=== PATIENT | male | born 1955 | race Caucasian/White ===

== ENCOUNTER 2017-10-23 14:09 | Outpatient (CLI) | payer OTHER ==
[~2017-10-23 14:09] MED LIST: ALPR0.5T8 PO; ASPI-611 PO; CETI-102 PO; CLOT15CR73 TP; CYCL-1 PO; EXEN10PE3 SQ; FENO135C PO; GLUC750T8 PO; GLYB-97 PO; HYDR-569 PO; LANTUS SQ; LOSA100T28 PO; MESA10002 RC; MULT1TAB74 PO; OMEG1CAP2 PO; TADA10TA PO; TRAM50TA2 PO; ZOC40T PO
== END 2017-10-23 23:59 | disposition home or self-care (01) ==
LOC: RAD 14:09
PROVIDERS: ATTEND Nurse Practitioner Family
DX: M47.816 Spondylosis without myelopathy or radiculopathy, lumbar region (principal); M48.061 Spinal stenosis, lumbar region without neurogenic claudication; I10 Essential (primary) hypertension; E11.9 Type 2 diabetes mellitus without complications; F17.200 Nicotine dependence, unspecified, uncomplicated
CPT/HCPCS: 72148

== ENCOUNTER → 2017-12-19 | Outpatient (CLI) | payer OTHER ==
[2017-12-19 06:45] LABS: BASOPHILS % (AUTO) 0.4 % (0-1); EOSINOPHILS # (AUTO) 0.1 X10'3 (0-0.9); EOSINOPHILS % (AUTO) 1.2 % (0-6); HEMOGLOBIN 16.8 g/dl (14.0-17.9); LYMPHOCYTES # (AUTO) 1.9 X10'3 (1.1-4.8); LYMPHOCYTES % (AUTO) 22.3 % (21-51); MEAN CORPUSCULAR HEMOGLOBIN 30.4 PG (27.0-31.0); MEAN CORPUSCULAR HGB CONC 35.6 % (33.0-36.5); MEAN CORPUSCULAR VOLUME 85.3 FL (78-98); MEAN PLATELET VOLUME 9.1 FL (7.4-10.4); MONOCYTES # (AUTO) 0.5 X10'3 (0-0.9); MONOCYTES % (AUTO) 6.2 % (2-12); NEUTROPHILS # (AUTO) 5.8 X10'3 (1.8-7.7); NEUTROPHILS % (AUTO) 69.9 % (42-75); PLATELET COUNT 200 X10'3 (140-440); RED BLOOD COUNT 5.51 X10'6 (4.70-6.10); RED CELL DISTRIBUTION WIDTH 13.9 % (11.5-14.5); WHITE BLOOD COUNT 8.3 X10'3 (4.5-11.0)
[2017-12-19 07:03] LABS: HEMOGLOBIN A1C 9.1 % (4.5-6.2)
[2017-12-19 07:07] LABS: ALANINE AMINOTRANSFERASE 66 U/L (12-78); ALBUMIN 3.8 G/DL (3.4-5.0); ALBUMIN/GLOBULIN RATIO 1.1 (1.1-1.5); ALKALINE PHOSPHATASE 72 IU/L (46-116); ANION GAP 13 (8-16); ASPARTATE AMINO TRANSFERASE 37 U/L (10-37); BILIRUBIN,TOTAL 0.5 MG/DL (0.1-1.0); BLOOD UREA NITROGEN 18 MG/DL (7-18); BUN/CREATININE RATIO 20.5 (5.4-32.0); CALCIUM 9.1 MG/DL (8.5-10.1); CHLORIDE 101 MMOL/L (99-107); CHOL/HDL RATIO 17.6 (0.00-4.99); CHOLESTEROL 158 MG/DL (0-200); CREATININE 0.88 MG/DL (0.60-1.10); GLUCOSE 353 MG/DL (70-104); HDL CHOLESTEROL 9 MG/DL (35-60); LDL CHOLESTEROL 71 MG/DL (50-100); SODIUM 137 MMOL/L (135-145); TOTAL CARBON DIOXIDE 23.1 MMOL/L (24-32); TOTAL PROTEIN 7.4 G/DL (6.4-8.2); TRIGLYCERIDES 794 MG/DL (20-135); eGFR 88 ML/MIN
[2017-12-19 07:10] LABS: POTASSIUM 3.8 MMOL/L (3.5-5.1)
[2017-12-21 13:14] LABS: TESTOSTERONE, FREE, DIRECT 13.7 pg/mL (6.6-18.1)
== END ==
LOC: LAB 05:54
PROVIDERS: ATTEND Family Medicine
DX: Z00.01 Encounter for general adult medical examination with abnormal findings (principal); I10 Essential (primary) hypertension; E11.9 Type 2 diabetes mellitus without complications; F17.200 Nicotine dependence, unspecified, uncomplicated
CPT/HCPCS: 36415; 80053; 80061; 83036; 84402; 84403; 84439; 84443; 85025

== ENCOUNTER 2018-03-30 21:45 | Emergency (ER) | payer OTHER ==
[~2018-03-30] VITALS: Ht 172.7 cm; Wt 104.2 kg
[2018-03-30 21:50] VITALS: BP 163/79
[2018-03-30] MEDS ORDERED: ketorolac trometh. 30mg/ml inj. IM ONE (23:45)
== END 2018-03-31 03:05 | disposition home or self-care (01) ==
LOC: ER 21:45
DX: S76.811A Strain of other specified muscles, fascia and tendons at thigh level, right thigh, initial encounter (principal); I25.10 Atherosclerotic heart disease of native coronary artery without angina pectoris; E78.00 Pure hypercholesterolemia, unspecified; I49.9 Cardiac arrhythmia, unspecified; E11.9 Type 2 diabetes mellitus without complications; Z98.61 Coronary angioplasty status; Z79.82 Long term (current) use of aspirin; Z79.4 Long term (current) use of insulin; Z79.899 Other long term (current) drug therapy; W13.8XXA Fall from, out of or through other building or structure, initial encounter; Y93.39 Activity, other involving climbing, rappelling and jumping off; Y92.89 Other specified places as the place of occurrence of the external cause; Y99.8 Other external cause status
CPT/HCPCS: 96372; 99283; J1885

== ENCOUNTER 2018-06-29 09:24 | Inpatient (IN) | payer OTHER ==
[~2018-06-29] VITALS: Ht 172.7 cm; Wt 127.0 kg
[2018-06-29] MEDS ORDERED: acetaminophen 325mg tablet PO ONE (10:05)
[2018-06-29] MEDS ORDERED: normal saline 1000ML IV soln IVB ONE (10:05)
[2018-06-29 10:55] LABS: BASOPHILS % (AUTO) 0.4 % (0-1); EOSINOPHILS % (AUTO) 0.2 % (0-6); HEMATOCRIT 48.8 % (42.0-52.0); HEMOGLOBIN 16.3 g/dl (14.0-17.9); LYMPHOCYTES # (AUTO) 0.4 X10'3 (1.1-4.8); LYMPHOCYTES % (AUTO) 4.9 % (21-51); MEAN CORPUSCULAR HEMOGLOBIN 29.1 PG (27.0-31.0); MEAN CORPUSCULAR HGB CONC 33.4 % (33.0-36.5); MEAN CORPUSCULAR VOLUME 87.2 FL (78-98); MONOCYTES # (AUTO) 0.3 X10'3 (0-0.9); MONOCYTES % (AUTO) 3.5 % (2-12); NEUTROPHILS # (AUTO) 8.1 X10'3 (1.8-7.7); PLATELET COUNT 138 X10'3 (140-440); RED CELL DISTRIBUTION WIDTH 13.3 % (11.5-14.5); WHITE BLOOD COUNT 8.8 X10'3 (4.5-11.0)
[2018-06-29] MEDS ORDERED: ondansetron/PF 4mg/2ml inj IV ONE (11:00)
[2018-06-29 11:01] LABS: CLARITY,URINE CLEAR (Clear); COLOR,URINE YELLOW (Yellow); GLUCOSE, URINE >=1000 mg/dl (Neg); KETONES,URINE TRACE mg/dl (Neg); LEUKOCYTE ESTERASE ,URINE NEGATIVE (Neg); NITRITES, URINE NEGATIVE (Neg); OCCULT BLOOD,URINE TRACE-INTACT (Neg); PH,URINE 5.5 (4.8-8.0); PROTEIN,URINE 30 mg/dl (Neg); UROBILINOGEN,URINE 0.2 E.U/dL (0.2-1.0)
[2018-06-29 11:04] LABS: UA COLLECTION TYPE STRAIGHT CATH
[2018-06-29 11:05] LABS: PARTIAL THROMBOPLASTIN TIME 25 SECONDS (22-32); PROTHROMBIN TIME 10.7 SECONDS (9.0-12.0)
[2018-06-29 11:11] LABS: ALANINE AMINOTRANSFERASE 53 U/L (12-78); ALBUMIN 3.5 G/DL (3.4-5.0); ALKALINE PHOSPHATASE 46 IU/L (46-116); ANION GAP 13 (8-16); ASPARTATE AMINO TRANSFERASE 29 U/L (10-37); BILIRUBIN,TOTAL 0.7 MG/DL (0.1-1.0); BLOOD UREA NITROGEN 15 MG/DL (7-18); BUN/CREATININE RATIO 13.4 (5.4-32.0); CALCIUM 8.6 MG/DL (8.5-10.1); CHLORIDE 101 MMOL/L (99-107); CREATININE 1.12 MG/DL (0.60-1.10); GLUCOSE 174 MG/DL (70-104); POTASSIUM 3.5 MMOL/L (3.5-5.1); SODIUM 137 MMOL/L (135-145); TOTAL CARBON DIOXIDE 22.7 MMOL/L (24-32); TOTAL PROTEIN 6.9 G/DL (6.4-8.2); eGFR 67 ML/MIN
[2018-06-29 11:26] LABS: AMORPHOUS URATES 1+; BACTERIA,URINE NONE SEEN /HPF (Neg); RBC,URINE 0-2 /HPF (0-2); SQUAMOUS EPITHELIAL CELL,UR FEW /LPF (FEW); WBC,URINE 0-4 /HPF (0-4)
[2018-06-29] MEDS ORDERED: piperacillin/tazo 3.375gm/50ml 50 ML IV ONE (12:40)
[2018-06-29] MEDS ORDERED: cyclobenzaprine 10mg tablet PO PRN (14:40)
[2018-06-29] MEDS ORDERED: ALPRAZolam 0.5mg tablet PO PRN (14:40)
[2018-06-29] MEDS ORDERED: magnesium hydroxide 30ml (MOM) UD suspension PO PRN (14:45)
[2018-06-29] MEDS ORDERED: bisacodyl 10mg suppository rectal RC PRN (14:45)
[2018-06-29] MEDS ORDERED: diphenhydrAMINE 25mg capsule PO PRN (14:45)
[2018-06-29] MEDS: K and/or MAG REPLACEMENT MC SCH (14:45)
[2018-06-29] MEDS ORDERED: ondansetron/PF 4mg/2ml inj IV PRN (14:45)
[2018-06-29] MEDS ORDERED: potassium Cl 40MEQ/NS 500ml 500 ML IV PRN ×2 (14:45)
[2018-06-29] MEDS ORDERED: MESSAGE TO PHARMACY PO ONE (14:45)
[2018-06-29] MEDS ORDERED: dextrose 50%-water 50ml dispensing syringe IV PRN ×2 (14:45)
[2018-06-29] MEDS ORDERED: HYDROcodone/acetaminophen 5mg/325mg tablet PO PRN (14:45)
[2018-06-29] MEDS ORDERED: acetaminophen 325mg tablet PO PRN ×2 (14:45)
[2018-06-29] MEDS ORDERED: morphine 4 MG/ML inj SYRINge IV PRN ×2 (14:45)
[2018-06-29] MEDS ORDERED: HYDROcodone/acetaminophen 10/325mg tab PO PRN (14:45)
[2018-06-29] MEDS ORDERED: glucagon, human recombinant 1mg kit SUBCUT PRN (14:45)
[2018-06-29] MEDS ORDERED: magnesium 1gm/100ml D5W IVPB 100 ML IV PRN (14:45)
[2018-06-29] MEDS ORDERED: mag hydrox/Alum hydrox/simeth 30ml oral suspension PO PRN (14:45)
[2018-06-29] MEDS ORDERED: insulin Lispro (HumaLOG) vial - multi-dose SQ SCH (14:45)
[2018-06-29] MEDS ORDERED: dextrose ORAL solution 15 GM/59 ML bottle PO PRN ×2 (14:45)
[2018-06-29] MEDS ORDERED: potassium Cl 20 mEq SR tablet PO PRN (14:45)
[2018-06-29] MEDS ORDERED: magnesium 4gm in 100ml NS 100 ML IV PRN (14:45)
[2018-06-29] MEDS ORDERED: metoclopramide 5 mg/ml inj IV PRN (14:45)
[2018-06-29] MEDS ORDERED: acetaminophen 650mg rectal suppository RC PRN (14:45)
[2018-06-29] MEDS ORDERED: LIDOcaine 1% w/EPI 1:100,000 30ml vial (MDV) ONE (14:46)
[2018-06-29] MEDS ORDERED: LIDOcaine 1% 30ml preserv. free vial ONE (14:46)
[2018-06-29] MEDS ORDERED: LIDOcaine 1%/PF 5ML 10 MG/ML VIAL ONE (15:27)
[2018-06-29 15:36] LABS: CLARITY,URINE CLEAR (Clear); COLOR,URINE YELLOW (Yellow); GLUCOSE, URINE >=1000 mg/dl (Neg); KETONES,URINE NEGATIVE (Neg); LEUKOCYTE ESTERASE ,URINE NEGATIVE (Neg); NITRITES, URINE NEGATIVE (Neg); OCCULT BLOOD,URINE MODERATE (Neg); PROTEIN,URINE 30 mg/dl (Neg); UROBILINOGEN,URINE 0.2 E.U/dL (0.2-1.0)
[2018-06-29] MEDS ORDERED: vancomycin/NS 1 GM ADD-VANTAGE 250 ML X 1 DOSE IV ONE ×2 (15:40→17:30)
[2018-06-29 15:44] LABS: UA COLLECTION TYPE CLN CATCH MIDSTREAM
[2018-06-29 15:54] LABS: WBC,URINE 0-4 /HPF (0-4)
[2018-06-29 15:55] LABS: BACTERIA,URINE NONE SEEN /HPF (Neg); SQUAMOUS EPITHELIAL CELL,UR FEW /LPF (FEW)
[2018-06-29] MEDS: normal saline 1000ml 1,000 ML IV SCH ×2 (16:22→22:43)
[2018-06-29] MEDS: azithromycin 250mg tablet PO SCH (16:29)
[2018-06-29 16:48] VITALS: BP 117/59
[2018-06-29 19:00] VITALS: BP 112/68
[2018-06-29] MEDS: aspirin 81mg tablet.DR PO SCH (20:00)
[2018-06-29] MEDS ORDERED: non-formulary drug (Omega-3 Fatty Acids/Fish Oil (Fish Oil 1,000 mg Capsule) 1 CAP) PO SCH (20:00)
[2018-06-29] MEDS: atorvastatin 20mg tablet PO SCH (20:46)
[2018-06-29] MEDS: piperacillin/tazo 3.375gm/50ml 50 ML IV SCH (20:46)
[2018-06-29] MEDS: traMADol 50MG tablet PO SCH (20:50)
[2018-06-29] MEDS: insulin glargine (Lantus) pen - multi-dose SQ SCH (21:00)
[2018-06-29] MEDS ORDERED: temazepam 15mg capsule PO PRN (21:00)
[2018-06-29 23:00] VITALS: BP 130/77
[2018-06-30 03:00] VITALS: BP 134/66
[2018-06-30] MEDS: piperacillin/tazo 3.375gm/50ml 50 ML IV SCH ×4 (03:22→20:17)
[2018-06-30 06:00] VITALS: BP 142/71
[2018-06-30 06:08] LABS: BASOPHILS % (AUTO) 0.2 % (0-1); EOSINOPHILS # (AUTO) 0.1 X10'3 (0-0.9); EOSINOPHILS % (AUTO) 0.9 % (0-6); HEMATOCRIT 41.3 % (42.0-52.0); HEMOGLOBIN 14.1 g/dl (14.0-17.9); LYMPHOCYTES % (AUTO) 13.7 % (21-51); MEAN CORPUSCULAR HEMOGLOBIN 29.6 PG (27.0-31.0); MEAN CORPUSCULAR HGB CONC 34.1 % (33.0-36.5); MEAN CORPUSCULAR VOLUME 86.7 FL (78-98); MEAN PLATELET VOLUME 8.8 FL (7.4-10.4); MONOCYTES # (AUTO) 0.6 X10'3 (0-0.9); NEUTROPHILS # (AUTO) 5.4 X10'3 (1.8-7.7); NEUTROPHILS % (AUTO) 76.2 % (42-75); PLATELET COUNT 122 X10'3 (140-440); RED BLOOD COUNT 4.76 X10'6 (4.70-6.10); RED CELL DISTRIBUTION WIDTH 14.2 % (11.5-14.5); WHITE BLOOD COUNT 7.1 X10'3 (4.5-11.0)
[2018-06-30 06:36] LABS: ALANINE AMINOTRANSFERASE 38 U/L (12-78); ALBUMIN 2.7 G/DL (3.4-5.0); ALBUMIN/GLOBULIN RATIO 0.8 (1.1-1.5); ALKALINE PHOSPHATASE 35 IU/L (46-116); ANION GAP 9 (8-16); ASPARTATE AMINO TRANSFERASE 28 U/L (10-37); BILIRUBIN,TOTAL 0.7 MG/DL (0.1-1.0); BLOOD UREA NITROGEN 13 MG/DL (7-18); BUN/CREATININE RATIO 16.9 (5.4-32.0); CALCIUM 7.4 MG/DL (8.5-10.1); CHLORIDE 105 MMOL/L (99-107); CHOLESTEROL 83 MG/DL (0-200); CREATININE 0.77 MG/DL (0.60-1.10); GLUCOSE 86 MG/DL (70-104); HDL CHOLESTEROL 13 MG/DL (35-60); MAGNESIUM 1.4 MG/DL (1.5-2.4); PHOSPHORUS 1.9 MG/DL (2.3-4.5); SODIUM 138 MMOL/L (135-145); TOTAL PROTEIN 5.9 G/DL (6.4-8.2); eGFR > 90 ML/MIN
[2018-06-30 06:37] LABS: CHOL/HDL RATIO 6.4 (0.00-4.99); LDL CHOLESTEROL 43 MG/DL (50-100); TRIGLYCERIDES 190 MG/DL (20-135)
[2018-06-30] MEDS: normal saline 1000ml 1,000 ML IV SCH ×2 (06:43→14:43)
[2018-06-30] MEDS: multivitamins, therapeutics tablet PO SCH (07:51)
[2018-06-30] MEDS: traMADol 50MG tablet PO SCH ×2 (07:52→20:24)
[2018-06-30] MEDS: losartan 50mg tablet PO SCH (07:52)
[2018-06-30] MEDS: fenofibrate 145mg tablet PO SCH (07:52)
[2018-06-30] MEDS: magnesium Cl slow-release 64mg tablet PO PRN ×2 (07:53→17:10)
[2018-06-30] MEDS: potassium Cl 20 mEq SR tablet PO PRN ×3 (07:53→20:18)
[2018-06-30] MEDS: cetirizine 10mg tablet PO SCH (07:53)
[2018-06-30] MEDS: azithromycin 250mg tablet PO SCH (07:53)
[2018-06-30] MEDS: aspirin 81mg tablet.DR PO SCH ×2 (08:00→20:18)
[2018-06-30] MEDS ORDERED: GLUCOSAMINE HCL 1500 MG PO SCH (08:00)
[2018-06-30] MEDS: enoxaparin 40mg/0.4ml syringe SUBCUT SCH (08:00)
[2018-06-30] MEDS: K and/or MAG REPLACEMENT MC SCH (08:00)
[2018-06-30] MEDS ORDERED: sodium phosphate inj. 30 MMOL in dextrose 5%-water 250 ML IV ONE (08:25)
[2018-06-30] MEDS ORDERED: iohexol 350MG/ML 100ml bottle IV ONE (09:58)
[2018-06-30] MEDS ORDERED: LIDOcaine 1%/PF 5ML 10 MG/ML VIAL ONE (10:32)
[2018-06-30 12:30] VITALS: BP 148/84
[2018-06-30 13:26] LABS: GLUCOSE,CSF 53 MG/DL (40-75); TOTAL PROTEIN,CSF 41 MG/DL (30-60)
[2018-06-30 13:51] LABS: APPEARANCE,CSF CLEAR; CSF SUPERNATANT COLOR COLORLESS; CSF VOLUME 29 ML
[2018-06-30 13:52] LABS: CSF RBC 6 /CU MM (0); CSF WBC CT 2 /CU MM (0-5); TUBE# COUNTED 3
[2018-06-30 15:00] VITALS: BP 127/81
[2018-06-30 19:00] VITALS: BP 127/72
[2018-06-30] MEDS: atorvastatin 20mg tablet PO SCH (20:18)
[2018-06-30] MEDS: lactobacillus rhamnosus 10,000 MMU CELLS/CAPSULE PO SCH (20:18)
[2018-06-30] MEDS: insulin glargine (Lantus) pen - multi-dose SQ SCH (21:00)
[2018-06-30 23:00] VITALS: BP 113/71
[2018-07-01] MEDS ORDERED: VANCOMYCIN LEVEL IV ONE (00:30)
[2018-07-01 03:00] VITALS: BP 122/75
[2018-07-01] MEDS: normal saline 1000ml 1,000 ML IV SCH ×4 (03:52→22:43)
[2018-07-01] MEDS: piperacillin/tazo 3.375gm/50ml 50 ML IV SCH ×4 (03:59→21:02)
[2018-07-01 07:00] VITALS: BP 147/85
[2018-07-01 07:23] LABS: BASOPHILS % (AUTO) 0.1 % (0-1); EOSINOPHILS # (AUTO) 0.2 X10'3 (0-0.9); EOSINOPHILS % (AUTO) 3.4 % (0-6); HEMATOCRIT 44.4 % (42.0-52.0); HEMOGLOBIN 14.9 g/dl (14.0-17.9); LYMPHOCYTES # (AUTO) 1.3 X10'3 (1.1-4.8); LYMPHOCYTES % (AUTO) 22.2 % (21-51); MEAN CORPUSCULAR HEMOGLOBIN 29.6 PG (27.0-31.0); MEAN CORPUSCULAR HGB CONC 33.6 % (33.0-36.5); MEAN CORPUSCULAR VOLUME 88.2 FL (78-98); MEAN PLATELET VOLUME 9.1 FL (7.4-10.4); MONOCYTES # (AUTO) 0.5 X10'3 (0-0.9); MONOCYTES % (AUTO) 8.2 % (2-12); NEUTROPHILS # (AUTO) 3.8 X10'3 (1.8-7.7); NEUTROPHILS % (AUTO) 66.1 % (42-75); PLATELET COUNT 131 X10'3 (140-440); RED BLOOD COUNT 5.04 X10'6 (4.70-6.10); RED CELL DISTRIBUTION WIDTH 13.9 % (11.5-14.5); WHITE BLOOD COUNT 5.8 X10'3 (4.5-11.0)
[2018-07-01 07:41] LABS: ALANINE AMINOTRANSFERASE 45 U/L (12-78); ALBUMIN 3.1 G/DL (3.4-5.0); ALBUMIN/GLOBULIN RATIO 0.9 (1.1-1.5); ALKALINE PHOSPHATASE 37 IU/L (46-116); ANION GAP 10 (8-16); ASPARTATE AMINO TRANSFERASE 26 U/L (10-37); BILIRUBIN,TOTAL 0.8 MG/DL (0.1-1.0); BLOOD UREA NITROGEN 10 MG/DL (7-18); BUN/CREATININE RATIO 13.5 (5.4-32.0); CALCIUM 8.3 MG/DL (8.5-10.1); CHLORIDE 105 MMOL/L (99-107); CREATININE 0.74 MG/DL (0.60-1.10); GLUCOSE 145 MG/DL (70-104); PHOSPHORUS 1.7 MG/DL (2.3-4.5); POTASSIUM 3.9 MMOL/L (3.5-5.1); SODIUM 138 MMOL/L (135-145); TOTAL CARBON DIOXIDE 23.4 MMOL/L (24-32); TOTAL PROTEIN 6.7 G/DL (6.4-8.2); eGFR > 90 ML/MIN
[2018-07-01] MEDS: K and/or MAG REPLACEMENT MC SCH (08:00)
[2018-07-01] MEDS: azithromycin 250mg tablet PO SCH (08:06)
[2018-07-01] MEDS: multivitamins, therapeutics tablet PO SCH (08:06)
[2018-07-01] MEDS: enoxaparin 40mg/0.4ml syringe SUBCUT SCH (08:06)
[2018-07-01] MEDS: lactobacillus rhamnosus 10,000 MMU CELLS/CAPSULE PO SCH ×2 (08:06→21:03)
[2018-07-01] MEDS: cetirizine 10mg tablet PO SCH (08:06)
[2018-07-01] MEDS: aspirin 81mg tablet.DR PO SCH ×2 (08:07→21:03)
[2018-07-01] MEDS: fenofibrate 145mg tablet PO SCH (08:07)
[2018-07-01] MEDS: losartan 50mg tablet PO SCH (08:07)
[2018-07-01] MEDS: traMADol 50MG tablet PO SCH ×2 (08:07→21:03)
[2018-07-01] MEDS: Neutra Phos packet PO PRN ×2 (10:14→21:15)
[2018-07-01 11:00] VITALS: BP 143/83
[2018-07-01] MEDS ORDERED: Neutra Phos packet PO SCH (13:00)
[2018-07-01 19:00] VITALS: BP 145/85
[2018-07-01] MEDS: insulin glargine (Lantus) pen - multi-dose SQ SCH (21:00)
[2018-07-01] MEDS: atorvastatin 20mg tablet PO SCH (21:04)
[2018-07-01 23:00] VITALS: BP 142/78
[2018-07-02] MEDS: piperacillin/tazo 3.375gm/50ml 50 ML IV SCH ×2 (01:11→07:11)
[2018-07-02 03:00] VITALS: BP 146/80
[2018-07-02 06:00] VITALS: BP 142/90
[2018-07-02 06:13] LABS: BASOPHILS % (AUTO) 0.3 % (0-1); EOSINOPHILS # (AUTO) 0.3 X10'3 (0-0.9); EOSINOPHILS % (AUTO) 4.3 % (0-6); HEMATOCRIT 42.9 % (42.0-52.0); HEMOGLOBIN 14.9 g/dl (14.0-17.9); LYMPHOCYTES # (AUTO) 1.3 X10'3 (1.1-4.8); LYMPHOCYTES % (AUTO) 21.6 % (21-51); MEAN CORPUSCULAR HEMOGLOBIN 30.2 PG (27.0-31.0); MEAN CORPUSCULAR HGB CONC 34.6 % (33.0-36.5); MEAN CORPUSCULAR VOLUME 87.2 FL (78-98); MEAN PLATELET VOLUME 9.1 FL (7.4-10.4); MONOCYTES # (AUTO) 0.4 X10'3 (0-0.9); MONOCYTES % (AUTO) 7.6 % (2-12); NEUTROPHILS # (AUTO) 3.9 X10'3 (1.8-7.7); NEUTROPHILS % (AUTO) 66.2 % (42-75); PLATELET COUNT 158 X10'3 (140-440); RED BLOOD COUNT 4.91 X10'6 (4.70-6.10); WHITE BLOOD COUNT 5.9 X10'3 (4.5-11.0)
[2018-07-02 06:34] LABS: ALANINE AMINOTRANSFERASE 40 U/L (12-78); ALBUMIN 3.1 G/DL (3.4-5.0); ALBUMIN/GLOBULIN RATIO 0.8 (1.1-1.5); ALKALINE PHOSPHATASE 41 IU/L (46-116); ANION GAP 8 (8-16); ASPARTATE AMINO TRANSFERASE 20 U/L (10-37); BILIRUBIN,TOTAL 0.8 MG/DL (0.1-1.0); BLOOD UREA NITROGEN 9 MG/DL (7-18); BUN/CREATININE RATIO 9.8 (5.4-32.0); CALCIUM 8.6 MG/DL (8.5-10.1); CHLORIDE 106 MMOL/L (99-107); CREATININE 0.92 MG/DL (0.60-1.10); GLUCOSE 154 MG/DL (70-104); PHOSPHORUS 2.4 MG/DL (2.3-4.5); POTASSIUM 3.9 MMOL/L (3.5-5.1); SODIUM 140 MMOL/L (135-145); TOTAL PROTEIN 6.8 G/DL (6.4-8.2); eGFR 84 ML/MIN
[2018-07-02] MEDS: normal saline 1000ml 1,000 ML IV SCH (06:43)
[2018-07-02] MEDS: multivitamins, therapeutics tablet PO SCH (07:11)
[2018-07-02] MEDS: losartan 50mg tablet PO SCH (07:11)
[2018-07-02] MEDS: lactobacillus rhamnosus 10,000 MMU CELLS/CAPSULE PO SCH (07:11)
[2018-07-02] MEDS: aspirin 81mg tablet.DR PO SCH (07:11)
[2018-07-02] MEDS: enoxaparin 40mg/0.4ml syringe SUBCUT SCH (07:12)
[2018-07-02] MEDS: cetirizine 10mg tablet PO SCH (07:12)
[2018-07-02] MEDS: traMADol 50MG tablet PO SCH (07:12)
[2018-07-02] MEDS: azithromycin 250mg tablet PO SCH (07:12)
[2018-07-02] MEDS: fenofibrate 145mg tablet PO SCH (07:14)
[2018-07-02] MEDS: K and/or MAG REPLACEMENT MC SCH (08:00)
[2018-07-02 11:00] VITALS: BP 158/86
[2018-07-02 13:35] LABS: VDRL, CSF Non Reactive (Non Rea:<1:1)
[2018-07-02] MEDS ORDERED: AMOX-422 PO (13:58)
[2018-07-02] MEDS ORDERED: VANCOMYCIN LEVEL IV ONE (19:30)
== END 2018-07-02 16:02 | disposition home or self-care (01) | DRG 682 ==
LOC: ER 09:25 → ED HOLD 14:43 → PCU 3S 16:10 → CMPBEDREQ 19:37
PROVIDERS: ADMIT Family Medicine; ATTEND Family Medicine
PROC: BW211ZZ Computerized Tomography (CT Scan) of Abdomen and Pelvis using Low Osmolar Contrast (ICD-10-PCS; 2018-06-29)
PROC: 0SJ Lower Joints, Inspection (ICD-10-PCS; 2018-06-29)
PROC: BW281ZZ Computerized Tomography (CT Scan) of Head using Low Osmolar Contrast (ICD-10-PCS; 2018-06-30)
PROC: B3201ZZ Computerized Tomography (CT Scan) of Thoracic Aorta using Low Osmolar Contrast (ICD-10-PCS; 2018-06-30)
PROC: 009U3ZX Drainage of Spinal Canal, Percutaneous Approach, Diagnostic (ICD-10-PCS; 2018-06-30)
PROC: B01B1ZZ Fluoroscopy of Spinal Cord using Low Osmolar Contrast (ICD-10-PCS; 2018-06-30)
PROC: 5A09357 Assistance with Respiratory Ventilation, Less than 24 Consecutive Hours, Continuous Positive Airway Pressure (ICD-10-PCS; principal; 2018-07-01)
DX: N17.9 Acute kidney failure, unspecified (principal); G93.40 Encephalopathy, unspecified; Z68.41 Body mass index [BMI] 40.0-44.9, adult; E87.1 Hypo-osmolality and hyponatremia; J45.901 Unspecified asthma with (acute) exacerbation; E11.9 Type 2 diabetes mellitus without complications; E66.9 Obesity, unspecified; E78.00 Pure hypercholesterolemia, unspecified; E78.1 Pure hyperglyceridemia; E78.5 Hyperlipidemia, unspecified; E83.39 Other disorders of phosphorus metabolism; E83.42 Hypomagnesemia; E87.6 Hypokalemia; G47.33 Obstructive sleep apnea (adult) (pediatric); K52.9 Noninfective gastroenteritis and colitis, unspecified; G89.29 Other chronic pain; I10 Essential (primary) hypertension; G93.0 Cerebral cysts; W01.0XXA Fall on same level from slipping, tripping and stumbling without subsequent striking against object, initial encounter; I25.10 Atherosclerotic heart disease of native coronary artery without angina pectoris; F32.9 Major depressive disorder, single episode, unspecified; F41.9 Anxiety disorder, unspecified; R00.0 Tachycardia, unspecified; R16.2 Hepatomegaly with splenomegaly, not elsewhere classified; J01.40 Acute pansinusitis, unspecified; J34.2 Deviated nasal septum; M51.36 Other intervertebral disc degeneration, lumbar region; Z80.1 Family history of malignant neoplasm of trachea, bronchus and lung; Z87.891 Personal history of nicotine dependence; Z95.5 Presence of coronary angioplasty implant and graft; Y93.89 Activity, other specified; Y92.89 Other specified places as the place of occurrence of the external cause; Y99.8 Other external cause status
CPT/HCPCS: 36415; 62270; 70450; 70460; 70544; 70551; 71045; 71275; 72020; 74177; 76700; 77003; 80053; 80061; 80202; 81001; 82140; 82945; 82948; 83036; 83605; 83735; 84100; 84145; 84157; 84484; 85025; 85610; 85730; 86592; 86617; 87015; 87040; 87070; 89051; 93005; 93306; 96361; 96365; 96375; 97116; 97161; 99285; A4353; J1650; J1815; J2001; J2405; J2543; J3370; J3490; J7030; J7060; Q0163; Q9967

== ENCOUNTER 2018-08-08 08:09 | Outpatient (CLI) | payer OTHER ==
[~2018-08-08 08:09] MED LIST changes: -CLOT15CR73 TP; -EXEN10PE3 SQ; +HYDR-4383 PO; -HYDR-569 PO; +LOSA100T15 PO; -LOSA100T28 PO; -MESA10002 RC; -TADA10TA PO
[2018-08-08 08:57] LABS: CLARITY,URINE CLEAR (Clear); COLOR,URINE YELLOW (Yellow); GLUCOSE, URINE >=1000 mg/dl (Neg); KETONES,URINE NEGATIVE (Neg); LEUKOCYTE ESTERASE ,URINE NEGATIVE (Neg); NITRITES, URINE NEGATIVE (Neg); OCCULT BLOOD,URINE NEGATIVE (Neg); PROTEIN,URINE 100 mg/dl (Neg); UROBILINOGEN,URINE 0.2 E.U/dL (0.2-1.0)
[2018-08-08 09:00] LABS: BASOPHILS % (AUTO) 0.4 % (0-1); EOSINOPHILS # (AUTO) 0.1 X10'3 (0-0.9); EOSINOPHILS % (AUTO) 1.1 % (0-6); HEMATOCRIT 50.3 % (42.0-52.0); HEMOGLOBIN 17.2 g/dl (14.0-17.9); LYMPHOCYTES # (AUTO) 1.7 X10'3 (1.1-4.8); LYMPHOCYTES % (AUTO) 24.1 % (21-51); MEAN CORPUSCULAR HEMOGLOBIN 29.4 PG (27.0-31.0); MEAN CORPUSCULAR HGB CONC 34.2 % (33.0-36.5); MEAN CORPUSCULAR VOLUME 85.8 FL (78-98); MEAN PLATELET VOLUME 9.4 FL (7.4-10.4); MONOCYTES # (AUTO) 0.4 X10'3 (0-0.9); MONOCYTES % (AUTO) 5.5 % (2-12); NEUTROPHILS # (AUTO) 4.7 X10'3 (1.8-7.7); NEUTROPHILS % (AUTO) 68.9 % (42-75); PLATELET COUNT 172 X10'3 (140-440); RED BLOOD COUNT 5.87 X10'6 (4.70-6.10); RED CELL DISTRIBUTION WIDTH 13.6 % (11.5-14.5); WHITE BLOOD COUNT 6.9 X10'3 (4.5-11.0)
[2018-08-08 09:02] LABS: UA COLLECTION TYPE VOIDED
[2018-08-08 09:05] LABS: BACTERIA,URINE NONE SEEN /HPF (Neg); MUCUS STRANDS NONE SEEN /LPF (Neg); RBC,URINE 0-2 /HPF (0-2); SQUAMOUS EPITHELIAL CELL,UR NONE SEEN /LPF (FEW); WBC,URINE NONE SEEN /HPF (0-4)
[2018-08-08 09:16] LABS: ALANINE AMINOTRANSFERASE 54 U/L (12-78); ALBUMIN 3.8 G/DL (3.4-5.0); ALKALINE PHOSPHATASE 53 IU/L (46-116); ANION GAP 13 (8-16); ASPARTATE AMINO TRANSFERASE 35 U/L (10-37); BILIRUBIN,TOTAL 0.5 MG/DL (0.1-1.0); BLOOD UREA NITROGEN 21 MG/DL (7-18); CALCIUM 8.6 MG/DL (8.5-10.1); CHLORIDE 105 MMOL/L (99-107); CHOL/HDL RATIO 9.4 (0.00-4.99); CHOLESTEROL 151 MG/DL (0-200); CREATININE 0.84 MG/DL (0.60-1.10); GLUCOSE 129 MG/DL (70-104); HDL CHOLESTEROL 16 MG/DL (35-60); LDL CHOLESTEROL 75 MG/DL (50-100); SODIUM 141 MMOL/L (135-145); TOTAL CARBON DIOXIDE 23.5 MMOL/L (24-32); TOTAL PROTEIN 7.5 G/DL (6.4-8.2); TRIGLYCERIDES 557 MG/DL (20-135); eGFR > 90 ML/MIN
[2018-08-08 09:18] LABS: POTASSIUM 3.7 MMOL/L (3.5-5.1)
[2018-08-09 08:51] LABS: MICROALB/CRT, RATIO 548.7 mg/g creat (0.0-30.0)
== END 2018-08-08 23:59 | disposition home or self-care (01) ==
LOC: LAB 08:09
PROVIDERS: ATTEND Family Medicine
DX: Z00.01 Encounter for general adult medical examination with abnormal findings (principal); I10 Essential (primary) hypertension; Z79.82 Long term (current) use of aspirin; Z79.4 Long term (current) use of insulin; Z87.891 Personal history of nicotine dependence
CPT/HCPCS: 36415; 80053; 80061; 81001; 82043; 82570; 84402; 84403; 84439; 84443; 85025

== ENCOUNTER 2018-11-27 09:31 | Outpatient (CLI) | payer OTHER ==
[~2018-11-27 09:31] MED LIST changes: -LOSA100T15 PO; +LOSA100T57 PO
== END 2018-11-27 23:59 | disposition home or self-care (01) ==
LOC: RAD 09:31
PROVIDERS: ATTEND Family Medicine
DX: M19.072 Primary osteoarthritis, left ankle and foot (principal); M25.775 Osteophyte, left foot; M77.32 Calcaneal spur, left foot; I10 Essential (primary) hypertension; E11.9 Type 2 diabetes mellitus without complications; Z79.82 Long term (current) use of aspirin
CPT/HCPCS: 73610; 73630

== ENCOUNTER 2019-02-01 09:43 | Outpatient (CLI) | payer OTHER | END 2019-02-01 23:59 | disposition home or self-care (01) | LOC: RAD 09:43 | PROVIDERS: ATTEND Family Medicine | DX: M48.061 Spinal stenosis, lumbar region without neurogenic claudication (principal); M47.816 Spondylosis without myelopathy or radiculopathy, lumbar region; N28.1 Cyst of kidney, acquired; R60.0 Localized edema; I10 Essential (primary) hypertension; E11.9 Type 2 diabetes mellitus without complications; Z87.891 Personal history of nicotine dependence | CPT/HCPCS: 72148 ==

== ENCOUNTER 2019-03-01 08:10 | Outpatient (CLI) | payer OTHER ==
[2019-03-01 09:16] LABS: BASOPHILS % (AUTO) 0.3 % (0-1); EOSINOPHILS # (AUTO) 0.1 X10'3 (0-0.9); EOSINOPHILS % (AUTO) 1.6 % (0-6); HEMATOCRIT 47.6 % (42.0-52.0); LYMPHOCYTES # (AUTO) 1.4 X10'3 (1.1-4.8); LYMPHOCYTES % (AUTO) 24.2 % (21-51); MEAN CORPUSCULAR HEMOGLOBIN 29.4 PG (27.0-31.0); MEAN CORPUSCULAR HGB CONC 33.7 g/dL (33.0-36.5); MEAN CORPUSCULAR VOLUME 87.4 FL (78-98); MEAN PLATELET VOLUME 8.9 FL (7.4-10.4); MONOCYTES # (AUTO) 0.5 X10'3 (0-0.9); MONOCYTES % (AUTO) 8.4 % (2-12); NEUTROPHILS # (AUTO) 3.7 X10'3 (1.8-7.7); NEUTROPHILS % (AUTO) 65.5 % (42-75); PLATELET COUNT 171 X10'3 (140-440); RED BLOOD COUNT 5.44 X10'6 (4.70-6.10); RED CELL DISTRIBUTION WIDTH 14.2 % (11.5-14.5); WHITE BLOOD COUNT 5.7 X10'3 (4.5-11.0)
[2019-03-01 09:20] LABS: CLARITY,URINE CLEAR (Clear); COLOR,URINE YELLOW (Yellow); GLUCOSE, URINE >=1000 mg/dl (Neg); KETONES,URINE NEGATIVE (Neg); LEUKOCYTE ESTERASE ,URINE NEGATIVE (Neg); NITRITES, URINE NEGATIVE (Neg); OCCULT BLOOD,URINE NEGATIVE (Neg); PROTEIN,URINE 30 mg/dl (Neg); UROBILINOGEN,URINE 0.2 E.U/dL (0.2-1.0)
[2019-03-01 09:38] LABS: ALANINE AMINOTRANSFERASE 60 U/L (12-78); ALBUMIN 3.7 G/DL (3.4-5.0); ALKALINE PHOSPHATASE 49 IU/L (46-116); ANION GAP 10 (8-16); ASPARTATE AMINO TRANSFERASE 38 U/L (10-37); BILIRUBIN,TOTAL 0.7 MG/DL (0.1-1.0); BLOOD UREA NITROGEN 21 MG/DL (7-18); BUN/CREATININE RATIO 33.9 (5.4-32.0); CALCIUM 8.8 MG/DL (8.5-10.1); CHLORIDE 104 MMOL/L (99-107); CHOL/HDL RATIO 9.8 (0.00-4.99); CHOLESTEROL 176 MG/DL (0-200); CREATININE 0.62 MG/DL (0.60-1.10); GLUCOSE 94 MG/DL (70-104); HDL CHOLESTEROL 18 MG/DL (35-60); LDL CHOLESTEROL 109 MG/DL (50-100); POTASSIUM 3.6 MMOL/L (3.5-5.1); SODIUM 138 MMOL/L (135-145); TOTAL CARBON DIOXIDE 24.2 MMOL/L (24-32); TOTAL PROTEIN 7.3 G/DL (6.4-8.2); TRIGLYCERIDES 369 MG/DL (20-135); eGFR > 90 ML/MIN
[2019-03-01 09:41] LABS: UA COLLECTION TYPE VOIDED
[2019-03-01 09:42] LABS: BACTERIA,URINE NONE SEEN /HPF (Neg); RBC,URINE NONE SEEN /HPF (0-2); SQUAMOUS EPITHELIAL CELL,UR FEW /LPF (FEW); WBC,URINE 0-4 /HPF (0-4)
[2019-03-03 15:09] LABS: TESTOSTERONE, FREE, DIRECT 1.8 pg/mL (6.6-18.1)
== END 2019-03-01 23:59 | disposition home or self-care (01) ==
LOC: LAB 08:10
PROVIDERS: ATTEND Family Medicine
DX: I10 Essential (primary) hypertension (principal); E11.9 Type 2 diabetes mellitus without complications; E78.5 Hyperlipidemia, unspecified; E03.9 Hypothyroidism, unspecified; F17.200 Nicotine dependence, unspecified, uncomplicated
CPT/HCPCS: 36415; 80053; 80061; 81001; 82043; 84402; 84439; 84443; 85025

== ENCOUNTER 2019-05-31 05:51 | Outpatient (CLI) | payer OTHER ==
[2019-05-31 06:49] LABS: CLARITY,URINE CLEAR (Clear); COLOR,URINE YELLOW (Yellow); GLUCOSE, URINE 500 mg/dl (Neg); KETONES,URINE NEGATIVE (Neg); LEUKOCYTE ESTERASE ,URINE NEGATIVE (Neg); NITRITES, URINE NEGATIVE (Neg); OCCULT BLOOD,URINE NEGATIVE (Neg); PROTEIN,URINE 30 mg/dl (Neg); UROBILINOGEN,URINE 0.2 E.U/dL (0.2-1.0)
[2019-05-31 06:52] LABS: UA COLLECTION TYPE VOIDED
[2019-05-31 06:54] LABS: BACTERIA,URINE NONE SEEN /HPF (Neg); MUCUS STRANDS NONE SEEN /LPF (Neg); RBC,URINE NONE SEEN /HPF (0-2); SQUAMOUS EPITHELIAL CELL,UR NONE SEEN /LPF (FEW); WBC,URINE 0-4 /HPF (0-4)
[2019-05-31 07:12] LABS: ALANINE AMINOTRANSFERASE 65 U/L (12-78); ALBUMIN 4.2 G/DL (3.4-5.0); ALBUMIN/GLOBULIN RATIO 1.1 (1.1-1.5); ALKALINE PHOSPHATASE 51 IU/L (46-116); ANION GAP 14 (8-16); ASPARTATE AMINO TRANSFERASE 29 U/L (10-37); BILIRUBIN,TOTAL 0.5 MG/DL (0.1-1.0); BLOOD UREA NITROGEN 18 MG/DL (7-18); BUN/CREATININE RATIO 21.7 (5.4-32.0); CALCIUM 9.4 MG/DL (8.5-10.1); CHLORIDE 106 MMOL/L (99-107); CHOL/HDL RATIO 7.4 (0.00-4.99); CHOLESTEROL 163 MG/DL (0-200); CREATININE 0.83 MG/DL (0.60-1.10); GLUCOSE 134 MG/DL (70-104); HDL CHOLESTEROL 22 MG/DL (35-60); LDL CHOLESTEROL 92 MG/DL (50-100); SODIUM 143 MMOL/L (135-145); TOTAL CARBON DIOXIDE 23.2 MMOL/L (24-32); TRIGLYCERIDES 387 MG/DL (20-135); eGFR > 90 ML/MIN
[2019-05-31 07:22] LABS: BASOPHILS % (AUTO) 0.4 % (0-1); EOSINOPHILS # (AUTO) 0.1 X10'3 (0-0.9); EOSINOPHILS % (AUTO) 0.8 % (0-6); HEMATOCRIT 51.8 % (42.0-52.0); HEMOGLOBIN 17.6 g/dl (14.0-17.9); LYMPHOCYTES # (AUTO) 1.9 X10'3 (1.1-4.8); LYMPHOCYTES % (AUTO) 22.7 % (21-51); MEAN CORPUSCULAR HEMOGLOBIN 29.9 PG (27.0-31.0); MONOCYTES # (AUTO) 0.6 X10'3 (0-0.9); MONOCYTES % (AUTO) 6.5 % (2-12); NEUTROPHILS # (AUTO) 5.9 X10'3 (1.8-7.7); NEUTROPHILS % (AUTO) 69.6 % (42-75); PLATELET COUNT 218 X10'3 (140-440); RED BLOOD COUNT 5.89 X10'6 (4.70-6.10); RED CELL DISTRIBUTION WIDTH 14.1 % (11.5-14.5); WHITE BLOOD COUNT 8.5 X10'3 (4.5-11.0)
[2019-06-02 13:15] LABS: TESTOSTERONE, FREE, DIRECT 2.4 pg/mL (6.6-18.1)
== END 2019-05-31 23:59 | disposition home or self-care (01) ==
LOC: LAB 05:51
PROVIDERS: ATTEND Family Medicine
DX: E11.9 Type 2 diabetes mellitus without complications (principal); E03.9 Hypothyroidism, unspecified; I10 Essential (primary) hypertension; E78.5 Hyperlipidemia, unspecified; Z87.891 Personal history of nicotine dependence
CPT/HCPCS: 36415; 80053; 80061; 81001; 82043; 84402; 84439; 84443; 85025

== ENCOUNTER 2019-07-08 08:34 | Outpatient (CLI) | payer OTHER | END 2019-07-08 23:59 | disposition home or self-care (01) | LOC: RAD 08:34 | PROVIDERS: ATTEND Family Medicine | DX: S86.012A Strain of left Achilles tendon, initial encounter (principal); M76.62 Achilles tendinitis, left leg; X58.XXXA Exposure to other specified factors, initial encounter; Y93.89 Activity, other specified; Y92.89 Other specified places as the place of occurrence of the external cause; Y99.8 Other external cause status; I10 Essential (primary) hypertension; E11.9 Type 2 diabetes mellitus without complications; Z87.891 Personal history of nicotine dependence | CPT/HCPCS: 73718 ==

== ENCOUNTER 2019-07-26 13:11 | Outpatient (CLI) | payer OTHER | END 2019-07-26 23:59 | disposition home or self-care (01) | LOC: CARD DIAG 13:11 | PROVIDERS: ATTEND Internal Medicine Cardiovascular Disease | DX: I05.8 Other rheumatic mitral valve diseases (principal); I10 Essential (primary) hypertension; E11.9 Type 2 diabetes mellitus without complications; Z87.891 Personal history of nicotine dependence; Z95.5 Presence of coronary angioplasty implant and graft | CPT/HCPCS: 93306 ==

== ENCOUNTER 2019-08-05 06:27 | Outpatient (CLI) | payer OTHER ==
[2019-08-05] VITALS (8 sets, daily range): BP systolic 143–160; BP diastolic 72–86
[2019-08-05] MEDS ORDERED: regadenoson 0.4mg/5ml syringe IV ONE (09:25)
[2019-08-05] MEDS ORDERED: normal saline 500ml IV soln 500 ML IV ONE (09:30)
[2019-08-05] MEDS ORDERED: aminophylline 250mg/10ml inj. IV PRN (09:30)
[2019-08-05] MEDS ORDERED: nitroGLYCERIN 0.4mg SUBLingual tab SL PRN (09:30)
== END 2019-08-05 23:59 | disposition home or self-care (01) ==
LOC: RAD 06:27
PROVIDERS: ATTEND Internal Medicine Cardiovascular Disease
DX: R07.9 Chest pain, unspecified (principal)
CPT/HCPCS: 78452; 93017; A9500; J0280; J2785; J7040

== ENCOUNTER 2019-08-31 07:31 | Outpatient (CLI) | payer OTHER ==
[2019-08-31 08:41] LABS: CLARITY,URINE CLEAR (Clear); COLOR,URINE YELLOW (Yellow); GLUCOSE, URINE >=1000 mg/dl (Neg); KETONES,URINE NEGATIVE (Neg); LEUKOCYTE ESTERASE ,URINE NEGATIVE (Neg); NITRITES, URINE NEGATIVE (Neg); OCCULT BLOOD,URINE NEGATIVE (Neg); PH,URINE 6.5 (4.8-8.0); PROTEIN,URINE 100 mg/dl (Neg); UROBILINOGEN,URINE 0.2 E.U/dL (0.2-1.0)
[2019-08-31 08:47] LABS: UA COLLECTION TYPE VOIDED
[2019-08-31 08:48] LABS: BASOPHILS % (AUTO) 0.4 % (0-1); EOSINOPHILS # (AUTO) 0.1 X10'3 (0-0.9); EOSINOPHILS % (AUTO) 1.7 % (0-6); HEMATOCRIT 54.9 % (42.0-52.0); LYMPHOCYTES # (AUTO) 1.6 X10'3 (1.1-4.8); LYMPHOCYTES % (AUTO) 26.2 % (21-51); MEAN CORPUSCULAR HEMOGLOBIN 29.8 PG (27.0-31.0); MEAN CORPUSCULAR HGB CONC 34.1 g/dL (33.0-36.5); MEAN CORPUSCULAR VOLUME 87.6 FL (78-98); MONOCYTES # (AUTO) 0.4 X10'3 (0-0.9); MONOCYTES % (AUTO) 6.8 % (2-12); NEUTROPHILS % (AUTO) 64.9 % (42-75); PLATELET COUNT 187 X10'3 (140-440); RED BLOOD COUNT 6.27 X10'6 (4.70-6.10); RED CELL DISTRIBUTION WIDTH 13.8 % (11.5-14.5); WHITE BLOOD COUNT 6.1 X10'3 (4.5-11.0)
[2019-08-31 08:55] LABS: BACTERIA,URINE NONE SEEN /HPF (Neg); RBC,URINE 0-2 /HPF (0-2); SQUAMOUS EPITHELIAL CELL,UR NONE SEEN /LPF (FEW); WBC,URINE NONE SEEN /HPF (0-4)
[2019-08-31 08:59] LABS: ALANINE AMINOTRANSFERASE 63 U/L (12-78); ALKALINE PHOSPHATASE 59 IU/L (46-116); ANION GAP 13 (8-16); ASPARTATE AMINO TRANSFERASE 40 U/L (10-37); BILIRUBIN,TOTAL 0.7 MG/DL (0.1-1.0); BLOOD UREA NITROGEN 15 MG/DL (7-18); BUN/CREATININE RATIO 19.7 (5.4-32.0); CALCIUM 9.2 MG/DL (8.5-10.1); CHLORIDE 102 MMOL/L (99-107); CHOL/HDL RATIO 11.1 (0.00-4.99); CHOLESTEROL 211 MG/DL (0-200); CREATININE 0.76 MG/DL (0.60-1.10); GLUCOSE 138 MG/DL (70-104); HDL CHOLESTEROL 19 MG/DL (35-60); LDL CHOLESTEROL 78 MG/DL (50-100); SODIUM 139 MMOL/L (135-145); TOTAL CARBON DIOXIDE 24.2 MMOL/L (24-32); TOTAL PROTEIN 8.1 G/DL (6.4-8.2); TRIGLYCERIDES 883 MG/DL (20-135); eGFR > 90 ML/MIN
[2019-08-31 09:05] LABS: POTASSIUM 3.8 MMOL/L (3.5-5.1)
[2019-08-31 09:07] LABS: HEMOGLOBIN 18.7 g/dl (14.0-17.9)
[2019-09-02 11:54] LABS: TESTOSTERONE, FREE, DIRECT 19.2 pg/mL (6.6-18.1)
== END 2019-08-31 23:59 | disposition home or self-care (01) ==
LOC: LAB 07:31
PROVIDERS: ATTEND Family Medicine
DX: E11.9 Type 2 diabetes mellitus without complications (principal); E03.9 Hypothyroidism, unspecified; E78.5 Hyperlipidemia, unspecified; I10 Essential (primary) hypertension; Z87.891 Personal history of nicotine dependence
CPT/HCPCS: 36415; 80053; 80061; 81001; 82043; 84402; 84439; 84443; 85025

== ENCOUNTER 2019-09-07 07:15 | Day surgery (SDC) | payer OTHER ==
[~2019-09-07] VITALS: Ht 168.9 cm; Wt 120.9 kg
[2019-09-07 07:25] VITALS: BP 123/82
[2019-09-07] MEDS ORDERED: GLYB5TAB7 PO (07:35)
[2019-09-07] MEDS ORDERED: TEST200V10 IM (07:36)
[2019-09-07] MEDS ORDERED: EMPA10TA PO (07:37)
[2019-09-07] MEDS ORDERED: ZOLP10TA PO (07:37)
[2019-09-07] MEDS ORDERED: INSU100V9 SQ (07:38)
[2019-09-07] MEDS ORDERED: CYCL-394 PO (07:39)
[2019-09-07] MEDS ORDERED: ROSU5TAB PO (07:39)
[2019-09-07] MEDS ORDERED: fentaNYL/PF 50MCG/1 ML 2ML syringe ONE (08:16)
[2019-09-07] MEDS ORDERED: MIDAZolam 5mg/5ml vial ONE ×2 (08:16)
[2019-09-07 10:00] VITALS: BP 141/82
[2019-09-07 10:10] VITALS: BP 150/79
[2019-09-07 10:20] VITALS: BP 134/86
[2019-09-07 10:30] VITALS: BP 139/89
== END 2019-09-07 10:33 | disposition home or self-care (01) ==
LOC: GI LAB 07:15
PROVIDERS: ATTEND Internal Medicine Gastroenterology
DX: Z12.11 Encounter for screening for malignant neoplasm of colon (principal); D12.3 Benign neoplasm of transverse colon; K63.5 Polyp of colon; Z86.010 Personal history of colon polyps
CPT/HCPCS: 45380; 45385; 99152; 99153; C1773; J2250; J3010; J7040; A4620

== ENCOUNTER 2019-10-18 09:04 | Emergency (ER) | payer OTHER ==
[~2019-10-18] VITALS: Ht 170.2 cm; Wt 110.0 kg
[~2019-10-18 09:04] MED LIST changes: -CYCL-1 PO; +CYCL-394 PO; +EMPA10TA PO; -GLYB-97 PO; +GLYB5TAB7 PO; -HYDR-4383 PO; +INSU100V9 SQ; -LANTUS SQ; +ROSU5TAB PO; +TEST200V10 IM; -ZOC40T PO; +ZOLP10TA PO
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
[2019-10-18] MEDS ORDERED: TETanus/Pertussis (Acell)/Diphther VAC/PF (Tdap-Adult) 0.5ml syringe IMVAC ONE (09:25)
[2019-10-18] MEDS ORDERED: ondansetron/PF 4mg/2ml inj IV ONE (09:35)
[2019-10-18] MEDS ORDERED: morphine 4 MG/ML inj SYRINge IV ONE (09:35)
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
[2019-10-18] MEDS ORDERED: CefTRIAXone/D5W-Rocephin 1gm 50 ML IV ONE (10:10)
[2019-10-18] MEDS ORDERED: HYDR-4383 PO (10:55)
[2019-10-18] MEDS ORDERED: CEPH-572 PO (10:55)
[2019-10-18 11:42] VITALS: BP 149/75
== END 2019-10-18 13:38 | disposition home or self-care (01) ==
LOC: ER 09:05
DX: S41.001A Unspecified open wound of right shoulder, initial encounter (principal); S21.101A Unspecified open wound of right front wall of thorax without penetration into thoracic cavity, initial encounter; E78.00 Pure hypercholesterolemia, unspecified; E11.9 Type 2 diabetes mellitus without complications; I25.10 Atherosclerotic heart disease of native coronary artery without angina pectoris; Z88.9 Allergy status to unspecified drugs, medicaments and biological substances; Z88.1 Allergy status to other antibiotic agents; Z79.899 Other long term (current) drug therapy; Z79.82 Long term (current) use of aspirin; Z79.84 Long term (current) use of oral hypoglycemic drugs; Z98.61 Coronary angioplasty status; Z98.890 Other specified postprocedural states
CPT/HCPCS: 29125; 71045; 73020; 73120; 90471; 90715; 93005; 96365; 96375; 99283; J0696; J2270; J2405; 96366; 99284

== ENCOUNTER 2019-12-06 08:12 | Outpatient (CLI) | payer OTHER ==
[~2019-12-06 08:12] MED LIST changes: -CETI-102 PO; +CETI-90 PO; +HYDR-4383 PO
[2019-12-06 08:57] LABS: BASOPHILS % (AUTO) 0.4 % (0-1); EOSINOPHILS # (AUTO) 0.1 X10'3 (0-0.9); HEMOGLOBIN 17.9 g/dl (14.0-17.9); LYMPHOCYTES # (AUTO) 1.4 X10'3 (1.1-4.8); LYMPHOCYTES % (AUTO) 23.3 % (21-51); MEAN CORPUSCULAR HEMOGLOBIN 29.8 PG (27.0-31.0); MEAN CORPUSCULAR HGB CONC 34.4 g/dL (33.0-36.5); MEAN CORPUSCULAR VOLUME 86.6 FL (78-98); MEAN PLATELET VOLUME 8.5 FL (7.4-10.4); MONOCYTES # (AUTO) 0.5 X10'3 (0-0.9); NEUTROPHILS # (AUTO) 4.1 X10'3 (1.8-7.7); NEUTROPHILS % (AUTO) 67.3 % (42-75); PLATELET COUNT 179 X10'3 (140-440); RED BLOOD COUNT 6.01 X10'6 (4.70-6.10); RED CELL DISTRIBUTION WIDTH 14.6 % (11.5-14.5); WHITE BLOOD COUNT 6.1 X10'3 (4.5-11.0)
[2019-12-06 09:37] LABS: HEMOGLOBIN A1C 6.8 % (4.5-6.2)
[2019-12-06 09:48] LABS: ALANINE AMINOTRANSFERASE 61 U/L (12-78); ALBUMIN 3.9 G/DL (3.4-5.0); ALBUMIN/GLOBULIN RATIO 1.1 (1.1-1.5); ALKALINE PHOSPHATASE 56 IU/L (46-116); ANION GAP 9 (8-16); ASPARTATE AMINO TRANSFERASE 37 U/L (10-37); BILIRUBIN,TOTAL 0.5 MG/DL (0.1-1.0); BLOOD UREA NITROGEN 17 MG/DL (7-18); BUN/CREATININE RATIO 23.6 (5.4-32.0); CALCIUM 8.9 MG/DL (8.5-10.1); CHLORIDE 107 MMOL/L (99-107); CHOL/HDL RATIO 9.5 (0.00-4.99); CHOLESTEROL 180 MG/DL (0-200); CREATININE 0.72 MG/DL (0.60-1.10); GLUCOSE 143 MG/DL (70-104); HDL CHOLESTEROL 19 MG/DL (35-60); LDL CHOLESTEROL 86 MG/DL (50-100); SODIUM 141 MMOL/L (135-145); TOTAL CARBON DIOXIDE 25.4 MMOL/L (24-32); TOTAL PROTEIN 7.6 G/DL (6.4-8.2); TRIGLYCERIDES 582 MG/DL (20-135); eGFR > 90 ML/MIN
[2019-12-07 08:10] LABS: MICROALB/CRT, RATIO 444 mg/g creat (0-29)
== END 2019-12-06 23:59 | disposition home or self-care (01) ==
LOC: LAB 08:12
PROVIDERS: ATTEND Family Medicine
DX: Z00.00 Encounter for general adult medical examination without abnormal findings (principal); E11.9 Type 2 diabetes mellitus without complications; E03.9 Hypothyroidism, unspecified; E78.5 Hyperlipidemia, unspecified; I10 Essential (primary) hypertension
CPT/HCPCS: 36415; 80053; 80061; 82043; 82570; 83036; 84402; 84403; 84439; 84443; 85025

== ENCOUNTER 2020-02-15 10:27 | Emergency (ER) | payer OTHER ==
[~2020-02-15] VITALS: Ht 170.2 cm; Wt 150.0 kg
[2020-02-15] MEDS ORDERED: normal saline 1000ML IV soln IVB ONE (12:15)
[2020-02-15 12:16] LABS: BASOPHILS % (AUTO) 0.2 % (0-1); EOSINOPHILS % (AUTO) 0.1 % (0-6); HEMATOCRIT 51.6 % (42.0-52.0); HEMOGLOBIN 17.3 g/dl (14.0-17.9); LYMPHOCYTES # (AUTO) 0.7 X10'3 (1.1-4.8); MEAN CORPUSCULAR HEMOGLOBIN 29.4 PG (27.0-31.0); MEAN CORPUSCULAR HGB CONC 33.5 g/dL (33.0-36.5); MEAN CORPUSCULAR VOLUME 87.7 FL (78-98); MEAN PLATELET VOLUME 8.4 FL (7.4-10.4); MONOCYTES # (AUTO) 0.6 X10'3 (0-0.9); MONOCYTES % (AUTO) 7.3 % (2-12); NEUTROPHILS # (AUTO) 6.6 X10'3 (1.8-7.7); NEUTROPHILS % (AUTO) 83.4 % (42-75); PLATELET COUNT 134 X10'3 (140-440); RED BLOOD COUNT 5.89 X10'6 (4.70-6.10); RED CELL DISTRIBUTION WIDTH 15.2 % (11.5-14.5); WHITE BLOOD COUNT 7.9 X10'3 (4.5-11.0)
[2020-02-15] MEDS ORDERED: ketorolac tromethamine 15mg/ml inj. IV ONE (12:20)
[2020-02-15 12:26] LABS: PARTIAL THROMBOPLASTIN TIME 29 SECONDS (22-32)
[2020-02-15 12:27] LABS: ALANINE AMINOTRANSFERASE 50 U/L (12-78); ALBUMIN 3.7 G/DL (3.4-5.0); ALKALINE PHOSPHATASE 53 IU/L (46-116); ANION GAP 8 (8-16); ASPARTATE AMINO TRANSFERASE 26 U/L (10-37); BILIRUBIN,TOTAL 0.9 MG/DL (0.1-1.0); BLOOD UREA NITROGEN 14 MG/DL (7-18); BUN/CREATININE RATIO 16.5 (5.4-32.0); CALCIUM 8.7 MG/DL (8.5-10.1); CHLORIDE 102 MMOL/L (99-107); CREATININE 0.85 MG/DL (0.60-1.10); GLUCOSE 108 MG/DL (70-104); POTASSIUM 3.5 MMOL/L (3.5-5.1); SODIUM 136 MMOL/L (135-145); TOTAL CARBON DIOXIDE 26.4 MMOL/L (24-32); TOTAL PROTEIN 7.3 G/DL (6.4-8.2); eGFR > 90 ML/MIN
[2020-02-15 12:55] LABS: CLARITY,URINE CLEAR (Clear); COLOR,URINE YELLOW (Yellow); GLUCOSE, URINE >=1000 mg/dl (Neg); KETONES,URINE TRACE mg/dl (Neg); LEUKOCYTE ESTERASE ,URINE NEGATIVE (Neg); NITRITES, URINE NEGATIVE (Neg); OCCULT BLOOD,URINE NEGATIVE (Neg); PROTEIN,URINE 100 mg/dl (Neg)
[2020-02-15 12:58] LABS: UA COLLECTION TYPE VOIDED
[2020-02-15 13:06] LABS: BACTERIA,URINE NONE SEEN /HPF (Neg); RBC,URINE NONE SEEN /HPF (0-2)
[2020-02-15 13:07] LABS: MUCUS STRANDS NONE SEEN /LPF (Neg); SQUAMOUS EPITHELIAL CELL,UR FEW /LPF (FEW); WBC,URINE 0-4 /HPF (0-4)
[2020-02-15] MEDS ORDERED: AZIT250T83 PO (13:35)
[2020-02-15 14:11] VITALS: BP 168/89
--- NOTE | 2020-02-18 12:47 | NUR ---
Patient reports feeling better. He reports diarrhea. On erythromycin. Cough on and off. No fever, SOB, body aches. Admits to congestion, rhinorrhea, and itchey watery eyes. Patients COVID swab is not able to be ran. Given he is feeling better symptoms more consistant with allergies he can decisde weather he wants to retest. He choose to not retest at this time. Dr. Ballesteros in agreement with POC>
== END 2020-02-15 14:14 | disposition home or self-care (01) ==
LOC: ER 10:27
DX: R50.9 Fever, unspecified (principal); Z20.828 Contact with and (suspected) exposure to other viral communicable diseases; B34.9 Viral infection, unspecified; R05 Cough; M79.18 Myalgia, other site; R06.02 Shortness of breath; I25.10 Atherosclerotic heart disease of native coronary artery without angina pectoris; E78.00 Pure hypercholesterolemia, unspecified; E11.9 Type 2 diabetes mellitus without complications; Z98.61 Coronary angioplasty status; Z88.1 Allergy status to other antibiotic agents; Z79.82 Long term (current) use of aspirin; Z79.4 Long term (current) use of insulin; Z79.899 Other long term (current) drug therapy
CPT/HCPCS: 36415; 71045; 80053; 81001; 83605; 83735; 84145; 85025; 85610; 85730; 87040; 87502; 87503; 93005; 96374; 99285; J1885; J7030; 87635

== ENCOUNTER 2020-03-16 07:51 | Outpatient (CLI) | payer OTHER ==
[2020-03-16 08:51] LABS: CLARITY,URINE CLEAR (Clear); COLOR,URINE YELLOW (Yellow); GLUCOSE, URINE >=1000 mg/dl (Neg); KETONES,URINE NEGATIVE (Neg); LEUKOCYTE ESTERASE ,URINE NEGATIVE (Neg); NITRITES, URINE NEGATIVE (Neg); OCCULT BLOOD,URINE TRACE-INTACT (Neg); PH,URINE 5.5 (4.8-8.0); PROTEIN,URINE 100 mg/dl (Neg); UROBILINOGEN,URINE 0.2 E.U/dL (0.2-1.0)
[2020-03-16 08:52] LABS: UA COLLECTION TYPE CLN CATCH MIDSTREAM
[2020-03-16 08:53] LABS: BASOPHILS # (AUTO) 0.1 X10'3 (0-0.2); BASOPHILS % (AUTO) 0.7 % (0-1); EOSINOPHILS # (AUTO) 0.1 X10'3 (0-0.9); EOSINOPHILS % (AUTO) 1.8 % (0-6); HEMATOCRIT 55.4 % (42.0-52.0); LYMPHOCYTES # (AUTO) 1.9 X10'3 (1.1-4.8); LYMPHOCYTES % (AUTO) 27.7 % (21-51); MEAN CORPUSCULAR HEMOGLOBIN 29.7 PG (27.0-31.0); MEAN CORPUSCULAR HGB CONC 33.7 g/dL (33.0-36.5); MEAN PLATELET VOLUME 8.7 FL (7.4-10.4); MONOCYTES # (AUTO) 0.5 X10'3 (0-0.9); MONOCYTES % (AUTO) 7.4 % (2-12); NEUTROPHILS # (AUTO) 4.4 X10'3 (1.8-7.7); NEUTROPHILS % (AUTO) 62.4 % (42-75); PLATELET COUNT 180 X10'3 (140-440); RED CELL DISTRIBUTION WIDTH 14.7 % (11.5-14.5)
[2020-03-16 08:58] LABS: BACTERIA,URINE FEW /HPF (Neg); RBC,URINE 0-2 /HPF (0-2); SQUAMOUS EPITHELIAL CELL,UR FEW /LPF (FEW); WBC,URINE 0-4 /HPF (0-4)
[2020-03-16 09:01] LABS: HEMOGLOBIN 18.7 g/dl (14.0-17.9)
[2020-03-16 09:18] LABS: GLUCOSE 128 MG/DL (70-104); SODIUM 141 MMOL/L (135-145)
[2020-03-16 09:19] LABS: ALANINE AMINOTRANSFERASE 64 U/L (12-78); ALBUMIN 4.2 G/DL (3.4-5.0); ALBUMIN/GLOBULIN RATIO 1.2 (1.1-1.5); ALKALINE PHOSPHATASE 60 IU/L (46-116); ANION GAP 12 (8-16); ASPARTATE AMINO TRANSFERASE 39 U/L (10-37); BILIRUBIN,TOTAL 0.8 MG/DL (0.1-1.0); BLOOD UREA NITROGEN 13 MG/DL (7-18); BUN/CREATININE RATIO 15.5 (5.4-32.0); CALCIUM 9.2 MG/DL (8.5-10.1); CHLORIDE 105 MMOL/L (99-107); CHOL/HDL RATIO 11.9 (0.00-4.99); CHOLESTEROL 190 MG/DL (0-200); CREATININE 0.84 MG/DL (0.60-1.10); HDL CHOLESTEROL 16 MG/DL (35-60); LDL CHOLESTEROL 56 MG/DL (50-100); POTASSIUM 3.6 MMOL/L (3.5-5.1); TOTAL CARBON DIOXIDE 24.5 MMOL/L (24-32); TOTAL PROTEIN 7.8 G/DL (6.4-8.2); TRIGLYCERIDES 821 MG/DL (20-135); eGFR > 90 ML/MIN
== END 2020-03-16 23:59 | disposition home or self-care (01) ==
LOC: LAB 07:51
PROVIDERS: ATTEND Family Medicine
DX: E11.9 Type 2 diabetes mellitus without complications (principal); I10 Essential (primary) hypertension; E78.5 Hyperlipidemia, unspecified; E03.9 Hypothyroidism, unspecified
CPT/HCPCS: 36415; 80053; 80061; 81001; 82043; 84402; 84439; 84443; 85025

== ENCOUNTER 2020-03-20 14:59 | Outpatient (CLI) | payer OTHER | END 2020-03-20 23:59 | disposition home or self-care (01) | LOC: LAB 14:59 | PROVIDERS: ATTEND Family Medicine | DX: Z00.00 Encounter for general adult medical examination without abnormal findings (principal); Z53.21 Procedure and treatment not carried out due to patient leaving prior to being seen by health care provider ==

== ENCOUNTER 2020-06-08 04:41 | Inpatient (IN) | payer BC, OTHER ==
[~2020-06-08] VITALS: Ht 167.6 cm; Wt 109.1 kg
[~2020-06-08 04:41] MED LIST changes: +MULT-620 PO; -MULT1TAB74 PO
[2020-06-08] MEDS ORDERED: nitroGLYCERIN 0.4mg/hour patch TD ONE (05:25)
[2020-06-08] MEDS ORDERED: aspirin 81mg tab.chew PO ONE (05:25)
[2020-06-08 05:37] LABS: BASOPHILS % (AUTO) 0.3 % (0-1); EOSINOPHILS # (AUTO) 0.1 X10'3 (0-0.9); EOSINOPHILS % (AUTO) 0.8 % (0-6); HEMATOCRIT 53.8 % (42.0-52.0); LYMPHOCYTES # (AUTO) 1.6 X10'3 (1.1-4.8); LYMPHOCYTES % (AUTO) 20.1 % (21-51); MEAN CORPUSCULAR HEMOGLOBIN 31.1 PG (27.0-31.0); MEAN CORPUSCULAR HGB CONC 34.8 g/dL (33.0-36.5); MEAN CORPUSCULAR VOLUME 89.3 FL (78-98); MEAN PLATELET VOLUME 8.7 FL (7.4-10.4); MONOCYTES # (AUTO) 0.6 X10'3 (0-0.9); MONOCYTES % (AUTO) 7.1 % (2-12); NEUTROPHILS # (AUTO) 5.8 X10'3 (1.8-7.7); NEUTROPHILS % (AUTO) 71.7 % (42-75); PLATELET COUNT 173 X10'3 (140-440); RED BLOOD COUNT 6.02 X10'6 (4.70-6.10); RED CELL DISTRIBUTION WIDTH 14.2 % (11.5-14.5); WHITE BLOOD COUNT 8.1 X10'3 (4.5-11.0)
[2020-06-08 05:40] LABS: HEMOGLOBIN 18.7 g/dl (14.0-17.9)
--- NOTE | 2020-06-08 05:41 | NUR ---
HGB 18.7
[2020-06-08] MEDS ORDERED: LACT1CAP73 PO (05:47)
[2020-06-08] MEDS ORDERED: UBID50TA3 PO (05:48)
[2020-06-08 05:54] LABS: ALBUMIN 3.9 G/DL (3.4-5.0); ALKALINE PHOSPHATASE 57 IU/L (46-116); ANION GAP 13 (8-16); BILIRUBIN,TOTAL 0.8 MG/DL (0.1-1.0); BLOOD UREA NITROGEN 17 MG/DL (7-18); BUN/CREATININE RATIO 18.1 (5.4-32.0); CALCIUM 8.8 MG/DL (8.5-10.1); CHLORIDE 102 MMOL/L (99-107); CREATININE 0.94 MG/DL (0.60-1.10); SODIUM 138 MMOL/L (135-145); eGFR 81 ML/MIN
[2020-06-08 05:56] LABS: GLUCOSE 194 MG/DL (70-104)
[2020-06-08 06:06] LABS: ALANINE AMINOTRANSFERASE 58 U/L (12-78); ASPARTATE AMINO TRANSFERASE 40 U/L (10-37)
--- NOTE | 2020-06-08 06:18 | NUR ---
HR 122, NO CP.
--- NOTE | 2020-06-08 06:36 | NUR ---
Assumed care of patient. Patient resting comfortable. Patient on classroom monitor, HR 120's. Patient awaiting hospitalist arrival to discuss admission vs discharge and f/u with own weight checker today.
[2020-06-08] MEDS: normal saline 1000ml 1,000 ML IV SCH ×2 (08:03→20:59)
[2020-06-08] MEDS ORDERED: ondansetron/PF 4mg/2ml inj IV PRN (08:05)
[2020-06-08] MEDS ORDERED: morphine 2 MG/ML inj. syringe IV PRN ×2 (08:05)
[2020-06-08] MEDS ORDERED: acetaminophen 325mg tablet PO PRN (08:05)
[2020-06-08] MEDS ORDERED: magnesium hydroxide 30ml (MOM) UD suspension PO PRN (08:05)
[2020-06-08] MEDS ORDERED: mag hydrox/Alum hydrox/simeth 30ml oral suspension PO PRN (08:05)
[2020-06-08] MEDS ORDERED: iohexol 350MG/ML 100ml bottle IV ONE (08:22)
[2020-06-08] MEDS: MESSAGE TO NURSING PO NR ×2 (08:30→10:00)
[2020-06-08] MEDS ORDERED: metoprolol tartrate 25mg tablet PO ONE (09:30)
[2020-06-08] MEDS ORDERED: insulin Lispro (HumaLOG) vial - multi-dose SQ SCH (10:00)
[2020-06-08] MEDS ORDERED: dextrose 50%-water 50ml dispensing syringe IV PRN ×2 (10:00)
[2020-06-08] MEDS ORDERED: glucagon, human recombinant 1mg kit SUBCUT PRN (10:00)
[2020-06-08] MEDS ORDERED: dextrose ORAL solution 15 GM/59 ML bottle PO PRN ×2 (10:00)
[2020-06-08] MEDS ORDERED: HYDROcodone/acetaminophen 5mg/325mg tablet PO PRN (10:30)
[2020-06-08] MEDS ORDERED: ALPRAZolam 0.5mg tablet PO PRN (10:30)
[2020-06-08 11:00] VITALS: BP 120/52
[2020-06-08 11:01] LABS: HEMOGLOBIN A1C 6.8 % (4.5-6.2)
[2020-06-08] MEDS ORDERED: regadenoson 0.4mg/5ml syringe IV PRN (12:40)
[2020-06-08] MEDS ORDERED: aminophylline 250mg/10ml inj. IV PRN (12:40)
[2020-06-08] MEDS ORDERED: nitroGLYCERIN 0.4mg SUBLingual tab SL PRN (12:40)
[2020-06-08] MEDS ORDERED: metoprolol tartrate 1mg/ml inj IV PRN (12:40)
[2020-06-08 15:00] VITALS: BP 121/65
[2020-06-08 18:00] VITALS: BP 141/81
--- NOTE | 2020-06-08 18:00 | NUR ---
Orientee documentation: I have reviewed and agree with all interventions, assessments performed and documented by Porfirio Sanabria RN.
--- NOTE | 2020-06-08 18:10 | NUR ---
Problems reprioritized. Patient report given, questions answered & plan of care reviewed with Vinicio OLIVA.
--- NOTE | 2020-06-08 18:15 | NUR ---
Problems reprioritized. Patient report given, questions answered & plan of care reviewed with Vinicio OLIVA.
--- NOTE | 2020-06-08 18:30 | NUR ---
Patient in room PCU 3012. I have received report from Tanmay-RN/Porfirio-RN, and had the opportunity to ask questions and assume patient care.
[2020-06-08] MEDS ORDERED: cetirizine 10mg tablet PO SCH (20:00)
[2020-06-08] MEDS ORDERED: INSULIN GLARGINE HUM REC ANLOG 60 UNIT SQ SCH (20:00)
--- NOTE | 2020-06-08 20:07 | NUR ---
PAGER ID: [phone] MESSAGE: Edmundo Leon 64M Rm [id number], admitted for CP, Tropsx3 Negative, going for Carmen in AM. Hx of CAD, HTN, DM controlled, chronic back pain. Request for muscle relaxant. Pt. allergic to Clindamycin. Alexandrea [id number]
[2020-06-08] MEDS: cetirizine 10mg tablet PO SCH (21:00)
[2020-06-08] MEDS: OMEGA-3/DHA/EPA/FISH OIL 1 EACH CAPSULE.DR PO SCH (21:00)
[2020-06-08] MEDS: insulin glargine (Lantus) pen - multi-dose SQ SCH (21:00)
[2020-06-08] MEDS: cyclobenzaprine 10mg tablet PO PRN (21:00)
[2020-06-08] MEDS: aspirin 81mg tablet.DR PO SCH (21:01)
[2020-06-08] MEDS: metoprolol tartrate 25mg tablet PO SCH (21:01)
[2020-06-08] MEDS: traMADol 50MG tablet PO SCH (21:02)
[2020-06-08] MEDS: zolpidem 5mg tablet PO PRN (21:02)
[2020-06-08] MEDS: heparin, porcine 5000 units/ml vial SQ SCH (21:03)
[2020-06-08 22:00] VITALS: BP 136/82
[2020-06-09] VITALS (15 sets, daily range): BP systolic 105–163; BP diastolic 47–89
--- NOTE | 2020-06-09 02:00 | NUR ---
Patient refused the 0200 vitals. Very rude stating that we are not letting him sleep. Will recheck the vitals at 0600. Patient is alert, oriented x4. On his home BIPAP. Not at any distress. No chest pain.
[2020-06-09] MEDS: normal saline 1000ml 1,000 ML IV SCH ×3 (04:03→22:45)
[2020-06-09 05:58] LABS: BASOPHILS % (AUTO) 0.4 % (0-1); EOSINOPHILS # (AUTO) 0.1 X10'3 (0-0.9); EOSINOPHILS % (AUTO) 1.5 % (0-6); HEMATOCRIT 46.6 % (42.0-52.0); LYMPHOCYTES # (AUTO) 1.5 X10'3 (1.1-4.8); LYMPHOCYTES % (AUTO) 23.7 % (21-51); MEAN CORPUSCULAR HEMOGLOBIN 30.4 PG (27.0-31.0); MEAN CORPUSCULAR HGB CONC 34.4 g/dL (33.0-36.5); MEAN CORPUSCULAR VOLUME 88.4 FL (78-98); MEAN PLATELET VOLUME 8.8 FL (7.4-10.4); MONOCYTES # (AUTO) 0.5 X10'3 (0-0.9); MONOCYTES % (AUTO) 7.5 % (2-12); NEUTROPHILS # (AUTO) 4.2 X10'3 (1.8-7.7); NEUTROPHILS % (AUTO) 66.9 % (42-75); PLATELET COUNT 137 X10'3 (140-440); RED BLOOD COUNT 5.27 X10'6 (4.70-6.10); RED CELL DISTRIBUTION WIDTH 13.7 % (11.5-14.5); WHITE BLOOD COUNT 6.2 X10'3 (4.5-11.0)
--- NOTE | 2020-06-09 06:15 | NUR ---
Patient in room PCU 3012. I have received report from Vinicio OLIVA and had the opportunity to ask questions and assume patient care.
--- NOTE | 2020-06-09 06:16 | NUR ---
Problems reprioritized. Patient report given to Tanmay, questions answered & plan of care reviewed with .
[2020-06-09 06:17] LABS: ALBUMIN 3.3 G/DL (3.4-5.0); ANION GAP 11 (8-16); BLOOD UREA NITROGEN 17 MG/DL (7-18); BUN/CREATININE RATIO 22.4 (5.4-32.0); CALCIUM 8.3 MG/DL (8.5-10.1); CHLORIDE 103 MMOL/L (99-107); CREATININE 0.76 MG/DL (0.60-1.10); GLUCOSE 136 MG/DL (70-104); POTASSIUM 3.8 MMOL/L (3.5-5.1); SODIUM 138 MMOL/L (135-145); TOTAL CARBON DIOXIDE 24.1 MMOL/L (24-32); eGFR > 90 ML/MIN
--- NOTE | 2020-06-09 06:17 | NUR ---
Patient in room PCU 3012. I have received report from Vinicio OLIVA and had the opportunity to ask questions and assume patient care.
[2020-06-09] MEDS ORDERED: potassium CL 10mEq/100ml bag 100 ML IV PRN (07:00)
[2020-06-09] MEDS ORDERED: magnesium 4gm in 100ml NS 100 ML IV PRN (07:00)
[2020-06-09] MEDS ORDERED: potassium Cl 20 mEq SR tablet PO PRN (07:00)
[2020-06-09] MEDS ORDERED: magnesium Cl slow-release 64mg tablet PO PRN (07:00)
[2020-06-09] MEDS: cetirizine 10mg tablet PO SCH ×2 (07:51→19:46)
[2020-06-09] MEDS: OMEGA-3/DHA/EPA/FISH OIL 1 EACH CAPSULE.DR PO SCH ×2 (07:52→19:43)
[2020-06-09] MEDS: fenofibrate 145mg tablet PO SCH (07:52)
[2020-06-09] MEDS: atorvastatin 20mg tablet PO SCH (07:52)
[2020-06-09] MEDS: multivitamins, therapeutics tablet PO SCH (07:52)
[2020-06-09] MEDS: lactobacillus rhamnosus 10,000 MMU CELLS/CAPSULE PO SCH (07:53)
[2020-06-09] MEDS: aspirin 81mg tablet.DR PO SCH ×2 (07:54→19:44)
[2020-06-09] MEDS: traMADol 50MG tablet PO SCH ×2 (07:55→19:46)
[2020-06-09] MEDS: potassium Cl 20 mEq SR tablet PO PRN ×2 (07:56→13:12)
[2020-06-09] MEDS: Empagliflozin (Jardiance) 25 MG TABLET PO SCH (08:00)
[2020-06-09] MEDS ORDERED: GLUCOSAMINE HCL 1500 MG PO SCH (08:00)
[2020-06-09] MEDS: UBIDECARENONE 50 MG PO SCH (08:00)
[2020-06-09] MEDS: heparin, porcine 5000 units/ml vial SQ SCH (08:00)
[2020-06-09] MEDS: MESSAGE TO NURSING PO NR (10:49)
[2020-06-09] MEDS: losartan 50mg tablet PO SCH (11:01)
[2020-06-09] MEDS: metoprolol tartrate 25mg tablet PO SCH ×2 (11:01→19:45)
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
[2020-06-09] MEDS ORDERED: LIDOcaine/PRILOcaine 5gm cream TP ONE (14:45)
[2020-06-09] MEDS ORDERED: nitroGLYCERIN-Tridil 50MG/D5W 250 ML IV ONE (15:00)
[2020-06-09] MEDS ORDERED: verapamil 2.5 mg/ml inj IV ONE (15:00)
[2020-06-09] MEDS ORDERED: midazolam 2 mg/2 ml injection ONE (15:00)
[2020-06-09] MEDS ORDERED: iohexol 350MG/ML 100ml bottle IV ONE ×2 (15:01→15:39)
[2020-06-09] MEDS ORDERED: heparin 1,000unit/ml 10ml vial 10 ML ONE (15:01)
[2020-06-09] MEDS ORDERED: iohexol 350 MG/ML 50ML vial IV ONE ×3 (15:01→16:24)
[2020-06-09] MEDS ORDERED: LIDOcaine 1% (10mg/ml)w/preservative injection 20ml MDV ONE (15:01)
[2020-06-09] MEDS ORDERED: fentaNYL/PF 50MCG/1 ML 2ML syringe ONE (15:01)
--- NOTE | 2020-06-09 15:10 | NUR ---
Pt taken down to label press operator for heart cath via wheelchair.
[2020-06-09] MEDS ORDERED: heparin 25,000 UNIT/250ml bag 250 ML IV ONE (15:54)
[2020-06-09] MEDS ORDERED: clopidogrel 300mg tablet ONE (16:39)
[2020-06-09] MEDS ORDERED: proCHLORperazine 10 MG/2 ml inj IV PRN (17:35)
[2020-06-09] MEDS ORDERED: HYDROcodone/acetaminophen 10/325mg tab PO PRN ×2 (17:35)
[2020-06-09] MEDS ORDERED: OXAZEpam 15mg capsule PO PRN (17:35)
[2020-06-09] MEDS ORDERED: CLOP75TA15 PO (17:56)
[2020-06-09] MEDS ORDERED: ROSU40TA PO (17:56)
[2020-06-09] MEDS ORDERED: ASPI-1265 PO (17:56)
--- NOTE | 2020-06-09 18:00 | NUR ---
Orientee documentation: I have reviewed and agree with all interventions, assessments performed and documented by Porfirio Sanabria RN.
--- NOTE | 2020-06-09 18:10 | NUR ---
Problems reprioritized. Patient report given, questions answered & plan of care reviewed with Vinicio OLIVA.
--- NOTE | 2020-06-09 18:21 | NUR ---
Problems reprioritized. Patient report given, questions answered & plan of care reviewed with YAMILET OLIVA.
--- NOTE | 2020-06-09 18:25 | NUR ---
Patient in room PCU 3012. I have received report from Tanmay-HAZEL, and had the opportunity to ask questions and assume patient care.
[2020-06-09] MEDS: zolpidem 5mg tablet PO PRN (19:43)
[2020-06-09] MEDS: cyclobenzaprine 10mg tablet PO PRN (19:44)
[2020-06-09] MEDS: docusate sod 100mg capsule PO SCH (19:44)
[2020-06-09] MEDS: insulin glargine (Lantus) pen - multi-dose SQ SCH (21:00)
[2020-06-10 02:00] VITALS: BP 140/86
[2020-06-10 05:30] LABS: BASOPHILS % (AUTO) 0.4 % (0-1); EOSINOPHILS # (AUTO) 0.1 X10'3 (0-0.9); EOSINOPHILS % (AUTO) 1.4 % (0-6); HEMATOCRIT 46.5 % (42.0-52.0); HEMOGLOBIN 15.9 g/dl (14.0-17.9); LYMPHOCYTES # (AUTO) 1.4 X10'3 (1.1-4.8); LYMPHOCYTES % (AUTO) 27.2 % (21-51); MEAN CORPUSCULAR HEMOGLOBIN 30.3 PG (27.0-31.0); MEAN CORPUSCULAR HGB CONC 34.2 g/dL (33.0-36.5); MEAN CORPUSCULAR VOLUME 88.6 FL (78-98); MEAN PLATELET VOLUME 8.7 FL (7.4-10.4); MONOCYTES # (AUTO) 0.4 X10'3 (0-0.9); MONOCYTES % (AUTO) 8.7 % (2-12); NEUTROPHILS # (AUTO) 3.1 X10'3 (1.8-7.7); NEUTROPHILS % (AUTO) 62.3 % (42-75); PLATELET COUNT 129 X10'3 (140-440); RED BLOOD COUNT 5.25 X10'6 (4.70-6.10); RED CELL DISTRIBUTION WIDTH 13.9 % (11.5-14.5)
[2020-06-10 05:51] LABS: ALANINE AMINOTRANSFERASE 50 U/L (12-78); ALBUMIN 3.3 G/DL (3.4-5.0); ALBUMIN/GLOBULIN RATIO 1.1 (1.1-1.5); ALKALINE PHOSPHATASE 36 IU/L (46-116); ANION GAP 10 (8-16); ASPARTATE AMINO TRANSFERASE 31 U/L (10-37); BILIRUBIN,TOTAL 0.8 MG/DL (0.1-1.0); BLOOD UREA NITROGEN 14 MG/DL (7-18); BUN/CREATININE RATIO 20.3 (5.4-32.0); CALCIUM 8.4 MG/DL (8.5-10.1); CHLORIDE 104 MMOL/L (99-107); CREATININE 0.69 MG/DL (0.60-1.10); GLUCOSE 144 MG/DL (70-104); POTASSIUM 3.8 MMOL/L (3.5-5.1); SODIUM 137 MMOL/L (135-145); TOTAL CARBON DIOXIDE 22.9 MMOL/L (24-32); TOTAL PROTEIN 6.4 G/DL (6.4-8.2); eGFR > 90 ML/MIN
[2020-06-10 06:00] VITALS: BP 134/77
--- NOTE | 2020-06-10 06:20 | NUR ---
Patient in room PCU 3012. I have received report from HAZEL Mooney and had the opportunity to ask questions and assume patient care.
--- NOTE | 2020-06-10 06:26 | NUR ---
Problems reprioritized. Patient report given to Lucinda, questions answered & plan of care reviewed with .
[2020-06-10] MEDS: metoprolol tartrate 25mg tablet PO SCH (07:59)
[2020-06-10] MEDS: losartan 50mg tablet PO SCH (08:00)
[2020-06-10] MEDS ORDERED: clopidogrel 75mg tablet PO SCH (08:00)
[2020-06-10] MEDS: OMEGA-3/DHA/EPA/FISH OIL 1 EACH CAPSULE.DR PO SCH (08:00)
[2020-06-10] MEDS: Empagliflozin (Jardiance) 25 MG TABLET PO SCH (08:00)
[2020-06-10] MEDS: UBIDECARENONE 50 MG PO SCH (08:00)
[2020-06-10] MEDS: lactobacillus rhamnosus 10,000 MMU CELLS/CAPSULE PO SCH (08:01)
[2020-06-10] MEDS: atorvastatin 20mg tablet PO SCH (08:01)
[2020-06-10] MEDS: aspirin 81mg tablet.DR PO SCH (08:01)
[2020-06-10] MEDS: docusate sod 100mg capsule PO SCH (08:01)
[2020-06-10] MEDS: multivitamins, therapeutics tablet PO SCH (08:01)
[2020-06-10] MEDS: fenofibrate 145mg tablet PO SCH (08:01)
[2020-06-10] MEDS: traMADol 50MG tablet PO SCH (08:02)
[2020-06-10] MEDS: cetirizine 10mg tablet PO SCH (08:02)
[2020-06-10 11:00] VITALS: BP 140/80
[2020-06-10] MEDS ORDERED: METO25TA6 PO (11:47)
--- NOTE | 2020-06-10 12:50 | NUR ---
Stable for discharge per MD orders. All discharge instructions reviewed with patient and all questions answered. New perscriptions were e-scripted to [facility]. PIV discontinued with cannula intact. faculty head discontinued. Belongings collected and sent with patient. Patient ambulated to [facility] alongside RN. Patient Armbands cut off at time of discharge.
[2020-06-18] MEDS ORDERED: TESTOSTERONE CYPIONATE 200 MG/ML VIAL IM SCH (08:00)
== END 2020-06-10 12:57 | disposition home or self-care (01) | DRG 247 ==
LOC: ER 04:41 → EEVIPCON 04:41 → ED HOLD 08:03 → PCU 3S 10:02
PROVIDERS: ADMIT Family Medicine; ATTEND Family Medicine
PROC: 5A09357 Assistance with Respiratory Ventilation, Less than 24 Consecutive Hours, Continuous Positive Airway Pressure (ICD-10-PCS; 2020-06-08)
PROC: B32T1ZZ Computerized Tomography (CT Scan) of Left Pulmonary Artery using Low Osmolar Contrast (ICD-10-PCS; 2020-06-08)
PROC: B3201ZZ Computerized Tomography (CT Scan) of Thoracic Aorta using Low Osmolar Contrast (ICD-10-PCS; 2020-06-08)
PROC: B32S1ZZ Computerized Tomography (CT Scan) of Right Pulmonary Artery using Low Osmolar Contrast (ICD-10-PCS; 2020-06-08)
PROC: 4A023N7 Measurement of Cardiac Sampling and Pressure, Left Heart, Percutaneous Approach (ICD-10-PCS; principal; 2020-06-09)
PROC: 027135Z Dilation of Coronary Artery, Two Arteries with Two Drug-eluting Intraluminal Devices, Percutaneous Approach (ICD-10-PCS; 2020-06-09)
PROC: B2111ZZ Fluoroscopy of Multiple Coronary Arteries using Low Osmolar Contrast (ICD-10-PCS; 2020-06-09)
PROC: B2151ZZ Fluoroscopy of Left Heart using Low Osmolar Contrast (ICD-10-PCS; 2020-06-09)
PROC: 4A02XM4 Measurement of Cardiac Total Activity, External Approach (ICD-10-PCS; 2020-06-09)
PROC: 3E073KZ Introduction of Other Diagnostic Substance into Coronary Artery, Percutaneous Approach (ICD-10-PCS; 2020-06-09)
DX: I25.110 Atherosclerotic heart disease of native coronary artery with unstable angina pectoris (principal); E11.9 Type 2 diabetes mellitus without complications; E66.9 Obesity, unspecified; E78.00 Pure hypercholesterolemia, unspecified; E78.5 Hyperlipidemia, unspecified; F41.9 Anxiety disorder, unspecified; G47.33 Obstructive sleep apnea (adult) (pediatric); I10 Essential (primary) hypertension; M19.90 Unspecified osteoarthritis, unspecified site; Z95.5 Presence of coronary angioplasty implant and graft; Z68.38 Body mass index [BMI] 38.0-38.9, adult; Z88.1 Allergy status to other antibiotic agents; Z79.899 Other long term (current) drug therapy; Z79.4 Long term (current) use of insulin
CPT/HCPCS: 93306; 93458; 99285; C9600; 36415; 71046; 71275; 78452; 80048; 80053; 82948; 83036; 83735; 83880; 84484; 85025; 85347; 87081; 93005; 93017; 99152; 99153; A4620; A5120; A6258; A9500; C1725; C1751; C1769; C1874; C1894; G0378; J1644; J1815; J2001; J2250; J2785; J3010; J3490; J7030; Q9967

== ENCOUNTER 2020-07-05 06:46 | Outpatient (CLI) | payer BC ==
[~2020-07-05 06:46] MED LIST changes: -ALPR0.5T8 PO; +ASPI-1265 PO; -ASPI-611 PO; +CLOP75TA15 PO; +LACT1CAP73 PO; +METO25TA6 PO; +ROSU40TA PO; -ROSU5TAB PO; +UBID50TA3 PO
== END 2020-07-05 23:59 | disposition home or self-care (01) ==
LOC: LAB 06:46
PROVIDERS: ATTEND Family Medicine
DX: E29.1 Testicular hypofunction (principal)
CPT/HCPCS: 36415; 84402; 84403

== ENCOUNTER 2020-09-11 07:29 | Outpatient (CLI) | payer BC ==
[~2020-09-11 07:29] MED LIST changes: -ASPI-1265 PO
== END 2020-09-11 23:59 | disposition home or self-care (01) ==
LOC: RAD 07:29
PROVIDERS: ATTEND Family Medicine
DX: M16.0 Bilateral primary osteoarthritis of hip (principal); M25.751 Osteophyte, right hip; M46.1 Sacroiliitis, not elsewhere classified
CPT/HCPCS: 73502

== ENCOUNTER 2020-09-20 08:14 | Outpatient (CLI) | payer BC | END 2020-09-20 23:59 | disposition home or self-care (01) | LOC: RAD 08:14 | PROVIDERS: ATTEND Family Medicine | DX: M76.62 Achilles tendinitis, left leg (principal) | CPT/HCPCS: 73718 ==

== ENCOUNTER 2020-10-10 07:24 | Outpatient (CLI) | payer BC ==
[2020-10-10 08:20] LABS: CLARITY,URINE CLEAR (Clear); COLOR,URINE YELLOW (Yellow); GLUCOSE, URINE >=1000 mg/dl (Neg); KETONES,URINE TRACE mg/dl (Neg); LEUKOCYTE ESTERASE ,URINE NEGATIVE (Neg); NITRITES, URINE NEGATIVE (Neg); OCCULT BLOOD,URINE NEGATIVE (Neg); PROTEIN,URINE 100 mg/dl (Neg)
[2020-10-10 08:21] LABS: BASOPHILS % (AUTO) 0.3 % (0-1); EOSINOPHILS # (AUTO) 0.2 X10'3 (0-0.9); EOSINOPHILS % (AUTO) 1.1 % (0-6); HEMATOCRIT 47.6 % (42.0-52.0); HEMOGLOBIN 16.2 g/dl (14.0-17.9); LYMPHOCYTES # (AUTO) 1.4 X10'3 (1.1-4.8); LYMPHOCYTES % (AUTO) 9.4 % (21-51); MEAN CORPUSCULAR HEMOGLOBIN 29.5 PG (27.0-31.0); MEAN CORPUSCULAR HGB CONC 33.9 g/dL (33.0-36.5); MEAN PLATELET VOLUME 8.5 FL (7.4-10.4); MONOCYTES # (AUTO) 1.3 X10'3 (0-0.9); MONOCYTES % (AUTO) 8.7 % (2-12); NEUTROPHILS # (AUTO) 11.6 X10'3 (1.8-7.7); NEUTROPHILS % (AUTO) 80.5 % (42-75); PLATELET COUNT 183 X10'3 (140-440); RED BLOOD COUNT 5.48 X10'6 (4.70-6.10); WHITE BLOOD COUNT 14.4 X10'3 (4.5-11.0)
[2020-10-10 08:27] LABS: BACTERIA,URINE FEW /HPF (Neg); MUCUS STRANDS MODERATE /LPF (Neg); SQUAMOUS EPITHELIAL CELL,UR FEW /LPF (FEW); UA COLLECTION TYPE NON-SPECIFIED
[2020-10-10 08:28] LABS: RBC,URINE 0-2 /HPF (0-2); WBC,URINE 0-4 /HPF (0-4)
[2020-10-10 08:42] LABS: ALANINE AMINOTRANSFERASE 36 U/L (12-78); ALBUMIN 3.6 G/DL (3.4-5.0); ALBUMIN/GLOBULIN RATIO 0.9 (1.1-1.5); ALKALINE PHOSPHATASE 61 IU/L (46-116); ANION GAP 12 (8-16); ASPARTATE AMINO TRANSFERASE 23 U/L (10-37); BILIRUBIN,TOTAL 0.7 MG/DL (0.1-1.0); BLOOD UREA NITROGEN 19 MG/DL (7-18); BUN/CREATININE RATIO 23.5 (5.4-32.0); CHLORIDE 105 MMOL/L (99-107); CHOL/HDL RATIO 8.3 (0.00-4.99); CHOLESTEROL 150 MG/DL (0-200); CREATININE 0.81 MG/DL (0.60-1.10); GLUCOSE 95 MG/DL (70-104); HDL CHOLESTEROL 18 MG/DL (35-60); LDL CHOLESTEROL 98 MG/DL (50-100); POTASSIUM 3.6 MMOL/L (3.5-5.1); SODIUM 140 MMOL/L (135-145); TOTAL CARBON DIOXIDE 23.4 MMOL/L (24-32); TOTAL PROTEIN 7.5 G/DL (6.4-8.2); TRIGLYCERIDES 252 MG/DL (20-135); eGFR > 90 ML/MIN
[2020-10-10 08:55] LABS: HEMOGLOBIN A1C 6.8 % (4.5-6.2)
[2020-10-11 08:17] LABS: MICROALB/CRT, RATIO 237 mg/g creat (0-29)
== END 2020-10-10 23:59 | disposition home or self-care (01) ==
LOC: LAB 07:24
PROVIDERS: ATTEND Family Medicine
DX: Z00.00 Encounter for general adult medical examination without abnormal findings (principal); E11.9 Type 2 diabetes mellitus without complications; E78.5 Hyperlipidemia, unspecified; I10 Essential (primary) hypertension; E03.9 Hypothyroidism, unspecified
CPT/HCPCS: 36415; 80053; 80061; 81001; 82043; 82570; 83036; 84402; 84403; 84439; 84443; 85025

== ENCOUNTER 2020-10-16 11:57 | Outpatient (CLI) | payer BC ==
[2020-10-16 13:55] LABS: BASOPHILS % (AUTO) 0.4 % (0-1); EOSINOPHILS # (AUTO) 0.3 X10'3 (0-0.9); HEMATOCRIT 47.6 % (42.0-52.0); LYMPHOCYTES # (AUTO) 1.8 X10'3 (1.1-4.8); LYMPHOCYTES % (AUTO) 20.4 % (21-51); MEAN CORPUSCULAR HEMOGLOBIN 29.2 PG (27.0-31.0); MEAN CORPUSCULAR HGB CONC 33.6 g/dL (33.0-36.5); MEAN PLATELET VOLUME 8.6 FL (7.4-10.4); MONOCYTES # (AUTO) 0.5 X10'3 (0-0.9); MONOCYTES % (AUTO) 5.7 % (2-12); NEUTROPHILS # (AUTO) 6.1 X10'3 (1.8-7.7); NEUTROPHILS % (AUTO) 70.5 % (42-75); PLATELET COUNT 219 X10'3 (140-440); RED BLOOD COUNT 5.48 X10'6 (4.70-6.10); RED CELL DISTRIBUTION WIDTH 13.9 % (11.5-14.5); WHITE BLOOD COUNT 8.6 X10'3 (4.5-11.0)
== END 2020-10-16 23:59 | disposition home or self-care (01) ==
LOC: LAB 11:57
PROVIDERS: ATTEND Family Medicine
DX: E11.9 Type 2 diabetes mellitus without complications (principal); N40.0 Benign prostatic hyperplasia without lower urinary tract symptoms
CPT/HCPCS: 85025

== ENCOUNTER 2020-11-15 05:31 | Day surgery (SDC) | payer BC ==
[2020-11-08 16:15] LABS: BASOPHILS # (AUTO) 0.1 X10'3 (0-0.2); BASOPHILS % (AUTO) 0.5 % (0-1); EOSINOPHILS # (AUTO) 0.2 X10'3 (0-0.9); EOSINOPHILS % (AUTO) 2.2 % (0-6); LYMPHOCYTES # (AUTO) 1.7 X10'3 (1.1-4.8); LYMPHOCYTES % (AUTO) 16.7 % (21-51); MEAN CORPUSCULAR HGB CONC 34.3 g/dL (33.0-36.5); MEAN CORPUSCULAR VOLUME 87.4 FL (78-98); MEAN PLATELET VOLUME 9.2 FL (7.4-10.4); MONOCYTES # (AUTO) 0.6 X10'3 (0-0.9); NEUTROPHILS # (AUTO) 7.7 X10'3 (1.8-7.7); NEUTROPHILS % (AUTO) 74.6 % (42-75); PRE OP HEMATOCRIT 50.6 % (42.0-52.0); PRE OP HEMOGLOBIN 17.4 g/dL (14.0-17.9); PRE OP PLATELET COUNT 193 X10'3 (140-440); RED BLOOD COUNT 5.79 X10'6 (4.70-6.10); RED CELL DISTRIBUTION WIDTH 14.9 % (11.5-14.5)
[2020-11-08 16:21] LABS: PRE OP PROTIME 10.7 SECONDS (9.0-12.0)
[2020-11-08 16:29] LABS: ALBUMIN 3.9 G/DL (3.4-5.0); ALBUMIN/GLOBULIN RATIO 1.1 (1.1-1.5); ALKALINE PHOSPHATASE 61 IU/L (46-116); BLOOD UREA NITROGEN 17 MG/DL (7-18); BUN/CREATININE RATIO 23.3 (5.4-32.0); CALCIUM 8.9 MG/DL (8.5-10.1); CHLORIDE 104 MMOL/L (99-107); CREATININE 0.73 MG/DL (0.60-1.10); PRE OP ANION GAP 13 (8-16); PRE OP BILIRUB, TOTAL 0.6 MG/DL (0.0-1.0); PRE OP SODIUM 139 MMOL/L (135-145); TOTAL PROTEIN 7.6 G/DL (6.4-8.2); eGFR > 90 ML/MIN
[2020-11-08 16:41] LABS: PRE OP ALT 43 U/L (30-65)
[2020-11-08 16:55] LABS: PRE OP AST 33 U/L (10-37)
[2020-11-08 16:56] LABS: PRE OP GLUCOSE 190 MG/DL (70-104); PRE OP POTASSIUM 3.6 MMOL/L (3.4-5.1)
[2020-11-15] VITALS (13 sets, daily range): BP systolic 105–125; BP diastolic 50–90
[~2020-11-15] VITALS: Ht 170.2 cm; Wt 119.0 kg
[~2020-11-15 05:31] MED LIST changes: +ALPR0.5T8 PO; +ASPI-611 PO; +DOCUMENT DATE & TIME OF BETA-BLOCKER PO ONE; -EMPA10TA PO; +EMPA25TA PO; -FENO135C PO; +FENO145T25 PO; +FLUT16SP20 BOTHNARES; +GABA300C PO; +MELO-102 PO; +NITR0.4T48 SL; +ROSU40TA22 PO; +UBID100C16 PO; -UBID50TA3 PO; +ceFAZolin inj. 3,000 MG in normal saline 100ml IV soln 100 ML IV ONE; +famotidine 20mg tablet PO ONE; +ringers solution, lacted 1,000 ML IV SCH; +scopolamine 1.5mg patch.TD72 TD ONE
[2020-11-15] MEDS ORDERED: ceFAZolin 1000mg inj ONE (06:49)
[2020-11-15] MEDS ORDERED: fentaNYL/PF 50MCG/1 ML 2ML syringe ONE (07:19)
[2020-11-15] MEDS ORDERED: midazolam 2 mg/2 ml injection ONE (07:19)
[2020-11-15] MEDS ORDERED: INSULIN R 100 UNIT in NS 100ML (1 UNIT/1 ML) BAG IV ONE (07:32)
[2020-11-15] MEDS ORDERED: sevoflurane 250ml liquid IH ONE (07:32)
[2020-11-15] MEDS ORDERED: glycopyrrolate 0.2mg/ml inj ONE (07:32)
[2020-11-15] MEDS ORDERED: neostigmine methylsulfate 1 MG/ML 10ml vial ONE (07:32)
[2020-11-15] MEDS ORDERED: Thrombin (Bovine) 5,000 unit vial TP ONE (08:14)
[2020-11-15] MEDS ORDERED: calcium chloride 100 MG/1 ML inj IV ONE (08:30)
[2020-11-15] MEDS ORDERED: ringers solution, lacted 1,000 ML IV SCH (08:55)
[2020-11-15] MEDS ORDERED: proCHLORperazine 10 MG/2 ml inj IV PRN (08:55)
[2020-11-15] MEDS ORDERED: morphine 4 MG/ML inj SYRINge IV PRN (08:55)
[2020-11-15] MEDS ORDERED: ondansetron/PF 4mg/2ml inj IV PRN (08:55)
[2020-11-15] MEDS ORDERED: morphine 2 MG/ML inj. syringe IV PRN (08:55)
[2020-11-15] MEDS ORDERED: meperidine/PF 25mg/ml syringe IV PRN ×3 (08:55)
[2020-11-15] MEDS ORDERED: dexamethasone sod phosphate 4mg/ml inj. ONE (09:16)
[2020-11-15] MEDS ORDERED: propofol inj 20 ML IV ONE (09:16)
[2020-11-15] MEDS ORDERED: ePHEDrine 50MG/ML INJ. ONE (09:16)
[2020-11-15] MEDS ORDERED: LIDOcaine 1%/PF 5ML 10 MG/ML VIAL ONE (09:16)
[2020-11-15] MEDS ORDERED: rocuronium 10mg/ml inj IV ONE (09:16)
[2020-11-15] MEDS ORDERED: ondansetron/PF 4mg/2ml inj ONE (09:16)
[2020-11-15] MEDS ORDERED: phenylephrine 10mg/ml inj. ONE (09:16)
[2020-11-15] MEDS ORDERED: acetaminophen 1,000mg/100ml IV 100 ML IV ONE (09:28)
--- NOTE | 2020-11-15 09:39 | NUR ---
Received from OR via , accompanied by Anesthesiologist SRAVAN and report given by Anesthesiolgist. BEGINING TO WAKE. ETT REMOVED BY DR HINSON, SPONT DEEP RESP SKIN WARM AND DRY HOB AND FOB ELEVATED, NO CO PAIN, DSG SPLINT DI, TOES WARM PINK GOOD CAP REFILL.
[2020-11-15] MEDS ORDERED: ROPIVAcaine 0.5% (5mg/ml) 30ml vial ONE (10:01)
--- NOTE | 2020-11-15 11:39 | NUR ---
AWAKE VS WNL, NO CO PAIN, DSG DI, TOLERATES LIQUIDS, DISCHARGE INSTRUCTIONS GIVEN TO PT AND UNDERSTOOD. KNOWS HOW TO USE CRUTCHES AND TO BE NON WEIGHT BEARING. HOME WITH .
== END 2020-11-15 11:39 | disposition home or self-care (01) ==
LOC: PAS 05:31
PROVIDERS: ATTEND Orthopaedic Surgery
DX: S86.012A Strain of left Achilles tendon, initial encounter (principal); G89.18 Other acute postprocedural pain; E11.9 Type 2 diabetes mellitus without complications; I10 Essential (primary) hypertension; I25.10 Atherosclerotic heart disease of native coronary artery without angina pectoris; Z95.5 Presence of coronary angioplasty implant and graft; Z88.1 Allergy status to other antibiotic agents; Z98.890 Other specified postprocedural states; Z79.01 Long term (current) use of anticoagulants; Z87.891 Personal history of nicotine dependence; X58.XXXA Exposure to other specified factors, initial encounter; Y93.89 Activity, other specified; Y92.89 Other specified places as the place of occurrence of the external cause; Y99.8 Other external cause status; Z20.828 Contact with and (suspected) exposure to other viral communicable diseases
CPT/HCPCS: 27650; 36415; 64450; 76942; 80053; 82948; 85025; 85610; 85730; 87635; C1713; J0131; J0690; J1100; J2250; J2370; J2405; J2704; J2710; J3010; J7120; A4215; A4618; A6449; A7000; J1815; J2795; J3490

== ENCOUNTER 2021-01-05 09:41 | Outpatient (CLI) | payer BC ==
[~2021-01-05 09:41] MED LIST changes: -DOCUMENT DATE & TIME OF BETA-BLOCKER PO ONE; -ceFAZolin inj. 3,000 MG in normal saline 100ml IV soln 100 ML IV ONE; -famotidine 20mg tablet PO ONE; -ringers solution, lacted 1,000 ML IV SCH; -scopolamine 1.5mg patch.TD72 TD ONE
== END 2021-01-05 23:59 | disposition home or self-care (01) ==
LOC: CARD DIAG 09:41
PROVIDERS: ATTEND Internal Medicine Cardiovascular Disease
DX: I08.0 Rheumatic disorders of both mitral and aortic valves (principal)
CPT/HCPCS: 93306

== ENCOUNTER 2021-01-12 09:44 | Outpatient (CLI) | payer BC ==
[2021-01-12 10:17] LABS: CLARITY,URINE CLEAR (Clear); COLOR,URINE YELLOW (Yellow); GLUCOSE, URINE >=1000 mg/dl (Neg); KETONES,URINE NEGATIVE (Neg); LEUKOCYTE ESTERASE ,URINE NEGATIVE (Neg); NITRITES, URINE NEGATIVE (Neg); OCCULT BLOOD,URINE NEGATIVE (Neg); PROTEIN,URINE 100 mg/dl (Neg); UA COLLECTION TYPE CLN CATCH MIDSTREAM; UROBILINOGEN,URINE 0.2 E.U/dL (0.2-1.0)
[2021-01-12 10:26] LABS: BASOPHILS % (AUTO) 0.3 % (0-1); EOSINOPHILS # (AUTO) 0.2 X10'3 (0-0.9); HEMATOCRIT 52.5 % (42.0-52.0); HEMOGLOBIN 17.3 g/dl (14.0-17.9); LYMPHOCYTES # (AUTO) 1.7 X10'3 (1.1-4.8); LYMPHOCYTES % (AUTO) 17.7 % (21-51); MEAN CORPUSCULAR HEMOGLOBIN 28.6 PG (27.0-31.0); MEAN CORPUSCULAR HGB CONC 32.9 g/dL (33.0-36.5); MEAN PLATELET VOLUME 8.5 FL (7.4-10.4); MONOCYTES # (AUTO) 0.6 X10'3 (0-0.9); MONOCYTES % (AUTO) 6.7 % (2-12); NEUTROPHILS # (AUTO) 6.9 X10'3 (1.8-7.7); NEUTROPHILS % (AUTO) 73.3 % (42-75); PLATELET COUNT 190 X10'3 (140-440); RED BLOOD COUNT 6.04 X10'6 (4.70-6.10); RED CELL DISTRIBUTION WIDTH 15.2 % (11.5-14.5); WHITE BLOOD COUNT 9.4 X10'3 (4.5-11.0)
[2021-01-12 10:31] LABS: BACTERIA,URINE NONE SEEN /HPF (Neg); RBC,URINE NONE SEEN /HPF (0-2); SQUAMOUS EPITHELIAL CELL,UR FEW /LPF (FEW); WBC,URINE 0-4 /HPF (0-4)
[2021-01-12 10:40] LABS: HEMOGLOBIN A1C 6.5 % (4.5-6.2)
[2021-01-12 10:48] LABS: ALANINE AMINOTRANSFERASE 55 U/L (12-78); ALBUMIN/GLOBULIN RATIO 1.1 (1.1-1.5); ALKALINE PHOSPHATASE 58 IU/L (46-116); ANION GAP 11 (8-16); ASPARTATE AMINO TRANSFERASE 40 U/L (10-37); BILIRUBIN,TOTAL 0.6 MG/DL (0.1-1.0); BLOOD UREA NITROGEN 16 MG/DL (7-18); BUN/CREATININE RATIO 20.5 (5.4-32.0); CALCIUM 9.5 MG/DL (8.5-10.1); CHLORIDE 105 MMOL/L (99-107); CHOL/HDL RATIO 9.6 (0.00-4.99); CHOLESTEROL 164 MG/DL (0-200); CREATININE 0.78 MG/DL (0.60-1.10); GLUCOSE 108 MG/DL (70-104); HDL CHOLESTEROL 17 MG/DL (35-60); LDL CHOLESTEROL 85 MG/DL (50-100); SODIUM 141 MMOL/L (135-145); TOTAL CARBON DIOXIDE 24.6 MMOL/L (24-32); TOTAL PROTEIN 7.8 G/DL (6.4-8.2); TRIGLYCERIDES 438 MG/DL (20-135); eGFR > 90 ML/MIN
[2021-01-13 12:40] LABS: MICROALB/CRT, RATIO 437 mg/g creat (0-29)
== END 2021-01-12 23:59 | disposition home or self-care (01) ==
LOC: LAB 09:44
PROVIDERS: ATTEND Family Medicine
DX: Z00.00 Encounter for general adult medical examination without abnormal findings (principal); E11.9 Type 2 diabetes mellitus without complications; I10 Essential (primary) hypertension; E78.5 Hyperlipidemia, unspecified; E03.9 Hypothyroidism, unspecified
CPT/HCPCS: 36415; 80053; 80061; 81001; 82043; 82570; 83036; 84402; 84403; 84439; 84443; 85025

== ENCOUNTER 2021-07-16 16:55 | Emergency (ER) | payer OTHER, BC ==
[~2021-07-16] VITALS: Ht 170.2 cm; Wt 119.5 kg
[~2021-07-16 16:55] MED LIST changes: +LOP25T PO; -METO25TA6 PO; -TEST200V10 IM; +TEST200V33 IM
[2021-07-16] MEDS ORDERED: morphine 10mg/ml inj. IM ONE (18:10)
[2021-07-16] MEDS ORDERED: ondansetron 4mg rapidly disintigrating tab PO ONE (18:10)
[2021-07-16] MEDS ORDERED: HYDROcodone/acetaminophen 10/325mg tab PO ONE (18:10)
[2021-07-16 18:45] VITALS: BP 176/96
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
--- NOTE | 2021-07-16 19:07 | NUR ---
PT TO CT WITH BELKIS RASHEED
--- NOTE | 2021-07-16 19:15 | NUR ---
PT BACK FROM CT
--- NOTE | 2021-07-16 19:20 | NUR ---
pt placed in c spine as ordered by emt
[2021-07-16] MEDS ORDERED: HYDR-3972 PO (20:43)
[2021-09-05] MEDS ORDERED: HYDR-3964 PO (06:36)
[2021-09-05] MEDS ORDERED: CLOP75TA34 PO (06:36)
[2021-09-10] MEDS ORDERED: ROSU40TA PO (13:49)
[2021-09-23] MEDS ORDERED: LEVO500T90 PO ×2 (21:14)
[2021-09-24] MEDS ORDERED: CLOP75TA34 PO (15:13)
[2021-09-24] MEDS ORDERED: FLUT16SP13 BOTHNARES (15:13)
[2021-09-24] MEDS ORDERED: LOP12.5T PO (15:13)
== END 2021-07-16 21:00 | disposition home or self-care (01) ==
LOC: EEVIPCON 16:55 → ER 16:55
DX: S06.0X1A Concussion with loss of consciousness of 30 minutes or less, initial encounter (principal); S63.501A Unspecified sprain of right wrist, initial encounter; S00.83XA Contusion of other part of head, initial encounter; I25.10 Atherosclerotic heart disease of native coronary artery without angina pectoris; E78.00 Pure hypercholesterolemia, unspecified; I10 Essential (primary) hypertension; E11.9 Type 2 diabetes mellitus without complications; G47.30 Sleep apnea, unspecified; Z95.5 Presence of coronary angioplasty implant and graft; Z95.0 Presence of cardiac pacemaker; Z79.899 Other long term (current) drug therapy; Z79.4 Long term (current) use of insulin; Z79.82 Long term (current) use of aspirin; Z88.1 Allergy status to other antibiotic agents; Y04.8XXA Assault by other bodily force, initial encounter; Y93.89 Activity, other specified; Y92.89 Other specified places as the place of occurrence of the external cause; Y99.8 Other external cause status
CPT/HCPCS: 70450; 70486; 72125; 73110; 99285

== ENCOUNTER 2021-07-23 06:45 | Outpatient (CLI) | payer BC ==
[~2021-07-23 06:45] MED LIST changes: +HYDR-3972 PO; +TEST200V10 IM; -TEST200V33 IM
[2021-07-23 07:44] LABS: BASOPHILS % (AUTO) 0.1 % (0-1); EOSINOPHILS # (AUTO) 0.1 X10'3 (0-0.9); EOSINOPHILS % (AUTO) 1.8 % (0-6); HEMATOCRIT 54.2 % (42.0-52.0); LYMPHOCYTES # (AUTO) 1.1 X10'3 (1.1-4.8); LYMPHOCYTES % (AUTO) 16.1 % (21-51); MEAN CORPUSCULAR HEMOGLOBIN 28.4 PG (27.0-31.0); MEAN CORPUSCULAR HGB CONC 33.2 g/dL (33.0-36.5); MEAN CORPUSCULAR VOLUME 85.4 FL (78-98); MEAN PLATELET VOLUME 8.5 FL (7.4-10.4); MONOCYTES # (AUTO) 0.6 X10'3 (0-0.9); MONOCYTES % (AUTO) 8.7 % (2-12); NEUTROPHILS % (AUTO) 73.3 % (42-75); PLATELET COUNT 198 X10'3 (140-440); RED BLOOD COUNT 6.34 X10'6 (4.70-6.10); RED CELL DISTRIBUTION WIDTH 15.8 % (11.5-14.5); WHITE BLOOD COUNT 6.9 X10'3 (4.5-11.0)
[2021-07-23 08:00] LABS: UA COLLECTION TYPE VOIDED
[2021-07-23 08:01] LABS: CLARITY,URINE CLEAR (Clear); COLOR,URINE YELLOW (Yellow)
[2021-07-23 08:03] LABS: GLUCOSE, URINE >=1000 mg/dl (Neg); KETONES,URINE TRACE mg/dl (Neg); PROTEIN,URINE 30 mg/dl (Neg)
[2021-07-23 08:04] LABS: LEUKOCYTE ESTERASE ,URINE NEGATIVE (Neg); NITRITES, URINE NEGATIVE (Neg); OCCULT BLOOD,URINE NEGATIVE (Neg); UROBILINOGEN,URINE 0.2 E.U/dL (0.2-1.0)
[2021-07-23 08:10] LABS: ALANINE AMINOTRANSFERASE 51 U/L (12-78); ALBUMIN 4.1 G/DL (3.4-5.0); ALBUMIN/GLOBULIN RATIO 1.1 (1.1-1.5); ALKALINE PHOSPHATASE 60 IU/L (46-116); ANION GAP 11 (8-16); ASPARTATE AMINO TRANSFERASE 33 U/L (10-37); BILIRUBIN,TOTAL 0.6 MG/DL (0.1-1.0); BLOOD UREA NITROGEN 21 MG/DL (7-18); BUN/CREATININE RATIO 23.6 (5.4-32.0); CALCIUM 9.1 MG/DL (8.5-10.1); CHLORIDE 107 MMOL/L (99-107); CHOL/HDL RATIO 9.7 (0.00-4.99); CHOLESTEROL 185 MG/DL (0-200); CREATININE 0.89 MG/DL (0.60-1.10); GLUCOSE 97 MG/DL (70-104); HDL CHOLESTEROL 19 MG/DL (35-60); LDL CHOLESTEROL 108 MG/DL (50-100); POTASSIUM 3.9 MMOL/L (3.5-5.1); SODIUM 145 MMOL/L (135-145); TOTAL CARBON DIOXIDE 26.9 MMOL/L (24-32); TOTAL PROTEIN 7.7 G/DL (6.4-8.2); TRIGLYCERIDES 309 MG/DL (20-135); eGFR 86 ML/MIN
[2021-07-23 08:15] LABS: HEMOGLOBIN A1C 6.4 % (4.5-6.2)
[2021-07-23 08:24] LABS: WBC,URINE 0-4 /HPF (0-4)
[2021-07-23 08:26] LABS: BACTERIA,URINE NONE SEEN /HPF (Neg); RBC,URINE 0-2 /HPF (0-2); SQUAMOUS EPITHELIAL CELL,UR FEW /LPF (FEW)
[2021-07-24 09:39] LABS: MICROALB/CRT, RATIO 369 mg/g creat (0-29)
[2021-07-28 11:33] LABS: TESTOSTERONE, FREE, DIRECT 8.6 pg/mL (6.6-18.1)
== END 2021-07-23 23:59 | disposition home or self-care (01) ==
LOC: LAB 06:45
PROVIDERS: ATTEND Family Medicine
DX: Z00.00 Encounter for general adult medical examination without abnormal findings (principal); E11.9 Type 2 diabetes mellitus without complications; I10 Essential (primary) hypertension; E78.5 Hyperlipidemia, unspecified; E03.9 Hypothyroidism, unspecified
CPT/HCPCS: 36415; 80053; 80061; 81001; 82043; 82570; 83036; 84402; 84403; 84439; 84443; 85025

== ENCOUNTER → 2021-08-02 | Outpatient (CLI) | payer BC ==
[2021-08-02] VITALS (7 sets, daily range): BP systolic 114–144; BP diastolic 61–82
[~2021-08-02] VITALS: Ht 167.6 cm; Wt 114.8 kg
[~2021-08-02] MED LIST changes: +aminophylline 250mg/10ml inj. IV PRN; +metoprolol tartrate 1mg/ml inj IV PRN; +nitroGLYCERIN 0.4mg SUBLingual tab SL PRN; +regadenoson 0.4mg/5ml syringe IV ONE; +regadenoson 0.4mg/5ml syringe IV PRN
== END | disposition home or self-care (01) ==
LOC: RAD 07:43
PROVIDERS: ATTEND Internal Medicine Cardiovascular Disease
DX: I25.10 Atherosclerotic heart disease of native coronary artery without angina pectoris (principal)
CPT/HCPCS: 78452; 93017; A9500; J2785

== ENCOUNTER → 2021-09-05 | Day surgery (SDC) | payer BC ==
[2021-09-04 08:37] LABS: BASOPHILS % (AUTO) 0.6 % (0-1); EOSINOPHILS # (AUTO) 0.1 X10'3 (0-0.9); EOSINOPHILS % (AUTO) 2.1 % (0-6); HEMATOCRIT 48.6 % (42.0-52.0); HEMOGLOBIN 16.5 g/dl (14.0-17.9); LYMPHOCYTES # (AUTO) 1.3 X10'3 (1.1-4.8); LYMPHOCYTES % (AUTO) 19.1 % (21-51); MEAN CORPUSCULAR HEMOGLOBIN 28.9 PG (27.0-31.0); MEAN CORPUSCULAR HGB CONC 34.1 g/dL (33.0-36.5); MEAN CORPUSCULAR VOLUME 84.7 FL (78-98); MEAN PLATELET VOLUME 8.4 FL (7.4-10.4); MONOCYTES # (AUTO) 0.4 X10'3 (0-0.9); MONOCYTES % (AUTO) 6.6 % (2-12); NEUTROPHILS # (AUTO) 4.9 X10'3 (1.8-7.7); NEUTROPHILS % (AUTO) 71.6 % (42-75); PLATELET COUNT 190 X10'3 (140-440); RED BLOOD COUNT 5.73 X10'6 (4.70-6.10); RED CELL DISTRIBUTION WIDTH 15.2 % (11.5-14.5); WHITE BLOOD COUNT 6.8 X10'3 (4.5-11.0)
[2021-09-04 08:51] LABS: ALBUMIN 3.6 G/DL (3.4-5.0); ANION GAP 11 (8-16); BLOOD UREA NITROGEN 15 MG/DL (7-18); BUN/CREATININE RATIO 15.3 (5.4-32.0); CALCIUM 8.8 MG/DL (8.5-10.1); CHLORIDE 106 MMOL/L (99-107); CREATININE 0.98 MG/DL (0.60-1.10); SODIUM 141 MMOL/L (135-145); TOTAL CARBON DIOXIDE 23.6 MMOL/L (24-32); eGFR 77 ML/MIN
[2021-09-04 08:52] LABS: GLUCOSE 218 MG/DL (70-104); POTASSIUM 4.1 MMOL/L (3.5-5.1)
[2021-09-04 09:02] LABS: PARTIAL THROMBOPLASTIN TIME 28 SECONDS (22-32)
[~2021-09-05] VITALS: Ht 170.2 cm; Wt 116.8 kg
[2021-09-05] VITALS (10 sets, daily range): BP systolic 137–188; BP diastolic 48–90
[~2021-09-05] MED LIST changes: +CLOP75TA34 PO; +FLUT16SP13 BOTHNARES; +HYDR-3964 PO; +HYDROmorphone 1 mg/ml syringe ONE; +LEVO500T90 PO; +LIDOcaine 1% (10mg/ml)w/preservative injection 20ml MDV ONE; +LIDOcaine/PRILOcaine 5gm cream TP ONE; +LOP12.5T PO; +LORazepam 0.5 MG tablet PO PRN; -TEST200V10 IM; +TEST200V33 IM; -aminophylline 250mg/10ml inj. IV PRN; +diphenhydrAMINE 25mg capsule PO PRN; +fentaNYL/PF 50MCG/1 ML 2ML syringe ONE; +heparin 1,000unit/ml 10ml vial 10 ML ONE; +iohexol 350 MG/ML 50ML vial IV ONE; +iohexol 350MG/ML 100ml bottle IV ONE; -metoprolol tartrate 1mg/ml inj IV PRN; +midazolam 1 mg/ML 2ml injection ONE; +morphine 2 MG/ML inj. syringe IV PRN; -nitroGLYCERIN 0.4mg SUBLingual tab SL PRN; +nitroGLYCERIN-Tridil 50MG/D5W 250 ML IV ONE; +normal saline 1,000 ML IV SCH; +normal saline 1000ml 1,000 ML IV SCH; -regadenoson 0.4mg/5ml syringe IV ONE; -regadenoson 0.4mg/5ml syringe IV PRN; +verapamil 2.5 mg/ml inj IV ONE
--- NOTE | 2021-09-05 13:34 | NUR ---
Pt ambulated in [place]. DRSG CD&I, no s/s of bleeding or infection.
== END | disposition home or self-care (01) ==
LOC: SSTAY O 05:54
PROVIDERS: ATTEND Internal Medicine Cardiovascular Disease
DX: R94.39 Abnormal result of other cardiovascular function study (principal); R06.02 Shortness of breath; R53.83 Other fatigue; I25.10 Atherosclerotic heart disease of native coronary artery without angina pectoris; E11.9 Type 2 diabetes mellitus without complications; I10 Essential (primary) hypertension; E78.5 Hyperlipidemia, unspecified; I47.1 Supraventricular tachycardia; G47.33 Obstructive sleep apnea (adult) (pediatric); E66.9 Obesity, unspecified; Z68.38 Body mass index [BMI] 38.0-38.9, adult; Z79.899 Other long term (current) drug therapy; Z79.4 Long term (current) use of insulin; Z79.01 Long term (current) use of anticoagulants; Z79.82 Long term (current) use of aspirin; Z95.5 Presence of coronary angioplasty implant and graft; Z87.891 Personal history of nicotine dependence; Z88.1 Allergy status to other antibiotic agents; Z80.9 Family history of malignant neoplasm, unspecified
CPT/HCPCS: 36415; 76937; 80048; 85025; 85610; 85730; 93005; 93458; 93567; 93880; 93970; 94010; 99152; 99153; C1760; C1769; C1894; J1170; J1644; J2001; J2250; J3010; J7030; Q0163; Q9967; A5120; A6258; J3490

== ENCOUNTER 2021-09-13 08:12 | Inpatient (IN) | payer BC ==
[2021-09-10 14:54] LABS: BASOPHILS % (AUTO) 0.4 % (0-1); EOSINOPHILS # (AUTO) 0.2 X10'3 (0-0.9); EOSINOPHILS % (AUTO) 2.1 % (0-6); LYMPHOCYTES # (AUTO) 1.7 X10'3 (1.1-4.8); MEAN CORPUSCULAR HEMOGLOBIN 28.6 PG (27.0-31.0); MEAN CORPUSCULAR HGB CONC 33.5 g/dL (33.0-36.5); MEAN CORPUSCULAR VOLUME 85.5 FL (78-98); MEAN PLATELET VOLUME 8.6 FL (7.4-10.4); MONOCYTES # (AUTO) 0.6 X10'3 (0-0.9); MONOCYTES % (AUTO) 6.9 % (2-12); NEUTROPHILS # (AUTO) 6.4 X10'3 (1.8-7.7); NEUTROPHILS % (AUTO) 71.6 % (42-75); PRE OP HEMATOCRIT 53.3 % (42.0-52.0); PRE OP HEMOGLOBIN 17.8 g/dL (14.0-17.9); PRE OP PLATELET COUNT 208 X10'3 (140-440); RED BLOOD COUNT 6.24 X10'6 (4.70-6.10); RED CELL DISTRIBUTION WIDTH 15.7 % (11.5-14.5)
[2021-09-10 14:59] LABS: PRE OP INR 1.1 INR; PRE OP PROTIME 10.9 SECONDS (9.0-12.0)
[2021-09-10 15:11] LABS: ALKALINE PHOSPHATASE 55 IU/L (46-116); BLOOD UREA NITROGEN 19 MG/DL (7-18); BUN/CREATININE RATIO 24.7 (5.4-32.0); CALCIUM 9.2 MG/DL (8.5-10.1); CHLORIDE 106 MMOL/L (99-107); CREATININE 0.77 MG/DL (0.60-1.10); PRE OP ALT 39 U/L (30-65); PRE OP ANION GAP 12 (8-16); PRE OP AST 22 U/L (10-37); PRE OP BILIRUB, TOTAL 0.5 MG/DL (0.0-1.0); PRE OP GLUCOSE 126 MG/DL (70-104); PRE OP POTASSIUM 3.8 MMOL/L (3.4-5.1); PRE OP SODIUM 141 MMOL/L (135-145); TOTAL CARBON DIOXIDE 22.7 MMOL/L (24-32); TOTAL PROTEIN 8.2 G/DL (6.4-8.2); eGFR > 90 ML/MIN
[2021-09-10 15:44] LABS: CLARITY,URINE CLEAR (Clear); COLOR,URINE YELLOW (Yellow); UA COLLECTION TYPE VOIDED
[2021-09-10 15:45] LABS: GLUCOSE, URINE >=1000 mg/dl (Neg); KETONES,URINE TRACE mg/dl (Neg); LEUKOCYTE ESTERASE ,URINE NEGATIVE (Neg); NITRITES, URINE NEGATIVE (Neg); OCCULT BLOOD,URINE TRACE-INTACT (Neg); PROTEIN,URINE 100 mg/dl (Neg); UROBILINOGEN,URINE 0.2 E.U/dL (0.2-1.0)
[2021-09-10 15:59] LABS: BACTERIA,URINE NONE SEEN /HPF (Neg); RBC,URINE NONE SEEN /HPF (0-2); SQUAMOUS EPITHELIAL CELL,UR NONE SEEN /LPF (FEW); WBC,URINE 0-4 /HPF (0-4)
[2021-09-10 16:10] LABS: ABG HCO3 22.8 mmol/L (22.0-26.0); ABG PCO2 (T) 36.1 mmHg (35.0-48.0); ABG PO2 (T) 75.7 mmHg (75.0-100.0); ALLEN'S TEST POSITIVE; FCOHb 0.1 % (0.0-3.9); FMetHb 0.1 % (0.0-1.5); FO2Hb 95.8 % (94-97); TOTAL HEMOGLOBIN 18.3 G/dl (14.0-18.0)
[2021-09-13] VITALS (11 sets, daily range): BP systolic 106–142; BP diastolic 54–83
[~2021-09-13] VITALS: Ht 170.2 cm; Wt 113.0 kg
[~2021-09-13 08:12] MED LIST changes: +BUPIVAcaine 0.5% inj/PF 30 ML ONE; -CLOP75TA15 PO; +DOCUMENT DATE & TIME OF BETA-BLOCKER PO ONE; -FLUT16SP13 BOTHNARES; -HYDR-3972 PO; -HYDR-4383 PO; -HYDROmorphone 1 mg/ml syringe ONE; -LEVO500T90 PO; +LIDOcaine 1% (10mg/ml) 2ml vial ONE; -LIDOcaine 1% (10mg/ml)w/preservative injection 20ml MDV ONE; -LIDOcaine/PRILOcaine 5gm cream TP ONE; -LOP12.5T PO; -LORazepam 0.5 MG tablet PO PRN; +LORazepam 2 mg/ml vial IV PRN; +ceFAZolin 1000mg inj ONE; +dextrose 50%-water 50ml dispensing syringe IV PRN; +dextrose ORAL solution 15 GM/59 ML bottle PO PRN; -diphenhydrAMINE 25mg capsule PO PRN; +epiNEPHrine 1 mg/ml inj ONE; +famotidine 20mg tablet PO ONE; -fentaNYL/PF 50MCG/1 ML 2ML syringe ONE; +gabapentin 400mg capsule PO ONE; +glucagon, human recombinant 1mg kit SUBCUT PRN; -heparin 1,000unit/ml 10ml vial 10 ML ONE; +insulin Lispro (HumaLOG) vial - multi-dose SQ SCH; +insulin glargine (Lantus) pen - multi-dose SQ SCH; -iohexol 350 MG/ML 50ML vial IV ONE; -iohexol 350MG/ML 100ml bottle IV ONE; -midazolam 1 mg/ML 2ml injection ONE; -morphine 2 MG/ML inj. syringe IV PRN; +mupirocin 2% nasal ointment 1gm UD NS ONE; -nitroGLYCERIN-Tridil 50MG/D5W 250 ML IV ONE; -normal saline 1,000 ML IV SCH; -normal saline 1000ml 1,000 ML IV SCH; +ringers solution, lacted 1,000 ML IV SCH; -verapamil 2.5 mg/ml inj IV ONE
[2021-09-13] MEDS ORDERED: metoprolol tartrate 12.5mg (1/2 tablet) PO ONE (09:21)
[2021-09-13] MEDS ORDERED: heparin 10,000 units/1 ML INJ ONE (10:30)
[2021-09-13] MEDS ORDERED: calcium chloride 100 MG/1 ML inj IV ONE (10:30)
[2021-09-13] MEDS ORDERED: albumin (human) 25% 100 ML IV solution IV ONE (10:30)
[2021-09-13] MEDS ORDERED: cefazolin/dext.iso 2gm/50ml 50 ML IV ONE (10:30)
[2021-09-13] MEDS ORDERED: NORepinephrine 8 MG in NS 250 ML BAG (32 mcg/ml) IV ONE (10:30)
[2021-09-13] MEDS ORDERED: aminocaproic acid 250 MG/1 ML inj. ONE (10:30)
[2021-09-13] MEDS ORDERED: heparin 1,000 units/ml 10ml inj ONE (10:30)
[2021-09-13] MEDS ORDERED: sodium bicarbonate (8.4%) 1 mEq/ml syringe ONE (10:30)
[2021-09-13] MEDS: Insulin Reg/NS 100units/100mL 100 ML IV SCH (10:31)
[2021-09-13] MEDS ORDERED: VANCOMYCIN 1,500MG in NS 500ml IVPB IV ONE (10:35)
[2021-09-13] MEDS ORDERED: propofol 10mg/ml 20ml vial IV ONE (10:43)
[2021-09-13] MEDS ORDERED: DOPamine/D5W 400mg/250ml bag IV ONE (10:43)
[2021-09-13] MEDS ORDERED: rocuronium 10mg/ml inj IV ONE (10:43)
[2021-09-13] MEDS ORDERED: isoflurane 100ml inhalation liquid IH ONE (10:43)
[2021-09-13] MEDS ORDERED: INSULIN R 100 UNIT in NS 100ML (1 UNIT/1 ML) BAG IV ONE (10:43)
[2021-09-13] MEDS ORDERED: LORazepam 2 mg/ml vial ONE (10:43)
[2021-09-13] MEDS ORDERED: LIDOcaine 1%/PF 5ML 10 MG/ML VIAL ONE (10:43)
[2021-09-13] MEDS ORDERED: SUFENTANIL CITRATE 50 MCG/ML 2ml ampule IV ONE (10:57)
[2021-09-13 11:34] LABS: ABG BASE EXCESS -2.6 mmol/L (-2.0-2.0); ABG HCO3 21.6 mmol/L (22.0-26.0); ABG OXYGEN SATURATION 99.1 % (94-97); ABG PO2 382.4 mmHg (75.0-100.0); CL (ABG) 105 mmol/L (98-110); FCOHb 0.5 % (0.0-3.9); FMetHb 0.3 % (0.0-1.5); FO2Hb 98.3 % (94-97); GLUCOSE (ABG) 127 mg/dl (70-105); IONIZED CA (ABG) 1.15 mmol/L (1.10-1.43); K (ABG) 4.2 mmol/L (3.5-5.0); TOTAL HEMOGLOBIN 16.2 G/dl (14.0-18.0)
[2021-09-13 11:40] LABS: ACT @ 1.70 U 295 SEC (193-297); ACT @ 2.84 U 418 SEC (260-420); BASELINE ACT 152 SEC (101-148)
[2021-09-13] MEDS ORDERED: papaverine 30 mg/ml 2ml inj. IA ONE (12:05)
[2021-09-13] MEDS ORDERED: heparin 10,000 units/1 ML INJ IR ONE (12:07)
[2021-09-13 12:17] LABS: ABG BASE EXCESS VENOUS -4.4 mmol/L (-2.0 - 2.0); ABG PCO2 VENOUS 51.3 mmHg (41.0-54.0); ABG PO2 VENOUS 95.5 mmHg (25.0-35.0); CL (ABG) 104 mmol/L (98-110); FCOHb VENOUS 1.3 %; FHHb VENOUS 3.5 %; FMetHb VENOUS 0.3 % (0.0 - 0.5); FO2Hb VENOUS 94.9 %; GLUCOSE (ABG) 143 mg/dl (70-105); IONIZED CA (ABG) 1.16 mmol/L (1.10-1.43); K (ABG) 4.1 mmol/L (3.5-5.0); TOTAL HEMOGLOBIN 15.2 G/dl (14.0-18.0)
[2021-09-13 12:32] LABS: ABG BASE EXCESS VENOUS -1.5 mmol/L (-2.0 - 2.0); ABG HCO3 VENOUS 24.5 mmol/L (21.0-28.0); ABG PCO2 VENOUS 46.4 mmHg (41.0-54.0); ABG PO2 VENOUS 42.5 mmHg (25.0-35.0); CL (ABG) 100 mmol/L (98-110); FCOHb VENOUS 1.2 %; FHHb VENOUS 22.1 %; FMetHb VENOUS 0.3 % (0.0 - 0.5); FO2Hb VENOUS 76.4 %; GLUCOSE (ABG) 140 mg/dl (70-105); IONIZED CA (ABG) 0.98 mmol/L (1.10-1.43); K (ABG) 3.9 mmol/L (3.5-5.0); TOTAL HEMOGLOBIN 12.1 G/dl (14.0-18.0)
[2021-09-13] MEDS ORDERED: CISatracurium **Bolus** 2 mg/ml inj IV ONE (12:34)
[2021-09-13 12:36] LABS: ABG HCO3 26.5 mmol/L (22.0-26.0); ABG OXYGEN SATURATION 99.1 % (94-97); ABG PCO2 51.1 mmHg (35.0-48.0); ABG PO2 279.1 mmHg (75.0-100.0); CL (ABG) 101 mmol/L (98-110); FCOHb 0.7 % (0.0-3.9); FMetHb 0.3 % (0.0-1.5); FO2Hb 98.1 % (94-97); GLUCOSE (ABG) 160 mg/dl (70-105); IONIZED CA (ABG) 1.01 mmol/L (1.10-1.43); K (ABG) 3.4 mmol/L (3.5-5.0); TOTAL HEMOGLOBIN 12.4 G/dl (14.0-18.0)
[2021-09-13 13:04] LABS: ABG BASE EXCESS -2.9 mmol/L (-2.0-2.0); ABG PCO2 44.4 mmHg (35.0-48.0); ABG PO2 321.6 mmHg (75.0-100.0)
[2021-09-13 13:05] LABS: ABG OXYGEN SATURATION 98.9 % (94-97); CL (ABG) 102 mmol/L (98-110); FCOHb 0.2 % (0.0-3.9); FMetHb 0.3 % (0.0-1.5); FO2Hb 98.4 % (94-97); GLUCOSE (ABG) 182 mg/dl (70-105); IONIZED CA (ABG) 1.07 mmol/L (1.10-1.43); K (ABG) 4.4 mmol/L (3.5-5.0); TOTAL HEMOGLOBIN 13.1 G/dl (14.0-18.0)
[2021-09-13 13:46] LABS: ABG BASE EXCESS VENOUS 1.5 mmol/L (-2.0 - 2.0); ABG HCO3 VENOUS 27.6 mmol/L (21.0-28.0); ABG PO2 VENOUS 95.8 mmHg (25.0-35.0); CL (ABG) 104 mmol/L (98-110); FCOHb VENOUS 1.1 %; FHHb VENOUS 2.8 %; FMetHb VENOUS 0.3 % (0.0 - 0.5); FO2Hb VENOUS 95.8 %; GLUCOSE (ABG) 181 mg/dl (70-105); K (ABG) 3.8 mmol/L (3.5-5.0); TOTAL HEMOGLOBIN 13.6 G/dl (14.0-18.0)
[2021-09-13 13:47] LABS: ACTIVATED CLOTTING TIME 132 SEC (101-148)
[2021-09-13] MEDS ORDERED: pantoprazole 40 MG vial IV ONE (13:50)
[2021-09-13] MEDS ORDERED: bisacodyl 10mg suppository rectal RC PRN (13:50)
[2021-09-13] MEDS ORDERED: potassium Cl 20 mEq SR tablet PO PRN (13:50)
[2021-09-13] MEDS ORDERED: dextrose 50%-water 50ml dispensing syringe IV PRN (13:50)
[2021-09-13] MEDS ORDERED: sodium chloride 0.45% 1,000 ML IV SCH (13:50)
[2021-09-13] MEDS ORDERED: insulin glargine (Lantus) pen - multi-dose SQ PRN (13:50)
[2021-09-13] MEDS ORDERED: sodium phosphate inj. 30 MMOL in dextrose 5%-water 250 ML IV PRN (13:50)
[2021-09-13] MEDS ORDERED: metoclopramide 5 mg/ml inj IV PRN (13:50)
[2021-09-13] MEDS ORDERED: HYDROcodone/acetaminophen 10/325mg tab PO PRN (13:50)
[2021-09-13] MEDS ORDERED: Insulin Reg/NS 100units/100mL 100 ML IV SCH (13:50)
[2021-09-13] MEDS ORDERED: magnesium 4gm in 100ml NS 100 ML IV PRN (13:50)
[2021-09-13] MEDS ORDERED: potassium Cl 40MEQ/1/2NS 520ml 520 ML IV PRN (13:50)
[2021-09-13] MEDS ORDERED: potassium Cl 20mEq/100mL bag 100 ML IV PRN (13:50)
[2021-09-13] MEDS ORDERED: magnesium citrate 296ml oral solution PO PRN (13:50)
[2021-09-13] MEDS ORDERED: ipratropium/albuterol 3ml nebule IH PRN (13:50)
[2021-09-13] MEDS ORDERED: niCARDipine-NS 40mg/200ml IVPB 200 ML IV PRN (13:50)
[2021-09-13] MEDS ORDERED: ondansetron/PF 4mg/2ml inj IV PRN (13:50)
[2021-09-13] MEDS ORDERED: potassium CL 10mEq/100ml bag 100 ML IV PRN (13:50)
[2021-09-13] MEDS ORDERED: mineral oil 133ml enema RC PRN (13:50)
[2021-09-13] MEDS ORDERED: Neutra Phos packet PO PRN (13:50)
[2021-09-13] MEDS ORDERED: morphine 4 MG/ML inj SYRINge IV PRN (13:50)
[2021-09-13] MEDS ORDERED: magnesium 2GM in 50ml NS 50 ML IV PRN (13:50)
[2021-09-13] MEDS ORDERED: acetaminophen 325mg tablet PO PRN ×2 (13:50)
[2021-09-13] MEDS ORDERED: albumin (Human) 5% 250ml 250 ML IV PRN (13:50)
[2021-09-13] MEDS ORDERED: NOREPINEPHRINE BITARTRATE/D5W 250 ML IV PRN (13:50)
[2021-09-13] MEDS ORDERED: magnesium hydroxide 30ml (MOM) UD suspension PO PRN (13:50)
[2021-09-13] MEDS ORDERED: sodium phosphate inj. 15 MMOL in dextrose 5%-water 250 ML IV PRN (13:50)
[2021-09-13] MEDS ORDERED: nitroGLYCERIN-Tridil 50MG/D5W 250 ML IV SCH (13:50)
[2021-09-13] MEDS ORDERED: NORepinephrine 8mg/ 250ml NS 250 ML IV PRN (14:05)
[2021-09-13] MEDS ORDERED: cyclobenzaprine 10mg tablet PO PRN (14:10)
--- NOTE | 2021-09-13 14:17 | NUR ---
Received to room [], accompanied by MDs [] and surgical crew. Placed on ventilator, to rail car operator, arterial line and PA line pressure monitored. Chest tubes to suction at 20 cm. Grayson cath to gravity drainage. Dressings are dry and intact. See assessment record. All vasoactive drugs are infusing via central line.
--- NOTE | 2021-09-13 14:20 | NUR ---
CABG Consult: Pt admit s/p CABGx3 per EMR. Would benefit from CABG ed once appropriate post-op. Addendum: 09/13/21 at [address] Amended: Links added.
[2021-09-13] MEDS: morphine 4 MG/ML inj SYRINge IV PRN ×4 (14:45→20:01)
[2021-09-13 14:49] LABS: ABG HCO3 22.6 mmol/L (22.0-26.0); ABG OXYGEN SATURATION 97.3 % (94-97); ABG PCO2 (T) 34.4 mmHg (35.0-48.0); ABG PO2 (T) 103.5 mmHg (75.0-100.0); FCOHb 0.9 % (0.0-3.9); FMetHb 0.1 % (0.0-1.5); FO2Hb 96.3 % (94-97); PATIENT TEMPERATURE 36.8; PEEP 5 cm H2O; RESPIRATORY RATE 14 b/min; TIDAL VOLUME 750 mL; TOTAL HEMOGLOBIN 14.4 G/dl (14.0-18.0)
--- NOTE | 2021-09-13 15:00 | NUR ---
pt extremely agitated- sitting up, bending legs, biting tubes. reassured, repositioned. ms 4mg given- calm briefly only.
[2021-09-13 15:08] LABS: BASOPHILS % (AUTO) 0.2 % (0-1); EOSINOPHILS # (AUTO) 0.1 X10'3 (0-0.9); EOSINOPHILS % (AUTO) 0.9 % (0-6); HEMATOCRIT 42.2 % (42.0-52.0); HEMOGLOBIN 14.2 g/dl (14.0-17.9); LYMPHOCYTES # (AUTO) 0.7 X10'3 (1.1-4.8); MEAN CORPUSCULAR HEMOGLOBIN 28.6 PG (27.0-31.0); MEAN CORPUSCULAR HGB CONC 33.7 g/dL (33.0-36.5); MEAN CORPUSCULAR VOLUME 85.1 FL (78-98); MEAN PLATELET VOLUME 8.8 FL (7.4-10.4); MONOCYTES # (AUTO) 0.7 X10'3 (0-0.9); MONOCYTES % (AUTO) 8.5 % (2-12); NEUTROPHILS # (AUTO) 6.4 X10'3 (1.8-7.7); NEUTROPHILS % (AUTO) 81.4 % (42-75); PLATELET COUNT 148 X10'3 (140-440); RED BLOOD COUNT 4.96 X10'6 (4.70-6.10); RED CELL DISTRIBUTION WIDTH 15.3 % (11.5-14.5); WHITE BLOOD COUNT 7.8 X10'3 (4.5-11.0)
[2021-09-13 15:16] LABS: PARTIAL THROMBOPLASTIN TIME 29 SECONDS (22-32)
[2021-09-13 15:20] LABS: ALANINE AMINOTRANSFERASE 33 U/L (12-78); ALBUMIN 2.7 G/DL (3.4-5.0); ALKALINE PHOSPHATASE 35 IU/L (46-116); ANION GAP 9 (8-16); BILIRUBIN,TOTAL 0.7 MG/DL (0.1-1.0); BLOOD UREA NITROGEN 19 MG/DL (7-18); BUN/CREATININE RATIO 17.8 (5.4-32.0); CHLORIDE 110 MMOL/L (99-107); CREATININE 1.07 MG/DL (0.60-1.10); GLUCOSE 142 MG/DL (70-104); MAGNESIUM 1.8 MG/DL (1.5-2.4); SODIUM 143 MMOL/L (135-145); TOTAL CARBON DIOXIDE 24.2 MMOL/L (24-32); TOTAL PROTEIN 5.3 G/DL (6.4-8.2); eGFR 70 ML/MIN
[2021-09-13 15:47] LABS: ASPARTATE AMINO TRANSFERASE 48 U/L (10-37); POTASSIUM 3.7 MMOL/L (3.5-5.1)
[2021-09-13] MEDS: cefazolin/dext.iso 2gm/50ml 50 ML IV SCH (16:49)
--- NOTE | 2021-09-13 17:00 | NUR ---
decreasing fio2, on spont since 1600- dee fair- better since here- though continues to bite on ett. parameters done and abg. pt awakenes, obeys commands. sbp 190's to 90's over day- tridil off,
[2021-09-13 17:40] LABS: ABG BASE EXCESS -3.7 mmol/L (-2.0-2.0); ABG HCO3 21.1 mmol/L (22.0-26.0); ABG OXYGEN SATURATION 94.7 % (94-97); ABG PCO2 (T) 38.1 mmHg (35.0-48.0); ABG PO2 (T) 80.2 mmHg (75.0-100.0); FCOHb 0.8 % (0.0-3.9); FMetHb 0.1 % (0.0-1.5); FO2Hb 93.8 % (94-97); PEEP 5 cm H2O
[2021-09-13] MEDS: potassium Cl 40MEQ/250ML bag 250 ML IV PRN ×2 (18:00→22:22)
--- NOTE | 2021-09-13 18:30 | NUR ---
Patient in room ICU 2037. I have received report from Dayami OLIVA and had the opportunity to ask questions and assume patient care.
--- NOTE | 2021-09-13 18:47 | NUR ---
PT was Extubated by Anesthesia after passing all weaning parameters and placed on 4L NC, Tolerating well, O2 sat is <94%. Will continue to monitor Addendum: 09/14/21 at 0642 by Jone Gu RN Anesthesiologist gave verbal order for the Femoral sheath to be D/C'd.
[2021-09-13] MEDS: sennosides/docusate sodium tablet PO SCH (20:00)
[2021-09-13] MEDS: cetirizine 10mg tablet PO SCH (20:00)
[2021-09-13] MEDS ORDERED: mupirocin 2% nasal ointment 1gm UD NS SCH (20:00)
[2021-09-13 20:34] LABS: BASOPHILS % (AUTO) 0.2 % (0-1); EOSINOPHILS % (AUTO) 0.1 % (0-6); HEMATOCRIT 45.9 % (42.0-52.0); HEMOGLOBIN 15.4 g/dl (14.0-17.9); LYMPHOCYTES # (AUTO) 0.4 X10'3 (1.1-4.8); LYMPHOCYTES % (AUTO) 2.9 % (21-51); MEAN CORPUSCULAR HEMOGLOBIN 28.4 PG (27.0-31.0); MEAN CORPUSCULAR HGB CONC 33.6 g/dL (33.0-36.5); MEAN CORPUSCULAR VOLUME 84.6 FL (78-98); MEAN PLATELET VOLUME 8.4 FL (7.4-10.4); MONOCYTES # (AUTO) 0.5 X10'3 (0-0.9); MONOCYTES % (AUTO) 3.9 % (2-12); NEUTROPHILS # (AUTO) 13.1 X10'3 (1.8-7.7); NEUTROPHILS % (AUTO) 92.9 % (42-75); PLATELET COUNT 170 X10'3 (140-440); RED BLOOD COUNT 5.43 X10'6 (4.70-6.10); RED CELL DISTRIBUTION WIDTH 15.6 % (11.5-14.5)
[2021-09-13] MEDS: lactobacillus rhamnosus 10,000 MMU CELLS/CAPSULE PO SCH (20:34)
[2021-09-13] MEDS: atorvastatin 10mg tablet PO SCH (20:35)
[2021-09-13] MEDS: gabapentin 300mg capsule PO SCH (20:35)
[2021-09-13] MEDS: mupirocin 2% nasal ointment 1gm UD NS SCH (20:36)
[2021-09-13] MEDS: vancomycin/NS 1 GM ADD-VANTAGE 250 ML IV SCH (20:36)
[2021-09-13 20:47] LABS: ALBUMIN 3.4 G/DL (3.4-5.0); ANION GAP 10 (8-16); BLOOD UREA NITROGEN 20 MG/DL (7-18); BUN/CREATININE RATIO 16.9 (5.4-32.0); CALCIUM 8.6 MG/DL (8.5-10.1); CHLORIDE 110 MMOL/L (99-107); CREATININE 1.18 MG/DL (0.60-1.10); GLUCOSE 135 MG/DL (70-104); MAGNESIUM 3.1 MG/DL (1.5-2.4); PHOSPHORUS 3.6 MG/DL (2.3-4.5); POTASSIUM 4.1 MMOL/L (3.5-5.1); SODIUM 144 MMOL/L (135-145); TOTAL CARBON DIOXIDE 23.6 MMOL/L (24-32); eGFR 62 ML/MIN
[2021-09-13] MEDS: HYDROcodone/acetaminophen 10/325mg tab PO PRN (22:30)
[2021-09-14] VITALS (24 sets, daily range): BP systolic 102–188; BP diastolic 52–76
[2021-09-14] MEDS: morphine 4 MG/ML inj SYRINge IV PRN (00:24)
[2021-09-14] MEDS: cefazolin/dext.iso 2gm/50ml 50 ML IV SCH ×3 (01:10→15:35)
[2021-09-14] MEDS: Insulin Reg/NS 100units/100mL 100 ML IV SCH (01:16)
[2021-09-14 03:10] LABS: BASOPHILS % (AUTO) 0 % (0-1); EOSINOPHILS % (AUTO) 0 % (0-6); HEMATOCRIT 45.9 % (42.0-52.0); HEMOGLOBIN 15.2 g/dl (14.0-17.9); LYMPHOCYTES # (AUTO) 0.4 X10'3 (1.1-4.8); LYMPHOCYTES % (AUTO) 2.9 % (21-51); MEAN CORPUSCULAR HEMOGLOBIN 28.3 PG (27.0-31.0); MEAN CORPUSCULAR HGB CONC 33.1 g/dL (33.0-36.5); MEAN CORPUSCULAR VOLUME 85.5 FL (78-98); MEAN PLATELET VOLUME 9.1 FL (7.4-10.4); MONOCYTES # (AUTO) 0.7 X10'3 (0-0.9); MONOCYTES % (AUTO) 4.9 % (2-12); NEUTROPHILS # (AUTO) 12.5 X10'3 (1.8-7.7); NEUTROPHILS % (AUTO) 92.2 % (42-75); PLATELET COUNT 163 X10'3 (140-440); RED BLOOD COUNT 5.37 X10'6 (4.70-6.10); RED CELL DISTRIBUTION WIDTH 15.8 % (11.5-14.5); WHITE BLOOD COUNT 13.6 X10'3 (4.5-11.0)
[2021-09-14 03:27] LABS: ALANINE AMINOTRANSFERASE 36 U/L (12-78); ALBUMIN 3.3 G/DL (3.4-5.0); ALBUMIN/GLOBULIN RATIO 1.1 (1.1-1.5); ALKALINE PHOSPHATASE 42 IU/L (46-116); ANION GAP 10 (8-16); ASPARTATE AMINO TRANSFERASE 52 U/L (10-37); BILIRUBIN,TOTAL 0.5 MG/DL (0.1-1.0); BLOOD UREA NITROGEN 21 MG/DL (7-18); BUN/CREATININE RATIO 23.1 (5.4-32.0); CALCIUM 8.4 MG/DL (8.5-10.1); CHLORIDE 112 MMOL/L (99-107); CREATININE 0.91 MG/DL (0.60-1.10); GLUCOSE 129 MG/DL (70-104); MAGNESIUM 2.6 MG/DL (1.5-2.4); PHOSPHORUS 3.9 MG/DL (2.3-4.5); POTASSIUM 4.5 MMOL/L (3.5-5.1); SODIUM 146 MMOL/L (135-145); TOTAL CARBON DIOXIDE 24.1 MMOL/L (24-32); TOTAL PROTEIN 6.4 G/DL (6.4-8.2); eGFR 84 ML/MIN
--- NOTE | 2021-09-14 04:00 | NUR ---
Femoral sheath pulled and direct pressure held for 20min until hemostasis achieved. There is a small hematoma present, site is clean and dry. FemStop placed and PT is tolerating well. Will continue to monitor.
--- NOTE | 2021-09-14 06:27 | NUR ---
Problems reprioritized. Patient report given, questions answered & plan of care reviewed with Dayami OLIVA.
--- NOTE | 2021-09-14 06:30 | NUR ---
Patient in room ICU 2037. I have received report from joel and had the opportunity to ask questions and assume patient care.
[2021-09-14] MEDS: aspirin 325mg tablet, delayed-release (Ecotrin) PO SCH (07:55)
[2021-09-14] MEDS: gabapentin 300mg capsule PO SCH ×3 (07:56→20:19)
[2021-09-14] MEDS: multivitamins, therapeutics tablet PO SCH (07:56)
[2021-09-14] MEDS: lactobacillus rhamnosus 10,000 MMU CELLS/CAPSULE PO SCH ×2 (07:56→20:18)
[2021-09-14] MEDS: mupirocin 2% nasal ointment 1gm UD NS SCH ×2 (07:56→20:20)
[2021-09-14] MEDS: vancomycin/NS 1 GM ADD-VANTAGE 250 ML IV SCH ×2 (07:59→20:20)
[2021-09-14] MEDS ORDERED: GLUCOSAMINE HCL 1500 MG PO SCH (08:00)
[2021-09-14] MEDS: cetirizine 10mg tablet PO SCH ×2 (08:02→20:21)
[2021-09-14] MEDS: sennosides/docusate sodium tablet PO SCH ×2 (08:02→20:18)
[2021-09-14] MEDS: metoprolol tartrate 12.5mg (1/2 tablet) PO SCH ×2 (08:02→20:18)
[2021-09-14] MEDS: pantoprazole 40mg Tablet.DR PO SCH (08:10)
[2021-09-14] MEDS: HYDROcodone/acetaminophen 10/325mg tab PO PRN ×3 (08:11→20:19)
--- NOTE | 2021-09-14 10:35 | NUR ---
pt awake and alert- ambulated with pt and now in chair. pa and aleida dcd after update to md.
--- NOTE | 2021-09-14 11:00 | NUR ---
Received patient report from Dayami OLIVA.
--- NOTE | 2021-09-14 11:13 | NUR ---
DM Consult: Pt A1C 7.0 hx T2DM per EMR. Pt extubated yesterday w/ Glu acceptable range this AM on insulin drip and PO hx pending NCS diet post-op. Would benefit from DM and CABG eds once more appropriate post-op. Addendum: 09/14/21 at [address] Amended: Links added.
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
--- NOTE | 2021-09-14 18:20 | NUR ---
Problems reprioritized. Patient report given, questions answered & plan of care reviewed with Zachary OLIVA.
[2021-09-14] MEDS: atorvastatin 10mg tablet PO SCH (20:18)
[2021-09-14] MEDS ORDERED: midazolam 100mg in NS 100ml 100 ML IV PRN (22:05)
[2021-09-15] VITALS (17 sets, daily range): BP systolic 103–143; BP diastolic 62–87
[2021-09-15] MEDS ORDERED: dextrose 50%-water 50ml dispensing syringe IV PRN ×2 (02:15)
[2021-09-15] MEDS ORDERED: dextrose ORAL solution 15 GM/59 ML bottle PO PRN ×2 (02:15)
[2021-09-15] MEDS ORDERED: glucagon, human recombinant 1mg kit SUBCUT PRN (02:15)
[2021-09-15] MEDS: HYDROcodone/acetaminophen 10/325mg tab PO PRN ×3 (02:43→20:15)
[2021-09-15] MEDS: cefazolin/dext.iso 2gm/50ml 50 ML IV SCH (02:43)
[2021-09-15 03:49] LABS: BASOPHILS % (AUTO) 0 % (0-1); EOSINOPHILS % (AUTO) 0 % (0-6); HEMOGLOBIN 14.5 g/dl (14.0-17.9); LYMPHOCYTES # (AUTO) 1.2 X10'3 (1.1-4.8); LYMPHOCYTES % (AUTO) 8.9 % (21-51); MEAN CORPUSCULAR HEMOGLOBIN 28.5 PG (27.0-31.0); MEAN CORPUSCULAR HGB CONC 32.9 g/dL (33.0-36.5); MEAN CORPUSCULAR VOLUME 86.6 FL (78-98); MEAN PLATELET VOLUME 9.2 FL (7.4-10.4); MONOCYTES # (AUTO) 1.4 X10'3 (0-0.9); MONOCYTES % (AUTO) 10.3 % (2-12); NEUTROPHILS # (AUTO) 10.9 X10'3 (1.8-7.7); NEUTROPHILS % (AUTO) 80.8 % (42-75); PLATELET COUNT 162 X10'3 (140-440); RED BLOOD COUNT 5.08 X10'6 (4.70-6.10); RED CELL DISTRIBUTION WIDTH 15.7 % (11.5-14.5); WHITE BLOOD COUNT 13.5 X10'3 (4.5-11.0)
[2021-09-15 04:47] LABS: ANION GAP 8 (8-16); BLOOD UREA NITROGEN 21 MG/DL (7-18); BUN/CREATININE RATIO 23.9 (5.4-32.0); CALCIUM 8.2 MG/DL (8.5-10.1); CHLORIDE 105 MMOL/L (99-107); CREATININE 0.88 MG/DL (0.60-1.10); GLUCOSE 184 MG/DL (70-104); MAGNESIUM 2.1 MG/DL (1.5-2.4); PHOSPHORUS 2.7 MG/DL (2.3-4.5); POTASSIUM 4.4 MMOL/L (3.5-5.1); SODIUM 140 MMOL/L (135-145); TOTAL CARBON DIOXIDE 26.7 MMOL/L (24-32); eGFR 87 ML/MIN
[2021-09-15 04:48] LABS: ALBUMIN 3.1 G/DL (3.4-5.0)
--- NOTE | 2021-09-15 06:30 | NUR ---
Patient in room PCU 3019. I have received report from night nurse and had the opportunity to ask questions and assume patient care.
--- NOTE | 2021-09-15 07:00 | NUR ---
cxr, ct removed and pacer wires by pablo mercedes. pt c/o extreme pain- 2 norco 10mg given- effective for pain, but became nauseaus, up to chair and then to bsc- passes large flatus, no bm. ambulated with PT- tolerated well, but sats to 85 on ra- returned to 3l.
[2021-09-15] MEDS ORDERED: magnesium 2GM in 50ml NS 50 ML IV PRN (07:15)
[2021-09-15] MEDS ORDERED: potassium Cl 20mEq/100mL bag 100 ML IV PRN (07:15)
[2021-09-15] MEDS ORDERED: potassium CL 10mEq/100ml bag 100 ML IV PRN (07:15)
[2021-09-15] MEDS ORDERED: potassium Cl 40MEQ/250ML bag 250 ML IV PRN (07:15)
[2021-09-15] MEDS ORDERED: potassium Cl 20 mEq SR tablet PO PRN (07:15)
[2021-09-15] MEDS ORDERED: magnesium 4gm in 100ml NS 100 ML IV PRN (07:15)
[2021-09-15] MEDS ORDERED: potassium Cl 40MEQ/1/2NS 520ml 520 ML IV PRN (07:15)
[2021-09-15] MEDS ORDERED: salt irrigation nasal spray 45 ML SPRAY NS PRN (07:40)
[2021-09-15] MEDS ORDERED: insulin Lispro (HumaLOG) vial - multi-dose SQ SCH (08:00)
[2021-09-15] MEDS: fluticasone nasal spray 16GM bottle NS SCH (08:00)
[2021-09-15] MEDS: mupirocin 2% nasal ointment 1gm UD NS SCH (08:00)
[2021-09-15] MEDS: gabapentin 300mg capsule PO SCH ×2 (08:36→13:37)
[2021-09-15] MEDS: sennosides/docusate sodium tablet PO SCH ×2 (08:37→20:12)
[2021-09-15] MEDS: metoprolol tartrate 25mg tablet PO SCH ×2 (08:38→20:12)
[2021-09-15] MEDS: multivitamins, therapeutics tablet PO SCH (08:38)
[2021-09-15] MEDS: aspirin 325mg tablet, delayed-release (Ecotrin) PO SCH (08:38)
[2021-09-15] MEDS: potassium Cl 20 mEq SR tablet PO SCH ×2 (08:39→20:12)
[2021-09-15] MEDS: magnesium Cl slow-release 64mg tablet PO SCH ×2 (08:40→20:09)
[2021-09-15] MEDS: lactobacillus rhamnosus 10,000 MMU CELLS/CAPSULE PO SCH ×2 (08:40→20:12)
[2021-09-15] MEDS: pantoprazole 40mg Tablet.DR PO SCH (08:40)
[2021-09-15] MEDS: cetirizine 10mg tablet PO SCH ×2 (08:41→20:12)
[2021-09-15] MEDS: insulin Lispro (HumaLOG) vial - multi-dose SQ SCH ×2 (08:46→13:36)
[2021-09-15] MEDS: insulin glargine (Lantus) pen - multi-dose SQ SCH (08:49)
--- NOTE | 2021-09-15 12:00 | NUR ---
fc and cl dcd- awaiting to give report for tx to tele.
--- NOTE | 2021-09-15 12:17 | NUR ---
Nutrition consult: Pt in the process of getting transferred to another unit. Will provide DM and CABG educations once appropriate. Addendum: 09/15/21 at [address] Amended: Links added.
--- NOTE | 2021-09-15 12:30 | NUR ---
pt tx out by wc accompanied by ,
--- NOTE | 2021-09-15 18:31 | NUR ---
Problems reprioritized. Patient report given, questions answered & plan of care reviewed with Josie RN.
[2021-09-15] MEDS: atorvastatin 10mg tablet PO SCH (20:09)
[2021-09-15] MEDS ORDERED: insulin glargine (Lantus) pen - multi-dose SQ SCH (21:00)
[2021-09-16 02:00] VITALS: BP 131/71
[2021-09-16 06:00] VITALS: BP 148/76
--- NOTE | 2021-09-16 06:19 | NUR ---
Problems reprioritized. Patient report given, questions answered & plan of care reviewed with Wagner OLIVA .
[2021-09-16 06:41] LABS: BASOPHILS % (AUTO) 0.1 % (0-1); EOSINOPHILS # (AUTO) 0.1 X10'3 (0-0.9); EOSINOPHILS % (AUTO) 0.5 % (0-6); HEMATOCRIT 46.7 % (42.0-52.0); HEMOGLOBIN 15.7 g/dl (14.0-17.9); LYMPHOCYTES # (AUTO) 1.3 X10'3 (1.1-4.8); LYMPHOCYTES % (AUTO) 9.5 % (21-51); MEAN CORPUSCULAR HEMOGLOBIN 28.9 PG (27.0-31.0); MEAN CORPUSCULAR HGB CONC 33.7 g/dL (33.0-36.5); MEAN CORPUSCULAR VOLUME 85.6 FL (78-98); MEAN PLATELET VOLUME 8.9 FL (7.4-10.4); MONOCYTES # (AUTO) 1.4 X10'3 (0-0.9); MONOCYTES % (AUTO) 10.3 % (2-12); NEUTROPHILS # (AUTO) 10.7 X10'3 (1.8-7.7); NEUTROPHILS % (AUTO) 79.6 % (42-75); PLATELET COUNT 176 X10'3 (140-440); RED BLOOD COUNT 5.45 X10'6 (4.70-6.10); RED CELL DISTRIBUTION WIDTH 15.2 % (11.5-14.5); WHITE BLOOD COUNT 13.4 X10'3 (4.5-11.0)
[2021-09-16 07:10] LABS: ALBUMIN 3.1 G/DL (3.4-5.0); ANION GAP 13 (8-16); BLOOD UREA NITROGEN 23 MG/DL (7-18); BUN/CREATININE RATIO 34.8 (5.4-32.0); CALCIUM 8.9 MG/DL (8.5-10.1); CHLORIDE 104 MMOL/L (99-107); CREATININE 0.66 MG/DL (0.60-1.10); GLUCOSE 164 MG/DL (70-104); POTASSIUM 4.2 MMOL/L (3.5-5.1); SODIUM 141 MMOL/L (135-145); TOTAL CARBON DIOXIDE 23.9 MMOL/L (24-32); eGFR > 90 ML/MIN
[2021-09-16] MEDS: cetirizine 10mg tablet PO SCH ×2 (08:01→19:35)
[2021-09-16] MEDS: multivitamins, therapeutics tablet PO SCH (08:01)
[2021-09-16] MEDS: HYDROcodone/acetaminophen 10/325mg tab PO PRN ×2 (08:02→16:28)
[2021-09-16] MEDS: metoprolol tartrate 25mg tablet PO SCH ×2 (08:02→19:39)
[2021-09-16] MEDS: magnesium Cl slow-release 64mg tablet PO SCH ×2 (08:02→19:34)
[2021-09-16] MEDS: aspirin 325mg tablet, delayed-release (Ecotrin) PO SCH (08:02)
[2021-09-16] MEDS: sennosides/docusate sodium tablet PO SCH ×2 (08:02→19:39)
[2021-09-16] MEDS: pantoprazole 40mg Tablet.DR PO SCH (08:03)
[2021-09-16] MEDS: potassium Cl 20 mEq SR tablet PO SCH ×2 (08:03→19:36)
[2021-09-16] MEDS: lactobacillus rhamnosus 10,000 MMU CELLS/CAPSULE PO SCH ×2 (08:03→19:39)
[2021-09-16] MEDS: insulin glargine (Lantus) pen - multi-dose SQ SCH ×2 (08:07→22:36)
[2021-09-16] MEDS ORDERED: metoprolol tartrate 25mg tablet PO ONE (08:35)
[2021-09-16] MEDS: fluticasone nasal spray 16GM bottle NS SCH (09:44)
[2021-09-16] MEDS ORDERED: HYDR-3972 PO ×2 (11:58)
[2021-09-16] MEDS ORDERED: LOP25T PO ×2 (11:58)
[2021-09-16] MEDS: insulin Lispro (HumaLOG) vial - multi-dose SQ SCH ×2 (13:23→19:26)
[2021-09-16 15:00] VITALS: BP 138/75
[2021-09-16 18:00] VITALS: BP 179/87
[2021-09-16] MEDS: atorvastatin 10mg tablet PO SCH (20:46)
[2021-09-16 22:00] VITALS: BP 120/77
--- NOTE | 2021-09-17 06:18 | NUR ---
Problems reprioritized. Patient report given, questions answered & plan of care reviewed with Naresh OLIVA.
[2021-09-17 06:46] LABS: ISTAT HGB ART 16.7 g/dl (14.0-18.0); ISTAT Hct ART 49 %PCV (42-52); ISTAT O2 SATURATION ARTERIAL 100 % (95-98); ISTAT SOURCE BLNK
[2021-09-17 07:07] LABS: BASOPHILS % (AUTO) 0.2 % (0-1); EOSINOPHILS # (AUTO) 0.3 X10'3 (0-0.9); EOSINOPHILS % (AUTO) 2.8 % (0-6); HEMATOCRIT 52.7 % (42.0-52.0); HEMOGLOBIN 17.5 g/dl (14.0-17.9); LYMPHOCYTES # (AUTO) 1.3 X10'3 (1.1-4.8); LYMPHOCYTES % (AUTO) 13.5 % (21-51); MEAN CORPUSCULAR HEMOGLOBIN 28.7 PG (27.0-31.0); MEAN CORPUSCULAR HGB CONC 33.2 g/dL (33.0-36.5); MEAN CORPUSCULAR VOLUME 86.5 FL (78-98); MEAN PLATELET VOLUME 8.9 FL (7.4-10.4); MONOCYTES # (AUTO) 0.9 X10'3 (0-0.9); MONOCYTES % (AUTO) 8.9 % (2-12); NEUTROPHILS # (AUTO) 7.2 X10'3 (1.8-7.7); NEUTROPHILS % (AUTO) 74.6 % (42-75); PLATELET COUNT 195 X10'3 (140-440); RED CELL DISTRIBUTION WIDTH 15.4 % (11.5-14.5); WHITE BLOOD COUNT 9.6 X10'3 (4.5-11.0)
[2021-09-17 07:48] LABS: ALBUMIN 2.9 G/DL (3.4-5.0); ANION GAP 15 (8-16); BLOOD UREA NITROGEN 23 MG/DL (7-18); BUN/CREATININE RATIO 39.7 (5.4-32.0); CALCIUM 9.1 MG/DL (8.5-10.1); CHLORIDE 103 MMOL/L (99-107); CREATININE 0.58 MG/DL (0.60-1.10); GLUCOSE 150 MG/DL (70-104); SODIUM 139 MMOL/L (135-145); eGFR > 90 ML/MIN
[2021-09-17] MEDS: cetirizine 10mg tablet PO SCH (08:00)
[2021-09-17 08:07] LABS: POTASSIUM 4.9 MMOL/L (3.5-5.1)
[2021-09-17] MEDS: lactobacillus rhamnosus 10,000 MMU CELLS/CAPSULE PO SCH (08:46)
[2021-09-17] MEDS: aspirin 325mg tablet, delayed-release (Ecotrin) PO SCH (08:46)
[2021-09-17] MEDS: pantoprazole 40mg Tablet.DR PO SCH (08:46)
[2021-09-17] MEDS: multivitamins, therapeutics tablet PO SCH (08:46)
[2021-09-17] MEDS: magnesium Cl slow-release 64mg tablet PO SCH (08:46)
[2021-09-17] MEDS: potassium Cl 20 mEq SR tablet PO SCH (08:47)
[2021-09-17 08:48] VITALS: BP_SYST 154
[2021-09-17] MEDS: metoprolol tartrate 25mg tablet PO SCH (08:48)
[2021-09-17] MEDS: sennosides/docusate sodium tablet PO SCH (08:48)
[2021-09-17] MEDS: HYDROcodone/acetaminophen 10/325mg tab PO PRN (08:49)
[2021-09-17] MEDS: fluticasone nasal spray 16GM bottle NS SCH (08:51)
[2021-09-17] MEDS: insulin Lispro (HumaLOG) vial - multi-dose SQ SCH (08:55)
--- NOTE | 2021-09-17 11:06 | NUR ---
PT IS STABLE FOR DISCHARGE PER MD ORDERS. ALL DISCHARGE INSTRUCTIONS REVIEWED WITH PT AND ALL QUESTIONS ANSWERED. PT WILL MAKE OWN FOLLOW UP APPOINTMENTS. NEW RX'S E-SCRIPTED TO [facility]. PIV DISCONTINUED, CANNULA INTACT. HOSPICE SPIRITUAL CARE COORDINATOR DISCONTINUED. BELONGINGS COLLECTED AND SENT WITH PT. PATIENT WAS WHEELED TO FRONT OF LOBBY WHERE PRIVATE VEHICLE WAS WAITING.
[2021-09-23] MEDS ORDERED: LEVO500T90 PO ×2 (21:14)
[2021-09-24] MEDS ORDERED: CLOP75TA34 PO (15:13)
[2021-09-24] MEDS ORDERED: FLUT16SP13 BOTHNARES (15:13)
[2021-09-24] MEDS ORDERED: LOP12.5T PO (15:13)
== END 2021-09-17 11:06 | disposition home health service (06) | DRG 236 ==
LOC: PAS IN 08:12 → ICU 2S 13:32 → PCU 3S 09-15 12:45
PROVIDERS: ADMIT Thoracic Surgery (Cardiothoracic Vascular Surgery); ATTEND Thoracic Surgery (Cardiothoracic Vascular Surgery)
PROC: 021109W Bypass Coronary Artery, Two Arteries from Aorta with Autologous Venous Tissue, Open Approach (ICD-10-PCS; 2021-09-13)
PROC: 06BQ4ZZ Excision of Left Saphenous Vein, Percutaneous Endoscopic Approach (ICD-10-PCS; 2021-09-13)
PROC: 5A1221Z Performance of Cardiac Output, Continuous (ICD-10-PCS; 2021-09-13)
PROC: B24BZZ4 Ultrasonography of Heart with Aorta, Transesophageal (ICD-10-PCS; 2021-09-13)
PROC: 02100Z9 Bypass Coronary Artery, One Artery from Left Internal Mammary, Open Approach (ICD-10-PCS; principal; 2021-09-13 10:43)
DX: I25.10 Atherosclerotic heart disease of native coronary artery without angina pectoris (principal); E11.9 Type 2 diabetes mellitus without complications; E66.9 Obesity, unspecified; E78.5 Hyperlipidemia, unspecified; G47.33 Obstructive sleep apnea (adult) (pediatric); E87.70 Fluid overload, unspecified; R00.0 Tachycardia, unspecified; I10 Essential (primary) hypertension; M19.90 Unspecified osteoarthritis, unspecified site; Z68.39 Body mass index [BMI] 39.0-39.9, adult; Z95.5 Presence of coronary angioplasty implant and graft
CPT/HCPCS: 93312; 93325; Z7506; Z7508; 36415; 36600; 71045; 71046; 80048; 80053; 81001; 82330; 82435; 82803; 82947; 82948; 83036; 83735; 84100; 84132; 84295; 85014; 85018; 85025; 85347; 85610; 85730; 86885; 86900; 86901; 86920; 87081; 87635; 93005; 94002; 94760; 97110; 97116; 97161; 97530; A4618; A6258; A6446; A6449; A7000; A7048; C1751; C9113; G0378; J0171; J0690; J1265; J1644; J1815; J2001; J2060; J2150; J2270; J2405; J2440; J2704; J3370; J3475; J3480; J3490; J7030; J7040; J7050; J7060; J7120; P9047

== ENCOUNTER 2021-10-12 08:53 | Inpatient (IN) | payer BC ==
[2021-10-12] VITALS (15 sets, daily range): BP systolic 102–141; BP diastolic 53–80
[~2021-10-12] VITALS: Ht 170.2 cm; Wt 105.0 kg
[~2021-10-12 08:53] MED LIST changes: -ALPR0.5T8 PO; -BUPIVAcaine 0.5% inj/PF 30 ML ONE; -DOCUMENT DATE & TIME OF BETA-BLOCKER PO ONE; +FLUT16SP13 BOTHNARES; -FLUT16SP20 BOTHNARES; -GLUC750T8 PO; -HYDR-3964 PO; +HYDR-3965 PO; +LEVO750T46 PO; -LIDOcaine 1% (10mg/ml) 2ml vial ONE; +LOP12.5T PO; -LOP25T PO; -LORazepam 2 mg/ml vial IV PRN; -LOSA100T57 PO; -NITR0.4T48 SL; -ROSU40TA22 PO; -UBID100C16 PO; -ceFAZolin 1000mg inj ONE; -dextrose 50%-water 50ml dispensing syringe IV PRN; -dextrose ORAL solution 15 GM/59 ML bottle PO PRN; -epiNEPHrine 1 mg/ml inj ONE; -famotidine 20mg tablet PO ONE; -gabapentin 400mg capsule PO ONE; -glucagon, human recombinant 1mg kit SUBCUT PRN; -insulin Lispro (HumaLOG) vial - multi-dose SQ SCH; -insulin glargine (Lantus) pen - multi-dose SQ SCH; -mupirocin 2% nasal ointment 1gm UD NS ONE; -ringers solution, lacted 1,000 ML IV SCH
[2021-10-12] MEDS ORDERED: BUPIVAcaine 0.5% inj/PF 30 ML ONE (09:29)
[2021-10-12] MEDS ORDERED: LIDOcaine 1% 30ml preserv. free vial ONE (09:29)
[2021-10-12] MEDS ORDERED: ceFAZolin 2gm in dextrose, iso 50 ML IV ONE (09:50)
[2021-10-12] MEDS ORDERED: gabapentin 400mg capsule PO ONE (09:50)
[2021-10-12 10:09] LABS: BASOPHILS % (AUTO) 0.3 % (0-1); EOSINOPHILS # (AUTO) 0.1 X10'3 (0-0.9); LYMPHOCYTES # (AUTO) 1.1 X10'3 (1.1-4.8); LYMPHOCYTES % (AUTO) 14.4 % (21-51); MEAN CORPUSCULAR HEMOGLOBIN 28.3 PG (27.0-31.0); MEAN CORPUSCULAR HGB CONC 33.5 g/dL (33.0-36.5); MEAN CORPUSCULAR VOLUME 84.5 FL (78-98); MEAN PLATELET VOLUME 7.9 FL (7.4-10.4); MONOCYTES # (AUTO) 0.6 X10'3 (0-0.9); MONOCYTES % (AUTO) 7.4 % (2-12); NEUTROPHILS # (AUTO) 5.9 X10'3 (1.8-7.7); NEUTROPHILS % (AUTO) 76.9 % (42-75); PRE OP HEMATOCRIT 38.8 % (42.0-52.0); PRE OP PLATELET COUNT 213 X10'3 (140-440); RED BLOOD COUNT 4.59 X10'6 (4.70-6.10)
[2021-10-12] MEDS: mupirocin 2% nasal ointment 1gm UD NS SCH ×2 (10:09→19:32)
[2021-10-12 10:21] LABS: PRE OP INR 1.1 INR; PRE OP PROTIME 11.5 SECONDS (9.0-12.0)
[2021-10-12 10:23] LABS: ALBUMIN 2.7 G/DL (3.4-5.0); ALBUMIN/GLOBULIN RATIO 0.7 (1.1-1.5); ALKALINE PHOSPHATASE 101 IU/L (46-116); BLOOD UREA NITROGEN 21 MG/DL (7-18); BUN/CREATININE RATIO 30.4 (5.4-32.0); CALCIUM 8.7 MG/DL (8.5-10.1); CHLORIDE 103 MMOL/L (99-107); CREATININE 0.69 MG/DL (0.60-1.10); PRE OP ALT 20 U/L (30-65); PRE OP ANION GAP 10 (8-16); PRE OP AST 16 U/L (10-37); PRE OP BILIRUB, TOTAL 0.5 MG/DL (0.0-1.0); PRE OP GLUCOSE 107 MG/DL (70-104); PRE OP SODIUM 142 MMOL/L (135-145); TOTAL CARBON DIOXIDE 28.9 MMOL/L (24-32); TOTAL PROTEIN 6.7 G/DL (6.4-8.2); eGFR > 90 ML/MIN
[2021-10-12] MEDS ORDERED: midazolam 1 mg/ML 2ml injection ONE (12:23)
[2021-10-12] MEDS ORDERED: fentaNYL /PF 50mcg/ml 5ml ampule ONE ×2 (12:26→12:28)
[2021-10-12] MEDS ORDERED: LIDOcaine 2% (20mg/ml) 5ml vial ONE (13:24)
[2021-10-12] MEDS ORDERED: 0.9 % SODIUM CHLORIDE 10 ML VIAL ONE (13:24)
[2021-10-12] MEDS ORDERED: propofol inj 20 ML IV ONE (13:24)
[2021-10-12] MEDS ORDERED: ePHEDrine 50MG/ML INJ. ONE (13:25)
[2021-10-12] MEDS ORDERED: rocuronium 10mg/ml inj IV ONE (13:25)
[2021-10-12] MEDS ORDERED: morphine 2 MG/ML inj. syringe IV PRN ×2 (13:30→13:50)
[2021-10-12] MEDS ORDERED: ondansetron/PF 4mg/2ml inj IV PRN ×2 (13:30→13:50)
[2021-10-12] MEDS ORDERED: morphine 4 MG/ML inj SYRINge IV PRN ×2 (13:30→13:50)
[2021-10-12] MEDS ORDERED: metoclopramide 5 mg/ml inj IV PRN (13:30)
[2021-10-12] MEDS ORDERED: magnesium hydroxide 30ml (MOM) UD suspension PO PRN (13:30)
[2021-10-12] MEDS ORDERED: ondansetron/PF 4mg/2ml inj ONE (13:33)
[2021-10-12] MEDS ORDERED: neostigmine methylsulfate 1 MG/ML 10ml vial ONE (13:33)
[2021-10-12] MEDS ORDERED: glycopyrrolate 0.2mg/ml inj ONE (13:33)
[2021-10-12] MEDS ORDERED: gabapentin 300mg capsule PO PRN (13:35)
[2021-10-12] MEDS ORDERED: traMADol 50MG tablet PO PRN (13:35)
[2021-10-12] MEDS ORDERED: fluticasone nasal spray 16GM bottle NS PRN (13:35)
[2021-10-12] MEDS ORDERED: cyclobenzaprine 10mg tablet PO PRN (13:35)
[2021-10-12] MEDS ORDERED: dexamethasone sod phosphate 4mg/ml inj. ONE (13:36)
--- NOTE | 2021-10-12 13:38 | NUR ---
Received from OR via SURGICAL BED , accompanied by Anesthesiologist JIN and report given by Anesthesiolgist. PATIENT WITH 20G PIV IN LEFT UE RUNNING LR AT 100. WOUND VAC PRESENT AT 150 MM HG. PATIENT ON 10L MASK ON 100% SATURATIONS. Addendum: 10/12/21 at 1351 by Emeka Lima RN, RN Amended: Links added.
[2021-10-12] MEDS ORDERED: proCHLORperazine 10 MG/2 ml inj IV PRN (13:50)
[2021-10-12] MEDS ORDERED: hydrALAZINE 20mg/ml inj. IV PRN (13:50)
[2021-10-12] MEDS ORDERED: acetaminophen 1,000mg/100ml IV 100 ML IV PRN (13:50)
[2021-10-12] MEDS ORDERED: ringers solution, lacted 1,000 ML IV SCH (13:50)
[2021-10-12] MEDS ORDERED: labetalol 20mg/4ml (5mg/ml) syringe IV PRN (13:50)
[2021-10-12] MEDS ORDERED: meperidine/PF 25mg/ml syringe IV PRN ×3 (13:50)
--- NOTE | 2021-10-12 14:25 | NUR ---
Patient in room . I have received report from HAZEL DAVIS, and had the opportunity to ask questions and assume patient care.
--- NOTE | 2021-10-12 14:28 | NUR ---
PATIENT HAS MET ALL CRITERIA FOR TRANSFER TO THE [facility]LO[facility]. VSS. DRESSINGS INTACT. BED LOW, CALL LIGHT PRESENT AND 2 RAILS UP. RN PRESENT TO ACCEPT CARE OF PATIENT AND REPORT HAS BEEN CALLED. ALL QUESTIONS ANSWERED TO ACCEPTING RN. DEMETRIUS WOO RN PRESENT TO ASSIST IN SET UP OF VS AND ASSESS PATIENT. Addendum: 10/12/21 at 1446 by Emeka Koo - HAZEL RN Amended: Links added.
[2021-10-12 15:48] LABS: BASOPHILS % (AUTO) 0.3 % (0-1); EOSINOPHILS % (AUTO) 0.6 % (0-6); HEMATOCRIT 39.1 % (42.0-52.0); HEMOGLOBIN 12.7 g/dl (14.0-17.9); LYMPHOCYTES # (AUTO) 0.6 X10'3 (1.1-4.8); LYMPHOCYTES % (AUTO) 9.1 % (21-51); MEAN CORPUSCULAR HEMOGLOBIN 27.7 PG (27.0-31.0); MEAN CORPUSCULAR HGB CONC 32.4 g/dL (33.0-36.5); MEAN CORPUSCULAR VOLUME 85.6 FL (78-98); MEAN PLATELET VOLUME 7.8 FL (7.4-10.4); MONOCYTES # (AUTO) 0.3 X10'3 (0-0.9); MONOCYTES % (AUTO) 3.9 % (2-12); NEUTROPHILS # (AUTO) 5.9 X10'3 (1.8-7.7); NEUTROPHILS % (AUTO) 86.1 % (42-75); PLATELET COUNT 163 X10'3 (140-440); RED BLOOD COUNT 4.57 X10'6 (4.70-6.10); RED CELL DISTRIBUTION WIDTH 15.1 % (11.5-14.5); WHITE BLOOD COUNT 6.8 X10'3 (4.5-11.0)
[2021-10-12 16:01] LABS: ALBUMIN 2.4 G/DL (3.4-5.0); ANION GAP 7 (8-16); BLOOD UREA NITROGEN 16 MG/DL (7-18); CALCIUM 8.4 MG/DL (8.5-10.1); CHLORIDE 106 MMOL/L (99-107); CREATININE 0.64 MG/DL (0.60-1.10); GLUCOSE 101 MG/DL (70-104); POTASSIUM 3.8 MMOL/L (3.5-5.1); SODIUM 140 MMOL/L (135-145); TOTAL CARBON DIOXIDE 27.3 MMOL/L (24-32); eGFR > 90 ML/MIN
[2021-10-12] MEDS: ceFAZolin inj. 1,000 MG in dextrose 5%-water 50ml 50 ML IV SCH (16:56)
--- NOTE | 2021-10-12 18:05 | NUR ---
Patient in room MED 312. I have received report from OH OLIVA and had the opportunity to ask questions and assume patient care.
[2021-10-12] MEDS: lactobacillus rhamnosus 10,000 MMU CELLS/CAPSULE PO SCH (19:31)
[2021-10-12] MEDS: OMEGA-3/DHA/EPA/FISH OIL 1 EACH CAPSULE.DR PO SCH (19:31)
[2021-10-12] MEDS: metoprolol tartrate 50mg tablet PO SCH (19:32)
[2021-10-12] MEDS: gabapentin 300mg capsule PO SCH (19:32)
[2021-10-12] MEDS: aspirin 81mg, enteric-coated 1 TAB TABLET.DR PO SCH (19:33)
[2021-10-12] MEDS: docusate sod 100mg capsule PO SCH (19:33)
[2021-10-12] MEDS: atorvastatin 20mg tablet PO SCH (20:49)
[2021-10-12] MEDS ORDERED: non-formulary drug (Meloxicam 1 TAB) PO SCH (21:00)
[2021-10-12] MEDS: insulin glargine (Lantus) pen - multi-dose SQ SCH (21:01)
[2021-10-12] MEDS: zolpidem 5mg tablet PO PRN (21:06)
--- NOTE | 2021-10-13 00:05 | NUR ---
PATIENTS TO BRING IN JARDIANCE IN AM, PROVIDER PILY CLARIFIED ORDERS; KEEP PATIENT ON HOME DIABETIC MEDS-CHECK BLOOD GLUCOSE ACHS- LANTUS 70 UNITS BID GIVE, NO HUMALOG, ORAL GLYCEMICS JARDIANCE AND GLYBURIDE ONLY, PER PILY.GIRISH OLIVA
[2021-10-13] MEDS: ceFAZolin inj. 1,000 MG in dextrose 5%-water 50ml 50 ML IV SCH (00:22)
[2021-10-13 02:00] VITALS: BP 105/65
[2021-10-13 06:00] VITALS: BP 110/71
--- NOTE | 2021-10-13 06:45 | NUR ---
Problems reprioritized. Patient report given, questions answered & plan of care reviewed with Montse OLIVA.
[2021-10-13] MEDS ORDERED: clopidogrel 75mg tablet PO SCH (08:00)
[2021-10-13] MEDS ORDERED: EMPAGLIFLOZIN 25 MG PO SCH (08:00)
[2021-10-13] MEDS: OMEGA-3/DHA/EPA/FISH OIL 1 EACH CAPSULE.DR PO SCH ×2 (08:36→21:11)
[2021-10-13] MEDS: fenofibrate 145mg tablet PO SCH (08:36)
[2021-10-13] MEDS: gabapentin 300mg capsule PO SCH ×2 (08:37→21:08)
[2021-10-13] MEDS: metoprolol tartrate 50mg tablet PO SCH ×2 (08:37→20:00)
[2021-10-13] MEDS: lactobacillus rhamnosus 10,000 MMU CELLS/CAPSULE PO SCH ×2 (08:38→21:10)
[2021-10-13] MEDS: cetirizine 10mg tablet PO SCH (08:38)
[2021-10-13] MEDS: docusate sod 100mg capsule PO SCH ×2 (08:38→21:12)
[2021-10-13] MEDS: aspirin 81mg, enteric-coated 1 TAB TABLET.DR PO SCH ×2 (08:38→21:08)
[2021-10-13] MEDS: multivitamins, therapeutics tablet PO SCH (08:38)
[2021-10-13] MEDS: insulin glargine (Lantus) pen - multi-dose SQ SCH (08:41)
[2021-10-13 10:00] VITALS: BP 103/76
--- NOTE | 2021-10-13 10:04 | NUR ---
Pt with T2DM, well controlled with A1c 7.0%. Pt seen by GHADA for protein and DM educations at previous admit 09/26. No further education planned at this time. Noted pt with several food preferences at last admit: no milk to drink, ice cream, lettuce, turkey, tea, chicken, oatmeal, peas, or carrots; vanilla almond milk WB, salsa WB. Will resume food preferences this admit. Addendum: 10/13/21 at [address] Amended: Links added.
[2021-10-13] MEDS: levoFLOXACIN 750MG TABLET PO SCH (11:10)
[2021-10-13 14:19] LABS: ALBUMIN 2.5 G/DL (3.4-5.0); ANION GAP 12 (8-16); BLOOD UREA NITROGEN 16 MG/DL (7-18); CALCIUM 8.7 MG/DL (8.5-10.1); CHLORIDE 106 MMOL/L (99-107); GLUCOSE 73 MG/DL (70-104); POTASSIUM 3.6 MMOL/L (3.5-5.1); SODIUM 144 MMOL/L (135-145); TOTAL CARBON DIOXIDE 25.6 MMOL/L (24-32); eGFR > 90 ML/MIN
--- NOTE | 2021-10-13 14:40 | NUR ---
conversation with DR Talbot. He advised to hold the plavix in light of impending surgery on Friday.
[2021-10-13] MEDS: mupirocin 2% nasal ointment 1gm UD NS SCH ×2 (14:51→21:12)
[2021-10-13] MEDS ORDERED: dextrose ORAL solution 15 GM/59 ML bottle PO PRN ×3 (17:15→18:50)
[2021-10-13] MEDS ORDERED: dextrose 50%-water 50ml dispensing syringe IV PRN ×4 (17:15→18:50)
[2021-10-13] MEDS ORDERED: glucagon, human recombinant 1mg kit SUBCUT PRN ×2 (17:15→18:50)
[2021-10-13 18:00] VITALS: BP 115/59
--- NOTE | 2021-10-13 18:24 | NUR ---
Patient in room MED 312. I have received report from SO OLIVA and had the opportunity to ask questions and assume patient care.
[2021-10-13] MEDS ORDERED: MESSAGE TO PHARMACY PO ONE (18:50)
[2021-10-13] MEDS ORDERED: insulin regular, human U-100 3ml vial - multi-dose SQ SCH (18:50)
[2021-10-13] MEDS ORDERED: insulin Lispro (HumaLOG) vial - multi-dose SQ SCH (18:50)
[2021-10-13] MEDS: HYDROcodone/acetaminophen 10/325mg tab PO PRN (19:46)
[2021-10-13] MEDS ORDERED: insulin glargine (Lantus) pen - multi-dose SQ SCH (21:00)
[2021-10-13] MEDS: dextrose ORAL solution 15 GM/59 ML bottle PO PRN ×2 (21:06→21:33)
[2021-10-13] MEDS: atorvastatin 20mg tablet PO SCH (21:10)
[2021-10-13] MEDS: zolpidem 5mg tablet PO PRN (21:20)
--- NOTE | 2021-10-13 21:48 | NUR ---
BLOOD GLUCOSE 53 AT 2100, FOLLOWED HYPOGLYCEMIC PROTOCOL. BLOOD GLUCOSE NOW 84
[2021-10-13 22:00] VITALS: BP 102/54
[2021-10-14 02:00] VITALS: BP 85/53
--- NOTE | 2021-10-14 06:30 | NUR ---
RECEIVED REPORT FROM HAZEL CLARK
--- NOTE | 2021-10-14 06:59 | NUR ---
Problems reprioritized. Patient report given, questions answered & plan of care reviewed with PATI OLIVA.
[2021-10-14] MEDS: gabapentin 300mg capsule PO SCH (07:28)
[2021-10-14] MEDS: HYDROcodone/acetaminophen 10/325mg tab PO PRN ×4 (07:30→22:00)
[2021-10-14] MEDS: dextrose ORAL solution 15 GM/59 ML bottle PO PRN (07:40)
[2021-10-14] MEDS: fenofibrate 145mg tablet PO SCH (07:40)
[2021-10-14] MEDS: lactobacillus rhamnosus 10,000 MMU CELLS/CAPSULE PO SCH ×2 (07:41→21:58)
[2021-10-14] MEDS: multivitamins, therapeutics tablet PO SCH (07:41)
[2021-10-14] MEDS: OMEGA-3/DHA/EPA/FISH OIL 1 EACH CAPSULE.DR PO SCH ×2 (07:41→21:58)
[2021-10-14] MEDS: cetirizine 10mg tablet PO SCH (07:41)
[2021-10-14] MEDS: aspirin 81mg, enteric-coated 1 TAB TABLET.DR PO SCH ×2 (07:42→20:00)
[2021-10-14] MEDS: docusate sod 100mg capsule PO SCH ×2 (07:42→22:00)
[2021-10-14] MEDS: metoprolol tartrate 50mg tablet PO SCH ×2 (07:45→21:59)
[2021-10-14] MEDS: mupirocin 2% nasal ointment 1gm UD NS SCH ×2 (07:45→22:23)
[2021-10-14] MEDS: levoFLOXACIN 750MG TABLET PO SCH (12:03)
[2021-10-14 12:57] VITALS: BP 123/62
[2021-10-14 14:02] LABS: ALBUMIN 2.4 G/DL (3.4-5.0); ANION GAP 9 (8-16); BLOOD UREA NITROGEN 19 MG/DL (7-18); BUN/CREATININE RATIO 28.4 (5.4-32.0); CALCIUM 8.5 MG/DL (8.5-10.1); CHLORIDE 107 MMOL/L (99-107); CREATININE 0.67 MG/DL (0.60-1.10); GLUCOSE 122 MG/DL (70-104); SODIUM 142 MMOL/L (135-145); TOTAL CARBON DIOXIDE 25.6 MMOL/L (24-32); eGFR > 90 ML/MIN
[2021-10-14 15:49] VITALS: BP 128/78
--- NOTE | 2021-10-14 17:13 | NUR ---
sent a page to immigration case manager in regards to pt transfer to [facility] b/c tasha called me with number of [phone] to talk to case manger about pt transfer immigration case manager told me that she called the number and that person to talk to at [facility] was out of the office and that our immigration case manager has not been able to get a hold of tasha tasha said that pt needs to have a d/c order from md and that they were faxing paperwork to [facility]ce unit at [phone] for d/c that never came through fax tasha said that pt, md and sup needed to sign additional paperwork stating that after procedure at [facility] that [facility] is willing to re-admit pt
[2021-10-14 18:00] VITALS: BP 113/58
--- NOTE | 2021-10-14 18:47 | NUR ---
gave report to february,
[2021-10-14] MEDS: zolpidem 5mg tablet PO PRN (21:58)
[2021-10-14] MEDS: atorvastatin 20mg tablet PO SCH (21:59)
[2021-10-14 22:00] VITALS: BP 108/76
[2021-10-15 02:00] VITALS: BP 133/64
[2021-10-15] MEDS: HYDROcodone/acetaminophen 10/325mg tab PO PRN (03:05)
[2021-10-15 06:00] VITALS: BP 121/69
--- NOTE | 2021-10-15 06:47 | NUR ---
Patient in room MED 312. I have received report from HAZEL CHAMPAGNE, and had the opportunity to ask questions and assume patient care.
[2021-10-15] MEDS: mupirocin 2% nasal ointment 1gm UD NS SCH (08:51)
[2021-10-15] MEDS: fenofibrate 145mg tablet PO SCH (08:52)
[2021-10-15] MEDS: docusate sod 100mg capsule PO SCH (08:52)
[2021-10-15] MEDS: OMEGA-3/DHA/EPA/FISH OIL 1 EACH CAPSULE.DR PO SCH (08:52)
[2021-10-15] MEDS: multivitamins, therapeutics tablet PO SCH (08:52)
[2021-10-15] MEDS: lactobacillus rhamnosus 10,000 MMU CELLS/CAPSULE PO SCH (08:52)
[2021-10-15] MEDS: metoprolol tartrate 50mg tablet PO SCH (08:53)
[2021-10-15] MEDS: cetirizine 10mg tablet PO SCH (08:53)
[2021-10-15] MEDS: aspirin 81mg, enteric-coated 1 TAB TABLET.DR PO SCH (08:53)
--- NOTE | 2021-10-15 10:54 | NUR ---
Spoke with Mariana at Case Management. Mraiana stated that the discharging doctor needed to put the dictation through [facility]. I left Kris Bob a voicemail to relay the message.
[2021-10-15 11:00] VITALS: BP 122/85
--- NOTE | 2021-10-15 11:33 | NUR ---
DISCHARGE SUMMARY FAXED TO [facility] FAX [phone] PHONE [phone]
[2021-10-15] MEDS: levoFLOXACIN 750MG TABLET PO SCH (13:16)
--- NOTE | 2021-10-15 13:22 | NUR ---
Wound care came by to look at patient. He is being transferred to [facility] today. He has his home wound vac they will attach to for the transport to the new facility. Dr. Talbot has been in charge of his wound vac changes and has rounded on him today. If anything is need from wound care please let us know.
[2021-10-15 14:36] LABS: ALBUMIN 2.8 G/DL (3.4-5.0); ANION GAP 7 (8-16); BLOOD UREA NITROGEN 17 MG/DL (7-18); BUN/CREATININE RATIO 23.6 (5.4-32.0); CALCIUM 8.7 MG/DL (8.5-10.1); CHLORIDE 105 MMOL/L (99-107); CREATININE 0.72 MG/DL (0.60-1.10); GLUCOSE 157 MG/DL (70-104); POTASSIUM 4.2 MMOL/L (3.5-5.1); SODIUM 141 MMOL/L (135-145); TOTAL CARBON DIOXIDE 29.1 MMOL/L (24-32); eGFR > 90 ML/MIN
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
== END 2021-10-15 13:30 | disposition short-term general hospital (02) | DRG 857 ==
LOC: PAS 08:53 → MED 3N 13:32
PROVIDERS: ADMIT Thoracic Surgery (Cardiothoracic Vascular Surgery); ATTEND Thoracic Surgery (Cardiothoracic Vascular Surgery)
PROC: 0PB00ZZ Excision of Sternum, Open Approach (ICD-10-PCS; principal; 2021-10-12 12:22)
DX: T81.49XA Infection following a procedure, other surgical site, initial encounter (principal); T81.31XA Disruption of external operation (surgical) wound, not elsewhere classified, initial encounter; Z20.822 Contact with and (suspected) exposure to COVID-19; Y83.8 Other surgical procedures as the cause of abnormal reaction of the patient, or of later complication, without mention of misadventure at the time of the procedure; E11.9 Type 2 diabetes mellitus without complications; E78.5 Hyperlipidemia, unspecified; E66.9 Obesity, unspecified; G47.33 Obstructive sleep apnea (adult) (pediatric); K21.9 Gastro-esophageal reflux disease without esophagitis; I10 Essential (primary) hypertension; I25.10 Atherosclerotic heart disease of native coronary artery without angina pectoris; Z95.1 Presence of aortocoronary bypass graft; Z95.5 Presence of coronary angioplasty implant and graft; Y92.89 Other specified places as the place of occurrence of the external cause; Z68.36 Body mass index [BMI] 36.0-36.9, adult
CPT/HCPCS: Z7506; Z7508; 36415; 71045; 80048; 80053; 82948; 85025; 85610; 85730; 86885; 86920; 87070; 87075; 87081; 87635; 97116; 97161; 97530; A4618; A6550; A7000; C9803; G0378; J0690; J1100; J1815; J2250; J2405; J2704; J2710; J3010; J3490; J7060; S0020

== ENCOUNTER 2021-10-22 23:04 | Inpatient (IN) | payer BC ==
[~2021-10-22] VITALS: Ht 172.7 cm; Wt 108.0 kg
--- NOTE | 2021-10-22 23:23 | NUR ---
PT ROOMED IN BED 2. ASSUMED CARE OF PT.
[2021-10-22] MEDS ORDERED: normal saline 1000ML IV soln IVB ONE (23:45)
[2021-10-23 00:20] LABS: MEAN CORPUSCULAR HGB CONC 33.5 g/dL (33.0-36.5); RED BLOOD COUNT 4.38 X10'6 (4.70-6.10)
[2021-10-23 00:22] LABS: BASOPHILS % (AUTO) 0.1 % (0-1); EOSINOPHILS # (AUTO) 0.1 X10'3 (0-0.9); EOSINOPHILS % (AUTO) 0.6 % (0-6); HEMATOCRIT 36.8 % (42.0-52.0); HEMOGLOBIN 12.3 g/dl (14.0-17.9); LYMPHOCYTES # (AUTO) 0.9 X10'3 (1.1-4.8); LYMPHOCYTES % (AUTO) 9.2 % (21-51); MEAN CORPUSCULAR HEMOGLOBIN 28.2 PG (27.0-31.0); MEAN CORPUSCULAR VOLUME 83.9 FL (78-98); MEAN PLATELET VOLUME 8.4 FL (7.4-10.4); MONOCYTES # (AUTO) 1.1 X10'3 (0-0.9); MONOCYTES % (AUTO) 11.2 % (2-12); NEUTROPHILS # (AUTO) 7.7 X10'3 (1.8-7.7); NEUTROPHILS % (AUTO) 78.9 % (42-75); PLATELET COUNT 182 X10'3 (140-440); RED CELL DISTRIBUTION WIDTH 15.2 % (11.5-14.5); WHITE BLOOD COUNT 9.7 X10'3 (4.5-11.0)
[2021-10-23 00:32] LABS: ALANINE AMINOTRANSFERASE 20 U/L (12-78); ALBUMIN 2.6 G/DL (3.4-5.0); ALBUMIN/GLOBULIN RATIO 0.8 (1.1-1.5); ALKALINE PHOSPHATASE 79 IU/L (46-116); ANION GAP 10 (8-16); ASPARTATE AMINO TRANSFERASE 18 U/L (10-37); BILIRUBIN,TOTAL 0.4 MG/DL (0.1-1.0); BLOOD UREA NITROGEN 18 MG/DL (7-18); BUN/CREATININE RATIO 24.7 (5.4-32.0); CALCIUM 8.1 MG/DL (8.5-10.1); CHLORIDE 105 MMOL/L (99-107); CREATININE 0.73 MG/DL (0.60-1.10); GLUCOSE 127 MG/DL (70-104); POTASSIUM 3.8 MMOL/L (3.5-5.1); SODIUM 140 MMOL/L (135-145); TOTAL CARBON DIOXIDE 25.2 MMOL/L (24-32); TOTAL PROTEIN 5.9 G/DL (6.4-8.2); eGFR > 90 ML/MIN
[2021-10-23 01:07] LABS: TOTAL CELLS COUNTED 100
[2021-10-23 01:08] LABS: PLATELET ESTIMATE NORMAL
[2021-10-23] MEDS ORDERED: acetaminophen 325mg tablet PO ONE (02:05)
[2021-10-23 02:11] LABS: CLARITY,URINE CLEAR (Clear); COLOR,URINE YELLOW (Yellow); GLUCOSE, URINE NEGATIVE (Neg); KETONES,URINE TRACE mg/dl (Neg); LEUKOCYTE ESTERASE ,URINE NEGATIVE (Neg); NITRITES, URINE NEGATIVE (Neg); OCCULT BLOOD,URINE NEGATIVE (Neg); PROTEIN,URINE TRACE mg/dl (Neg); UROBILINOGEN,URINE 0.2 E.U/dL (0.2-1.0)
[2021-10-23 02:18] LABS: UA COLLECTION TYPE URINAL
[2021-10-23 02:22] LABS: RBC,URINE 0-2 /HPF (0-2); WBC,URINE 0-4 /HPF (0-4)
[2021-10-23 02:23] LABS: BACTERIA,URINE NONE SEEN /HPF (Neg); SQUAMOUS EPITHELIAL CELL,UR FEW /LPF (FEW)
[2021-10-23] MEDS ORDERED: HYDR-3972 PO (02:45)
[2021-10-23] MEDS ORDERED: vancomycin/NS 1 GM ADD-VANTAGE 250 ML IV ONE (02:45)
[2021-10-23] MEDS ORDERED: [UNRECOGNIZED DRUG - OTHER] (02:56)
[2021-10-23] MEDS ORDERED: magnesium Cl slow-release 64mg tablet PO PRN (03:15)
[2021-10-23] MEDS ORDERED: potassium CL 10mEq/100ml bag 100 ML IV PRN (03:15)
[2021-10-23] MEDS ORDERED: magnesium hydroxide 30ml (MOM) UD suspension PO PRN (03:15)
[2021-10-23] MEDS ORDERED: potassium Cl 20 mEq SR tablet PO PRN ×2 (03:15)
[2021-10-23] MEDS ORDERED: magnesium 2GM in 50ml NS 50 ML IV PRN (03:15)
[2021-10-23] MEDS ORDERED: magnesium 4gm in 100ml NS 100 ML IV PRN (03:15)
[2021-10-23] MEDS ORDERED: mag hydrox/Alum hydrox/simeth 30ml oral suspension PO PRN (03:15)
[2021-10-23] MEDS ORDERED: acetaminophen 325mg tablet PO PRN (03:15)
[2021-10-23] MEDS ORDERED: cyclobenzaprine 10mg tablet PO PRN (03:20)
[2021-10-23] MEDS ORDERED: dextrose ORAL solution 15 GM/59 ML bottle PO PRN (03:20)
[2021-10-23] MEDS ORDERED: dextrose 50%-water 50ml dispensing syringe IV PRN ×2 (03:20)
[2021-10-23] MEDS ORDERED: MESSAGE TO PHARMACY PO ONE (03:20)
[2021-10-23] MEDS ORDERED: glucagon, human recombinant 1mg kit SUBCUT PRN (03:20)
[2021-10-23 03:37] LABS: C-REACTIVE PROTEIN 2.86 MG/DL (0.0-0.5); MAGNESIUM 1.4 MG/DL (1.5-2.4)
[2021-10-23] MEDS ORDERED: LEVO750P7 IV (03:43)
[2021-10-23 07:10] VITALS: BP 133/73
[2021-10-23] MEDS: K and/or MAG REPLACEMENT MC SCH ×2 (08:00→20:00)
[2021-10-23] MEDS: levoFLOXACIN-Levaquin 750MG/D5 150 ML IV SCH (08:00)
[2021-10-23] MEDS: insulin glargine (Lantus) pen - multi-dose SQ SCH ×2 (08:00→20:00)
[2021-10-23] MEDS: cetirizine 10mg tablet PO SCH (09:04)
[2021-10-23] MEDS: lactobacillus rhamnosus 10,000 MMU CELLS/CAPSULE PO SCH ×2 (09:04→22:19)
[2021-10-23] MEDS: docusate sod 100mg capsule PO SCH ×2 (09:04→22:20)
[2021-10-23] MEDS: multivitamins, therapeutics tablet PO SCH (09:04)
[2021-10-23] MEDS: fenofibrate 145mg tablet PO SCH (09:04)
[2021-10-23] MEDS: aspirin 81mg, enteric-coated 1 TAB TABLET.DR PO SCH ×2 (09:04→22:20)
[2021-10-23] MEDS: metoprolol tartrate 50mg tablet PO SCH ×2 (09:04→22:20)
[2021-10-23] MEDS: heparin, porcine 5000 units/ml vial SQ SCH ×2 (09:05→15:26)
--- NOTE | 2021-10-23 10:04 | NUR ---
PAGER ID: [phone] MESSAGE: Room 309. Edmundo López. Pt requesting Lantus to be changed from 35u BID to 25u BID. AM blood sugar 67, 83. Thanks, Nelia [phone]
[2021-10-23 11:00] VITALS: BP 123/70
[2021-10-23 15:00] VITALS: BP 119/66
[2021-10-23] MEDS: VANCOmycin 1250MG/NS 250ml Bag 250 ML IV SCH (15:25)
[2021-10-23] MEDS: dextrose ORAL solution 15 GM/59 ML bottle PO PRN ×2 (17:43→18:00)
[2021-10-23 18:00] VITALS: BP 111/66
--- NOTE | 2021-10-23 18:39 | NUR ---
Problems reprioritized. Patient report given, questions answered & plan of care reviewed with HAZEL Busch.
[2021-10-23] MEDS ORDERED: insulin glargine (Lantus) pen - multi-dose SQ SCH (21:00)
[2021-10-23] MEDS: zolpidem 5mg tablet PO SCH (21:00)
[2021-10-23] MEDS: atorvastatin 20mg tablet PO SCH (21:00)
[2021-10-23 22:00] VITALS: BP 131/71
[2021-10-24 02:00] VITALS: BP 111/59
[2021-10-24] MEDS: VANCOmycin 1250MG/NS 250ml Bag 250 ML IV SCH ×3 (03:13→23:49)
[2021-10-24 06:30] VITALS: BP 127/72
[2021-10-24 06:36] LABS: BASOPHILS % (AUTO) 0.2 % (0-1); EOSINOPHILS # (AUTO) 0.2 X10'3 (0-0.9); EOSINOPHILS % (AUTO) 2.9 % (0-6); HEMATOCRIT 38.1 % (42.0-52.0); HEMOGLOBIN 12.5 g/dl (14.0-17.9); LYMPHOCYTES # (AUTO) 1.6 X10'3 (1.1-4.8); LYMPHOCYTES % (AUTO) 23.9 % (21-51); MEAN CORPUSCULAR HEMOGLOBIN 27.8 PG (27.0-31.0); MEAN CORPUSCULAR HGB CONC 32.7 g/dL (33.0-36.5); MEAN PLATELET VOLUME 8.5 FL (7.4-10.4); MONOCYTES # (AUTO) 0.7 X10'3 (0-0.9); MONOCYTES % (AUTO) 10.3 % (2-12); NEUTROPHILS # (AUTO) 4.2 X10'3 (1.8-7.7); NEUTROPHILS % (AUTO) 62.7 % (42-75); PLATELET COUNT 173 X10'3 (140-440); RED BLOOD COUNT 4.48 X10'6 (4.70-6.10); RED CELL DISTRIBUTION WIDTH 15.4 % (11.5-14.5); WHITE BLOOD COUNT 6.7 X10'3 (4.5-11.0)
[2021-10-24 07:18] LABS: ALANINE AMINOTRANSFERASE 14 U/L (12-78); ALBUMIN 2.4 G/DL (3.4-5.0); ALBUMIN/GLOBULIN RATIO 0.7 (1.1-1.5); ALKALINE PHOSPHATASE 72 IU/L (46-116); ANION GAP 10 (8-16); ASPARTATE AMINO TRANSFERASE 13 U/L (10-37); BILIRUBIN,TOTAL 0.5 MG/DL (0.1-1.0); BLOOD UREA NITROGEN 9 MG/DL (7-18); BUN/CREATININE RATIO 14.3 (5.4-32.0); CALCIUM 8.5 MG/DL (8.5-10.1); CHLORIDE 107 MMOL/L (99-107); CREATININE 0.63 MG/DL (0.60-1.10); GLUCOSE 93 MG/DL (70-104); POTASSIUM 3.6 MMOL/L (3.5-5.1); SODIUM 140 MMOL/L (135-145); TOTAL CARBON DIOXIDE 23.2 MMOL/L (24-32); TOTAL PROTEIN 5.9 G/DL (6.4-8.2); eGFR > 90 ML/MIN
[2021-10-24] MEDS ORDERED: cefazolin/dext.iso 2gm/50ml 50 ML IV ONE (07:55)
[2021-10-24] MEDS ORDERED: gabapentin 400mg capsule PO ONE (07:55)
[2021-10-24] MEDS: K and/or MAG REPLACEMENT MC SCH ×2 (08:00→20:00)
[2021-10-24] MEDS: insulin glargine (Lantus) pen - multi-dose SQ SCH (08:00)
[2021-10-24] MEDS: multivitamins, therapeutics tablet PO SCH (08:17)
[2021-10-24] MEDS: fenofibrate 145mg tablet PO SCH (08:17)
[2021-10-24] MEDS: lactobacillus rhamnosus 10,000 MMU CELLS/CAPSULE PO SCH ×2 (08:17→20:58)
[2021-10-24] MEDS: levoFLOXACIN-Levaquin 750MG/D5 150 ML IV SCH (08:17)
[2021-10-24] MEDS: aspirin 81mg, enteric-coated 1 TAB TABLET.DR PO SCH ×2 (08:17→20:53)
[2021-10-24] MEDS: metoprolol tartrate 50mg tablet PO SCH ×2 (08:18→20:56)
[2021-10-24] MEDS: heparin, porcine 5000 units/ml vial SQ SCH ×4 (08:18→23:32)
[2021-10-24] MEDS: docusate sod 100mg capsule PO SCH ×2 (08:18→20:57)
[2021-10-24] MEDS: cetirizine 10mg tablet PO SCH (08:18)
[2021-10-24] MEDS: HYDROcodone/acetaminophen 10/325mg tab PO PRN ×2 (08:29→15:28)
--- NOTE | 2021-10-24 10:55 | NUR ---
Pt admit for sternal wound infection s/p recent CABG. CT showed some bone lysis consistent with ongoing osteomyelitis and pt pending sternal wound debridement with revision and closure per PA note. Pt previously admitted and seen by RD for written and verbal protein and DM education (A1c 7.0%) with RD contact information. No further education planned at this time. Pt currently on a CHO controlled diet and eating well, documented with 100% PO intake. Noted pt with several food preferences at previous admit: no milk to drink, ice cream, lettuce, turkey, tea, chicken, oatmeal, peas, or carrots; vanilla almond milk WB, salsa WB. Will resume food preferences this admit. Will continue to follow and make recommendations as appropriate. Recommendations: 1) Consider liberalizing to regular diet in view of BG range 53-127 mg/dL throughout LOS with A1c 7.0% 2) [place] food preferences: no milk to drink, ice cream, lettuce, turkey, tea, chicken, oatmeal, peas, or carrots; vanilla almond milk WB, salsa WB 3) Monitor need for additional protein for satiety; monitor need for Franco ONS BID to assist with wound healing 4) Routine bowel care 5) Scaled weight this admit; weekly scaled weights thereafter Addendum: 10/24/21 at [address] Amended: Links added.
[2021-10-24 11:30] VITALS: BP 144/67
[2021-10-24] MEDS ORDERED: VANCOMYCIN LEVEL IV ONE (14:30)
[2021-10-24 15:00] VITALS: BP 116/64
--- NOTE | 2021-10-24 18:28 | NUR ---
Problems reprioritized. Patient report given, questions answered & plan of care reviewed with HAZEL Busch.
[2021-10-24] MEDS: atorvastatin 20mg tablet PO SCH (20:40)
[2021-10-24] MEDS: zolpidem 5mg tablet PO SCH (20:53)
[2021-10-24 21:16] VITALS: BP 135/79
[2021-10-25] VITALS (19 sets, daily range): BP systolic 89–143; BP diastolic 56–77
[2021-10-25] MEDS: ondansetron/PF 4mg/2ml inj IV PRN ×2 (04:15→15:43)
[2021-10-25] MEDS: HYDROcodone/acetaminophen 10/325mg tab PO PRN ×2 (04:28→23:52)
[2021-10-25 05:54] LABS: BASOPHILS % (AUTO) 0.2 % (0-1); EOSINOPHILS # (AUTO) 0.2 X10'3 (0-0.9); EOSINOPHILS % (AUTO) 2.9 % (0-6); HEMATOCRIT 36.7 % (42.0-52.0); LYMPHOCYTES # (AUTO) 1.3 X10'3 (1.1-4.8); LYMPHOCYTES % (AUTO) 24.3 % (21-51); MEAN CORPUSCULAR HEMOGLOBIN 27.7 PG (27.0-31.0); MEAN CORPUSCULAR HGB CONC 32.8 g/dL (33.0-36.5); MEAN CORPUSCULAR VOLUME 84.4 FL (78-98); MEAN PLATELET VOLUME 8.8 FL (7.4-10.4); MONOCYTES # (AUTO) 0.5 X10'3 (0-0.9); NEUTROPHILS # (AUTO) 3.3 X10'3 (1.8-7.7); NEUTROPHILS % (AUTO) 63.6 % (42-75); PLATELET COUNT 159 X10'3 (140-440); RED BLOOD COUNT 4.35 X10'6 (4.70-6.10); RED CELL DISTRIBUTION WIDTH 15.4 % (11.5-14.5); WHITE BLOOD COUNT 5.2 X10'3 (4.5-11.0)
[2021-10-25 06:01] LABS: ALANINE AMINOTRANSFERASE 19 U/L (12-78); ALBUMIN 2.3 G/DL (3.4-5.0); ALBUMIN/GLOBULIN RATIO 0.7 (1.1-1.5); ALKALINE PHOSPHATASE 76 IU/L (46-116); ANION GAP 9 (8-16); ASPARTATE AMINO TRANSFERASE 22 U/L (10-37); BILIRUBIN,TOTAL 0.3 MG/DL (0.1-1.0); BLOOD UREA NITROGEN 12 MG/DL (7-18); BUN/CREATININE RATIO 21.8 (5.4-32.0); CALCIUM 8.1 MG/DL (8.5-10.1); CHLORIDE 106 MMOL/L (99-107); CREATININE 0.55 MG/DL (0.60-1.10); GLUCOSE 191 MG/DL (70-104); POTASSIUM 3.7 MMOL/L (3.5-5.1); SODIUM 141 MMOL/L (135-145); TOTAL CARBON DIOXIDE 26.3 MMOL/L (24-32); TOTAL PROTEIN 5.7 G/DL (6.4-8.2); eGFR > 90 ML/MIN
[2021-10-25] MEDS: lactobacillus rhamnosus 10,000 MMU CELLS/CAPSULE PO SCH ×2 (08:00→20:00)
[2021-10-25] MEDS: heparin, porcine 5000 units/ml vial SQ SCH ×2 (08:00→16:00)
[2021-10-25] MEDS: multivitamins, therapeutics tablet PO SCH (08:00)
[2021-10-25] MEDS: fenofibrate 145mg tablet PO SCH (08:00)
[2021-10-25] MEDS: levoFLOXACIN-Levaquin 750MG/D5 150 ML IV SCH (08:00)
[2021-10-25] MEDS: K and/or MAG REPLACEMENT MC SCH ×2 (08:00→20:00)
[2021-10-25] MEDS: docusate sod 100mg capsule PO SCH ×2 (08:00→20:00)
--- NOTE | 2021-10-25 08:00 | NUR ---
Per brittany Nicloe to only give ASA, lopressor, zyrtec, vanco this AM. Miss dose the rest.
[2021-10-25] MEDS: VANCOmycin 1250MG/NS 250ml Bag 250 ML IV SCH ×3 (08:15→23:53)
[2021-10-25] MEDS: cetirizine 10mg tablet PO SCH (08:18)
[2021-10-25] MEDS: aspirin 81mg, enteric-coated 1 TAB TABLET.DR PO SCH ×2 (08:18→20:00)
[2021-10-25] MEDS: metoprolol tartrate 50mg tablet PO SCH ×2 (08:19→20:00)
[2021-10-25] MEDS ORDERED: ceFAZolin 1000mg inj ONE ×3 (11:55→13:38)
[2021-10-25] MEDS ORDERED: BUPIVAcaine 0.5% inj/PF 30 ML ONE (11:55)
--- NOTE | 2021-10-25 12:00 | NUR ---
pt taken to OR
[2021-10-25] MEDS ORDERED: sevoflurane 250ml liquid IH ONE (12:49)
[2021-10-25] MEDS ORDERED: fentaNYL /PF 50mcg/ml 5ml ampule ONE (12:51)
[2021-10-25] MEDS ORDERED: propofol inj 20 ML IV ONE (12:51)
[2021-10-25] MEDS ORDERED: rocuronium 10mg/ml inj IV ONE (12:51)
[2021-10-25] MEDS ORDERED: midazolam 1 mg/ML 2ml injection ONE (12:51)
[2021-10-25] MEDS ORDERED: ePHEDrine 50MG/ML INJ. ONE (14:08)
[2021-10-25] MEDS ORDERED: ringers solution, lacted 1,000 ML IV SCH (14:15)
[2021-10-25] MEDS ORDERED: proCHLORperazine 10 MG/2 ml inj IV PRN (14:15)
[2021-10-25] MEDS ORDERED: meperidine/PF 25mg/ml syringe IV PRN ×3 (14:15)
[2021-10-25] MEDS ORDERED: morphine 2 MG/ML inj. syringe IV PRN ×2 (14:15→15:00)
[2021-10-25] MEDS ORDERED: ondansetron/PF 4mg/2ml inj IV PRN (14:15)
[2021-10-25] MEDS ORDERED: VANCOMYCIN LEVEL IV ONE (14:30)
[2021-10-25] MEDS ORDERED: glycopyrrolate 0.2mg/ml inj ONE (14:55)
[2021-10-25] MEDS ORDERED: neostigmine methylsulfate 1 MG/ML 10ml vial ONE (14:55)
[2021-10-25] MEDS ORDERED: acetaminophen 325mg tablet PO PRN (15:00)
[2021-10-25] MEDS ORDERED: bisacodyl 10mg suppository rectal RC PRN (15:00)
[2021-10-25] MEDS ORDERED: magnesium citrate 296ml oral solution PO PRN (15:00)
[2021-10-25] MEDS ORDERED: morphine 4 MG/ML inj SYRINge IV PRN (15:00)
--- NOTE | 2021-10-25 15:00 | NUR ---
Received from OR via , accompanied by Anesthesiologist and report given by Anesthesiolgist.
--- NOTE | 2021-10-25 15:00 | NUR ---
PATIENT WAKING UP , DENIES PAIN, V/S WNL, CSM INTACT, BG 134, PROVENA DRESSING MID CHEST CDI NO LEAKS DETECTED, AND 2 GENI DRAINS TO Y PORT TO DRAIN W/ 20CM SUCTION NO LEAKS DETECTED. PICC TO RUE AND ART LINE TO LUE
--- NOTE | 2021-10-25 15:40 | NUR ---
PATIENT A&OX4 , DENIES PAIN, V/S WNL, CSM INTACT, BG 134, PROVENA DRESSING MID CHEST CDI NO LEAKS DETECTED, AND 2 GENI DRAINS TO Y PORT TO DRAIN W/ 20CM SUCTION NO LEAKS DETECTED. PICC TO RUE AND ART LINE D/C PER DR BENITEZ VERBAL ORDER. PATIENT TAKEN TO 309 WITH ALL BELONGINGS AND HOOKED UP TO MONITORS IN ROOM AND REPORT GIVEN TO RN WHO HAS TAKEN OVER PATIENT CARE..
[2021-10-25] MEDS: ceFAZolin/D5W- 1GM premix 50 ML IV SCH (15:59)
--- NOTE | 2021-10-25 18:39 | NUR ---
Problems reprioritized. Patient report given, questions answered & plan of care reviewed with HAZEL Busch.
[2021-10-25] MEDS: morphine 4 MG/ML inj SYRINge IV PRN (18:53)
[2021-10-25] MEDS: mupirocin 2% nasal ointment 1gm UD NS SCH (20:00)
[2021-10-25] MEDS: zolpidem 5mg tablet PO SCH (20:50)
[2021-10-25] MEDS: atorvastatin 20mg tablet PO SCH (20:50)
[2021-10-25] MEDS: gabapentin 300mg capsule PO SCH (20:51)
[2021-10-26] VITALS (7 sets, daily range): BP systolic 97–118; BP diastolic 49–65
[2021-10-26] MEDS: heparin, porcine 5000 units/ml vial SQ SCH ×3 (00:09→17:27)
[2021-10-26] MEDS: ceFAZolin/D5W- 1GM premix 50 ML IV SCH ×3 (01:28→17:26)
[2021-10-26] MEDS: ondansetron/PF 4mg/2ml inj IV PRN (03:09)
[2021-10-26] MEDS: morphine 4 MG/ML inj SYRINge IV PRN (03:10)
[2021-10-26 05:46] LABS: BASOPHILS % (AUTO) 0.3 % (0-1); EOSINOPHILS % (AUTO) 0.2 % (0-6); HEMATOCRIT 32.3 % (42.0-52.0); LYMPHOCYTES # (AUTO) 1.2 X10'3 (1.1-4.8); LYMPHOCYTES % (AUTO) 17.2 % (21-51); MEAN CORPUSCULAR HEMOGLOBIN 28.5 PG (27.0-31.0); MEAN CORPUSCULAR HGB CONC 34.1 g/dL (33.0-36.5); MEAN CORPUSCULAR VOLUME 83.4 FL (78-98); MEAN PLATELET VOLUME 8.3 FL (7.4-10.4); MONOCYTES # (AUTO) 0.7 X10'3 (0-0.9); MONOCYTES % (AUTO) 9.9 % (2-12); NEUTROPHILS # (AUTO) 4.9 X10'3 (1.8-7.7); NEUTROPHILS % (AUTO) 72.4 % (42-75); PLATELET COUNT 212 X10'3 (140-440); RED BLOOD COUNT 3.87 X10'6 (4.70-6.10); RED CELL DISTRIBUTION WIDTH 15.1 % (11.5-14.5); WHITE BLOOD COUNT 6.8 X10'3 (4.5-11.0)
[2021-10-26 05:57] LABS: ALANINE AMINOTRANSFERASE 20 U/L (12-78); ALBUMIN 2.3 G/DL (3.4-5.0); ALBUMIN/GLOBULIN RATIO 0.7 (1.1-1.5); ALKALINE PHOSPHATASE 67 IU/L (46-116); ANION GAP 9 (8-16); ASPARTATE AMINO TRANSFERASE 22 U/L (10-37); BILIRUBIN,TOTAL 0.5 MG/DL (0.1-1.0); BLOOD UREA NITROGEN 17 MG/DL (7-18); BUN/CREATININE RATIO 23.6 (5.4-32.0); CALCIUM 7.9 MG/DL (8.5-10.1); CHLORIDE 105 MMOL/L (99-107); CREATININE 0.72 MG/DL (0.60-1.10); GLUCOSE 182 MG/DL (70-104); POTASSIUM 4.1 MMOL/L (3.5-5.1); SODIUM 140 MMOL/L (135-145); TOTAL CARBON DIOXIDE 26.4 MMOL/L (24-32); TOTAL PROTEIN 5.5 G/DL (6.4-8.2); VANCOMYCIN,TROUGH 14.3 UG/ML (6.0-14.0); eGFR > 90 ML/MIN
[2021-10-26] MEDS ORDERED: VANCOMYCIN LEVEL IV ONE (06:30)
[2021-10-26] MEDS: K and/or MAG REPLACEMENT MC SCH ×2 (08:00→20:00)
[2021-10-26] MEDS: gabapentin 300mg capsule PO SCH ×3 (08:40→20:32)
[2021-10-26] MEDS: lactobacillus rhamnosus 10,000 MMU CELLS/CAPSULE PO SCH ×2 (08:41→20:32)
[2021-10-26] MEDS: multivitamins, therapeutics tablet PO SCH (08:41)
[2021-10-26] MEDS: metoprolol tartrate 50mg tablet PO SCH ×2 (08:41→20:32)
[2021-10-26] MEDS: cetirizine 10mg tablet PO SCH (08:41)
[2021-10-26] MEDS: fenofibrate 145mg tablet PO SCH (08:41)
[2021-10-26] MEDS: docusate sod 100mg capsule PO SCH ×2 (08:41→20:32)
[2021-10-26] MEDS: aspirin 81mg, enteric-coated 1 TAB TABLET.DR PO SCH ×2 (08:42→20:33)
[2021-10-26] MEDS: VANCOmycin 1250MG/NS 250ml Bag 250 ML IV SCH ×3 (08:43→23:09)
[2021-10-26] MEDS: levoFLOXACIN-Levaquin 750MG/D5 150 ML IV SCH (08:44)
[2021-10-26] MEDS: mupirocin 2% nasal ointment 1gm UD NS SCH ×2 (08:52→20:35)
[2021-10-26] MEDS ORDERED: HYDROcodone/acetaminophen 10/325mg tab PO PRN (08:55)
[2021-10-26] MEDS ORDERED: VANC1FRO2 IV (09:06)
[2021-10-26] MEDS ORDERED: HYDR-3972 PO (09:06)
[2021-10-26] MEDS ORDERED: ketorolac tromethamine 15mg/ml inj. IM SCH (14:00)
[2021-10-26] MEDS: ketorolac tromethamine 15mg/ml inj. IV SCH ×2 (14:38→20:35)
[2021-10-26] MEDS: insulin Lispro (HumaLOG) vial - multi-dose SQ SCH (20:30)
[2021-10-26] MEDS: zolpidem 5mg tablet PO SCH (20:32)
[2021-10-26] MEDS: atorvastatin 20mg tablet PO SCH (20:38)
[2021-10-27] MEDS: heparin, porcine 5000 units/ml vial SQ SCH ×3 (00:52→18:13)
[2021-10-27] MEDS: ceFAZolin/D5W- 1GM premix 50 ML IV SCH (00:52)
[2021-10-27] MEDS: ketorolac tromethamine 15mg/ml inj. IV SCH ×4 (02:26→20:56)
[2021-10-27 02:29] VITALS: BP 123/67
[2021-10-27 04:37] LABS: BASOPHILS % (AUTO) 0.3 % (0-1); EOSINOPHILS # (AUTO) 0.1 X10'3 (0-0.9); EOSINOPHILS % (AUTO) 1.2 % (0-6); HEMATOCRIT 30.1 % (42.0-52.0); HEMOGLOBIN 10.1 g/dl (14.0-17.9); MEAN CORPUSCULAR HEMOGLOBIN 28.2 PG (27.0-31.0); MEAN CORPUSCULAR HGB CONC 33.5 g/dL (33.0-36.5); MEAN CORPUSCULAR VOLUME 84.2 FL (78-98); MEAN PLATELET VOLUME 8.3 FL (7.4-10.4); MONOCYTES # (AUTO) 0.6 X10'3 (0-0.9); MONOCYTES % (AUTO) 11.5 % (2-12); NEUTROPHILS # (AUTO) 3.5 X10'3 (1.8-7.7); PLATELET COUNT 154 X10'3 (140-440); RED BLOOD COUNT 3.58 X10'6 (4.70-6.10); RED CELL DISTRIBUTION WIDTH 15.2 % (11.5-14.5); WHITE BLOOD COUNT 5.2 X10'3 (4.5-11.0)
[2021-10-27 04:46] LABS: ALANINE AMINOTRANSFERASE 18 U/L (12-78); ALBUMIN 2.1 G/DL (3.4-5.0); ALBUMIN/GLOBULIN RATIO 0.7 (1.1-1.5); ALKALINE PHOSPHATASE 66 IU/L (46-116); ANION GAP 10 (8-16); ASPARTATE AMINO TRANSFERASE 23 U/L (10-37); BILIRUBIN,TOTAL 0.3 MG/DL (0.1-1.0); BLOOD UREA NITROGEN 14 MG/DL (7-18); CHLORIDE 106 MMOL/L (99-107); CREATININE 0.61 MG/DL (0.60-1.10); GLUCOSE 172 MG/DL (70-104); POTASSIUM 3.8 MMOL/L (3.5-5.1); SODIUM 143 MMOL/L (135-145); TOTAL CARBON DIOXIDE 27.1 MMOL/L (24-32); TOTAL PROTEIN 5.3 G/DL (6.4-8.2); eGFR > 90 ML/MIN
--- NOTE | 2021-10-27 07:06 | NUR ---
Patient in room MED 309. I have received report from Keny OLIVA and had the opportunity to ask questions and assume patient care.
[2021-10-27] MEDS: K and/or MAG REPLACEMENT MC SCH ×2 (08:00→20:00)
[2021-10-27] MEDS: VANCOmycin 1250MG/NS 250ml Bag 250 ML IV SCH ×2 (08:51→14:02)
[2021-10-27] MEDS: levoFLOXACIN-Levaquin 750MG/D5 150 ML IV SCH (08:52)
[2021-10-27] MEDS: gabapentin 300mg capsule PO SCH ×2 (08:52→13:36)
[2021-10-27] MEDS: cetirizine 10mg tablet PO SCH (08:52)
[2021-10-27] MEDS: fenofibrate 145mg tablet PO SCH (08:52)
[2021-10-27] MEDS: metoprolol tartrate 50mg tablet PO SCH ×2 (08:53→20:53)
[2021-10-27] MEDS: aspirin 81mg, enteric-coated 1 TAB TABLET.DR PO SCH ×2 (08:53→20:49)
[2021-10-27] MEDS: lactobacillus rhamnosus 10,000 MMU CELLS/CAPSULE PO SCH ×2 (08:53→20:49)
[2021-10-27] MEDS: docusate sod 100mg capsule PO SCH ×2 (08:54→20:49)
[2021-10-27] MEDS: mupirocin 2% nasal ointment 1gm UD NS SCH (08:54)
[2021-10-27] MEDS: multivitamins, therapeutics tablet PO SCH (08:54)
[2021-10-27 11:00] VITALS: BP 101/60
[2021-10-27] MEDS: HYDROcodone/acetaminophen 10/325mg tab PO PRN ×2 (13:59→18:14)
[2021-10-27] MEDS: insulin Lispro (HumaLOG) vial - multi-dose SQ SCH ×2 (14:06→21:02)
--- NOTE | 2021-10-27 18:29 | NUR ---
Problems reprioritized. Patient report given, questions answered & plan of care reviewed with Keny OLIVA.
[2021-10-27 20:00] VITALS: BP 134/79
[2021-10-27] MEDS: atorvastatin 20mg tablet PO SCH (20:48)
[2021-10-27] MEDS: zolpidem 5mg tablet PO SCH (20:48)
[2021-10-28] MEDS: VANCOmycin 1250MG/NS 250ml Bag 250 ML IV SCH ×4 (00:37→23:46)
[2021-10-28] MEDS: heparin, porcine 5000 units/ml vial SQ SCH ×4 (00:37→23:46)
[2021-10-28] MEDS: ketorolac tromethamine 15mg/ml inj. IV SCH ×4 (02:58→21:34)
[2021-10-28 05:00] VITALS: BP 118/78
[2021-10-28 06:28] LABS: PLATELET COUNT 188 X10'3 (140-440); WHITE BLOOD COUNT 6.1 X10'3 (4.5-11.0)
[2021-10-28 06:30] LABS: BASOPHILS % (AUTO) 0.3 % (0-1); EOSINOPHILS # (AUTO) 0.1 X10'3 (0-0.9); EOSINOPHILS % (AUTO) 1.6 % (0-6); HEMATOCRIT 30.7 % (42.0-52.0); HEMOGLOBIN 10.3 g/dl (14.0-17.9); LYMPHOCYTES # (AUTO) 1.3 X10'3 (1.1-4.8); LYMPHOCYTES % (AUTO) 20.7 % (21-51); MEAN CORPUSCULAR HEMOGLOBIN 28.4 PG (27.0-31.0); MEAN CORPUSCULAR HGB CONC 33.7 g/dL (33.0-36.5); MEAN CORPUSCULAR VOLUME 84.2 FL (78-98); MEAN PLATELET VOLUME 8.4 FL (7.4-10.4); MONOCYTES # (AUTO) 0.6 X10'3 (0-0.9); MONOCYTES % (AUTO) 9.1 % (2-12); NEUTROPHILS # (AUTO) 4.1 X10'3 (1.8-7.7); NEUTROPHILS % (AUTO) 68.3 % (42-75); RED BLOOD COUNT 3.65 X10'6 (4.70-6.10)
[2021-10-28 06:33] LABS: ALANINE AMINOTRANSFERASE 17 U/L (12-78); ALBUMIN 2.2 G/DL (3.4-5.0); ALBUMIN/GLOBULIN RATIO 0.7 (1.1-1.5); ALKALINE PHOSPHATASE 65 IU/L (46-116); ANION GAP 6 (8-16); ASPARTATE AMINO TRANSFERASE 19 U/L (10-37); BILIRUBIN,TOTAL 0.4 MG/DL (0.1-1.0); BLOOD UREA NITROGEN 13 MG/DL (7-18); BUN/CREATININE RATIO 19.1 (5.4-32.0); CALCIUM 8.2 MG/DL (8.5-10.1); CHLORIDE 107 MMOL/L (99-107); CREATININE 0.68 MG/DL (0.60-1.10); GLUCOSE 171 MG/DL (70-104); POTASSIUM 3.9 MMOL/L (3.5-5.1); SODIUM 142 MMOL/L (135-145); TOTAL CARBON DIOXIDE 28.6 MMOL/L (24-32); TOTAL PROTEIN 5.5 G/DL (6.4-8.2); eGFR > 90 ML/MIN
[2021-10-28 07:00] VITALS: BP 132/52
[2021-10-28] MEDS: lactobacillus rhamnosus 10,000 MMU CELLS/CAPSULE PO SCH ×2 (07:49→21:38)
[2021-10-28] MEDS: fenofibrate 145mg tablet PO SCH (07:49)
[2021-10-28] MEDS: metoprolol tartrate 50mg tablet PO SCH ×2 (07:49→21:39)
[2021-10-28] MEDS: cetirizine 10mg tablet PO SCH (07:50)
[2021-10-28] MEDS: multivitamins, therapeutics tablet PO SCH (07:52)
[2021-10-28] MEDS: docusate sod 100mg capsule PO SCH ×2 (07:52→21:38)
[2021-10-28] MEDS: aspirin 81mg, enteric-coated 1 TAB TABLET.DR PO SCH ×2 (07:55→21:31)
[2021-10-28] MEDS: K and/or MAG REPLACEMENT MC SCH ×2 (07:56→20:00)
[2021-10-28] MEDS: insulin Lispro (HumaLOG) vial - multi-dose SQ SCH ×2 (09:03→14:13)
[2021-10-28] MEDS: levoFLOXACIN 750MG TABLET PO SCH (12:22)
[2021-10-28 13:07] VITALS: BP 135/78
[2021-10-28] MEDS: HYDROcodone/acetaminophen 10/325mg tab PO PRN (21:34)
[2021-10-28] MEDS: atorvastatin 20mg tablet PO SCH (21:38)
[2021-10-28] MEDS: zolpidem 5mg tablet PO SCH (21:39)
[2021-10-29 02:00] VITALS: BP 123/59
[2021-10-29] MEDS: ketorolac tromethamine 15mg/ml inj. IV SCH ×3 (02:53→14:49)
[2021-10-29 06:00] VITALS: BP 132/55
[2021-10-29] MEDS: heparin, porcine 5000 units/ml vial SQ SCH (07:29)
[2021-10-29] MEDS: metoprolol tartrate 50mg tablet PO SCH (07:29)
[2021-10-29] MEDS: aspirin 81mg, enteric-coated 1 TAB TABLET.DR PO SCH (07:30)
[2021-10-29] MEDS: docusate sod 100mg capsule PO SCH (07:30)
[2021-10-29] MEDS: multivitamins, therapeutics tablet PO SCH (07:30)
[2021-10-29] MEDS: cetirizine 10mg tablet PO SCH (07:30)
[2021-10-29] MEDS: fenofibrate 145mg tablet PO SCH (07:30)
[2021-10-29] MEDS: lactobacillus rhamnosus 10,000 MMU CELLS/CAPSULE PO SCH (07:30)
[2021-10-29] MEDS: VANCOmycin 1250MG/NS 250ml Bag 250 ML IV SCH ×2 (07:47→14:49)
[2021-10-29] MEDS: K and/or MAG REPLACEMENT MC SCH (08:00)
[2021-10-29 11:00] VITALS: BP 138/79
[2021-10-29] MEDS: levoFLOXACIN 750MG TABLET PO SCH (11:00)
--- NOTE | 2021-10-29 13:18 | NUR ---
Reassessment: Pt s/p closure of sternal wound 10/25; Continues on CCHO diet w/ decreased intake since procedure, avg 68% x 11 meals partially meeting needs. Pt may benefit from Franco smoothies BID to assist w/ wound healing; to be sent pending MD verification in EMR. LBM 10/28 receiving routine colace. Will continue to monitor. Recommendations: 1) Consider liberalizing to regular diet if MD agreeable 2) [place] food preferences: no milk to drink, ice cream, lettuce, turkey, tea, chicken, oatmeal, peas, or carrots; vanilla almond milk WB, salsa WB 3) Franco Smoothies BIDBD; pending MD verification 4) Continue routine MVI for wound healing 5) Routine bowel care 6) Weekly wts Addendum: 10/29/21 at [address] Amended: Links added.
[2021-10-29] MEDS: insulin Lispro (HumaLOG) vial - multi-dose SQ SCH (13:39)
[2021-10-29 15:00] VITALS: BP 137/64
--- NOTE | 2021-10-29 17:12 | NUR ---
1710 Pt discharged home with spouse. All discharged instructions given to pt and spouse. All questions answered. Pt left via wheelchair to private car.
[2021-10-29] MEDS ORDERED: JUVEN Smoothie Arginine/Glut./Ca2+Bmb (Juven 19.3pkt) 240ml cup PO SCH (17:30)
== END 2021-10-29 17:10 | disposition home or self-care (01) | DRG 856 ==
LOC: EEVIPCON 23:05 → ER 23:05 → ED HOLD 10-23 03:15 → MED 3N 10-23 07:13
PROVIDERS: ADMIT Internal Medicine; ATTEND Family Medicine
PROC: 0KXJ0ZZ Transfer Left Thorax Muscle, Open Approach (ICD-10-PCS; 2021-10-25)
PROC: 0KXH0ZZ Transfer Right Thorax Muscle, Open Approach (ICD-10-PCS; 2021-10-25)
PROC: 0PD00ZZ Extraction of Sternum, Open Approach (ICD-10-PCS; principal; 2021-10-25 12:49)
DX: T81.43XA Infection following a procedure, organ and space surgical site, initial encounter (principal); J98.51 Mediastinitis; M86.8X8 Other osteomyelitis, other site; E11.69 Type 2 diabetes mellitus with other specified complication; E78.00 Pure hypercholesterolemia, unspecified; I10 Essential (primary) hypertension; G47.33 Obstructive sleep apnea (adult) (pediatric); I25.10 Atherosclerotic heart disease of native coronary artery without angina pectoris; R22.32 Localized swelling, mass and lump, left upper limb; E78.5 Hyperlipidemia, unspecified; E11.649 Type 2 diabetes mellitus with hypoglycemia without coma; E66.9 Obesity, unspecified; Y83.2 Surgical operation with anastomosis, bypass or graft as the cause of abnormal reaction of the patient, or of later complication, without mention of misadventure at the time of the procedure; Z95.1 Presence of aortocoronary bypass graft; Z87.891 Personal history of nicotine dependence; Z79.899 Other long term (current) drug therapy; Y92.89 Other specified places as the place of occurrence of the external cause; Z88.1 Allergy status to other antibiotic agents; Z95.0 Presence of cardiac pacemaker; Z68.36 Body mass index [BMI] 36.0-36.9, adult
CPT/HCPCS: 99285; Z7506; Z7508; 36415; 71045; 71046; 71250; 80053; 80202; 81001; 82948; 83605; 83735; 85007; 85025; 85651; 86140; 86885; 86900; 86901; 86920; 87040; 93005; 93971; 97110; 97161; 97530; A4618; A6449; A7000; G0378; J0690; J1644; J1815; J1885; J1956; J2250; J2270; J2405; J2704; J2710; J3010; J3370; J3475; J3490; J7030; J7050; J7120; S0020

== ENCOUNTER 2022-01-07 07:53 | Outpatient (CLI) | payer BC ==
[~2022-01-07 07:53] MED LIST changes: -CLOP75TA34 PO; -EMPA25TA PO; -FLUT16SP13 BOTHNARES; -GABA300C PO; -GLYB5TAB7 PO; -HYDR-3965 PO; +HYDR-3972 PO; +LEVO750P7 IV; -LEVO750T46 PO; -OMEG1CAP2 PO; -TRAM50TA2 PO; +VANC1FRO2 IV
[2022-01-07 08:30] LABS: BASOPHILS % (AUTO) 0.6 % (0-1); EOSINOPHILS # (AUTO) 0.2 X10'3 (0-0.9); EOSINOPHILS % (AUTO) 2.4 % (0-6); HEMATOCRIT 44.1 % (42.0-52.0); HEMOGLOBIN 14.6 g/dl (14.0-17.9); LYMPHOCYTES # (AUTO) 1.4 X10'3 (1.1-4.8); LYMPHOCYTES % (AUTO) 18.4 % (21-51); MEAN CORPUSCULAR HEMOGLOBIN 27.2 PG (27.0-31.0); MEAN CORPUSCULAR VOLUME 82.4 FL (78-98); MEAN PLATELET VOLUME 8.4 FL (7.4-10.4); MONOCYTES # (AUTO) 0.6 X10'3 (0-0.9); MONOCYTES % (AUTO) 7.6 % (2-12); NEUTROPHILS # (AUTO) 5.5 X10'3 (1.8-7.7); PLATELET COUNT 214 X10'3 (140-440); RED BLOOD COUNT 5.36 X10'6 (4.70-6.10); RED CELL DISTRIBUTION WIDTH 15.2 % (11.5-14.5); WHITE BLOOD COUNT 7.7 X10'3 (4.5-11.0)
[2022-01-07 08:46] LABS: ALANINE AMINOTRANSFERASE 32 U/L (12-78); ALBUMIN 3.7 G/DL (3.4-5.0); ALKALINE PHOSPHATASE 78 IU/L (46-116); ANION GAP 7 (8-16); ASPARTATE AMINO TRANSFERASE 21 U/L (10-37); BILIRUBIN,TOTAL 0.4 MG/DL (0.1-1.0); BLOOD UREA NITROGEN 18 MG/DL (7-18); BUN/CREATININE RATIO 25.4 (5.4-32.0); CHLORIDE 105 MMOL/L (99-107); CREATININE 0.71 MG/DL (0.60-1.10); GLUCOSE 192 MG/DL (70-104); POTASSIUM 3.6 MMOL/L (3.5-5.1); SODIUM 135 MMOL/L (135-145); TOTAL PROTEIN 7.4 G/DL (6.4-8.2); eGFR > 90 ML/MIN
[2022-01-09 19:11] LABS: TESTOSTERONE, FREE, DIRECT 18.3 pg/mL (6.6-18.1)
== END 2022-01-07 23:59 | disposition home or self-care (01) ==
LOC: LAB 07:53
PROVIDERS: ATTEND Family Medicine
DX: Z00.01 Encounter for general adult medical examination with abnormal findings (principal)
CPT/HCPCS: 36415; 80053; 84402; 84403; 85025; 85651; 86140

== ENCOUNTER 2022-04-10 07:18 | Outpatient (CLI) | payer BC ==
[2022-04-10 08:12] LABS: BASOPHILS % (AUTO) 0.4 % (0-1); EOSINOPHILS # (AUTO) 0.1 X10'3 (0-0.9); EOSINOPHILS % (AUTO) 1.5 % (0-6); HEMATOCRIT 50.1 % (42.0-52.0); HEMOGLOBIN 16.8 g/dl (14.0-17.9); LYMPHOCYTES # (AUTO) 1.6 X10'3 (1.1-4.8); LYMPHOCYTES % (AUTO) 18.8 % (21-51); MEAN CORPUSCULAR HEMOGLOBIN 27.7 PG (27.0-31.0); MEAN CORPUSCULAR HGB CONC 33.5 g/dL (33.0-36.5); MEAN CORPUSCULAR VOLUME 82.7 FL (78-98); MEAN PLATELET VOLUME 8.8 FL (7.4-10.4); MONOCYTES # (AUTO) 0.5 X10'3 (0-0.9); MONOCYTES % (AUTO) 6.1 % (2-12); NEUTROPHILS # (AUTO) 6.4 X10'3 (1.8-7.7); NEUTROPHILS % (AUTO) 73.2 % (42-75); PLATELET COUNT 224 X10'3 (140-440); RED BLOOD COUNT 6.07 X10'6 (4.70-6.10); RED CELL DISTRIBUTION WIDTH 15.1 % (11.5-14.5); WHITE BLOOD COUNT 8.7 X10'3 (4.5-11.0)
[2022-04-10 08:19] LABS: CLARITY,URINE CLEAR (Clear); COLOR,URINE YELLOW (Yellow); GLUCOSE, URINE >=1000 mg/dl (Neg); KETONES,URINE NEGATIVE (Neg); LEUKOCYTE ESTERASE ,URINE NEGATIVE (Neg); NITRITES, URINE NEGATIVE (Neg); OCCULT BLOOD,URINE NEGATIVE (Neg); PROTEIN,URINE NEGATIVE (Neg); UROBILINOGEN,URINE 0.2 E.U/dL (0.2-1.0)
[2022-04-10 08:21] LABS: UA COLLECTION TYPE VOIDED
[2022-04-10 08:38] LABS: ALANINE AMINOTRANSFERASE 44 U/L (12-78); ALBUMIN 4.1 G/DL (3.4-5.0); ALBUMIN/GLOBULIN RATIO 1.1 (1.1-1.5); ALKALINE PHOSPHATASE 73 IU/L (46-116); ANION GAP 7 (8-16); ASPARTATE AMINO TRANSFERASE 31 U/L (10-37); BILIRUBIN,TOTAL 0.6 MG/DL (0.1-1.0); BLOOD UREA NITROGEN 19 MG/DL (7-18); BUN/CREATININE RATIO 18.4 (5.4-32.0); CALCIUM 9.5 MG/DL (8.5-10.1); CHLORIDE 105 MMOL/L (99-107); CHOL/HDL RATIO 13.9 (0.00-4.99); CHOLESTEROL 223 MG/DL (0-200); CREATININE 1.03 MG/DL (0.60-1.10); GLUCOSE 165 MG/DL (70-104); HDL CHOLESTEROL 16 MG/DL (35-60); LDL CHOLESTEROL 100 MG/DL (50-100); POTASSIUM 4.1 MMOL/L (3.5-5.1); SODIUM 139 MMOL/L (135-145); TOTAL CARBON DIOXIDE 27.4 MMOL/L (24-32); TRIGLYCERIDES 696 MG/DL (20-135); eGFR 73 ML/MIN
[2022-04-10 08:39] LABS: BACTERIA,URINE FEW /HPF (Neg); RBC,URINE 0-2 /HPF (0-2); SQUAMOUS EPITHELIAL CELL,UR FEW /LPF (FEW); WBC,URINE 0-4 /HPF (0-4)
[2022-04-10 08:43] LABS: HEMOGLOBIN A1C 7.2 % (4.5-6.2)
[2022-04-11 12:11] LABS: MICROALB/CRT, RATIO 184 mg/g creat (0-29)
== END 2022-04-10 23:59 | disposition home or self-care (01) ==
LOC: LAB 07:18
PROVIDERS: ATTEND Family Medicine
DX: Z00.00 Encounter for general adult medical examination without abnormal findings (principal); E29.1 Testicular hypofunction; E11.9 Type 2 diabetes mellitus without complications; I10 Essential (primary) hypertension; E03.9 Hypothyroidism, unspecified
CPT/HCPCS: 36415; 80053; 80061; 81001; 82043; 82570; 83036; 84402; 84403; 84439; 84443; 85025; 85651; 86140

== ENCOUNTER 2022-10-11 07:56 | Outpatient (CLI) | payer BC ==
[~2022-10-11] VITALS: Ht 170.2 cm; Wt 115.9 kg
[2022-10-11] MEDS ORDERED: metoprolol tartrate 1mg/ml inj IV PRN (08:35)
[2022-10-11] MEDS ORDERED: nitroGLYCERIN 0.4mg SUBLingual tab SL PRN (08:35)
[2022-10-11] MEDS ORDERED: aminophylline 500mg/20ml vial IV PRN (08:35)
--- NOTE | 2022-10-11 09:11 | NUR ---
109. Addendum: 10/11/22 at 0912 by Samantha Porras RN Amended: Links added.
[2022-10-11 09:14] VITALS: BP 169/86
[2022-10-11] MEDS: regadenoson 0.4mg/5ml syringe IV ONE (09:18)
[2022-10-11 09:21] VITALS: BP 117/67
[2022-10-11 09:22] VITALS: BP 146/43
[2022-10-11 09:23] VITALS: BP 147/73
[2022-10-11 09:24] VITALS: BP 142/77
[2022-10-11 09:25] VITALS: BP 141/73
== END 2022-10-11 23:59 | disposition home or self-care (01) ==
LOC: RAD 07:56
PROVIDERS: ATTEND Internal Medicine Cardiovascular Disease
DX: I25.10 Atherosclerotic heart disease of native coronary artery without angina pectoris (principal)
CPT/HCPCS: 78452; 82948; 93017; A9500; J0280; J2785; J3490

== ENCOUNTER 2022-10-24 08:04 | Day surgery (SDC) | payer BC ==
[~2022-10-24] VITALS: Ht 170.2 cm; Wt 115.9 kg
[2022-10-24 08:20] VITALS: BP 130/80
[2022-10-24] MEDS ORDERED: FLUT15.87 (08:54)
[2022-10-24] MEDS ORDERED: GLYB5TAB7 PO (08:54)
[2022-10-24] MEDS ORDERED: GABA600T13 (08:54)
[2022-10-24] MEDS ORDERED: CLOP75TA34 PO (08:54)
[2022-10-24] MEDS ORDERED: LOSA100T57 PO (08:54)
[2022-10-24] MEDS ORDERED: TRAM50TA2 PO (08:54)
[2022-10-24] MEDS ORDERED: EMPA25TA PO (08:54)
[2022-10-24] MEDS ORDERED: ALPR-624 PO (08:55)
[2022-10-24] MEDS ORDERED: GLUC1CAP69 (08:56)
[2022-10-24] MEDS ORDERED: NITR0.4T51 SL (08:57)
[2022-10-24] MEDS ORDERED: ROSU40TA PO (08:58)
[2022-10-24] MEDS ORDERED: UBID100C16 PO ×2 (08:59→09:02)
[2022-10-24] MEDS ORDERED: MESA0.37 PO (09:01)
[2022-10-24] MEDS ORDERED: MIDAZolam 1 MG/ML 5ML VIAL ONE (09:51)
[2022-10-24] MEDS ORDERED: FENTANYL CITRATE/PF 50 MCG/1 ML VIAL ONE (09:51)
[2022-10-24 11:20] VITALS: BP 118/91
[2022-10-24 11:30] VITALS: BP 125/86
[2022-10-24 11:40] VITALS: BP 114/89
[2022-10-24 11:50] VITALS: BP 151/84
== END 2022-10-24 11:55 | disposition home or self-care (01) ==
LOC: GI LAB 08:04
PROVIDERS: ATTEND Internal Medicine Gastroenterology
DX: K51.011 Ulcerative (chronic) pancolitis with rectal bleeding (principal); K57.30 Diverticulosis of large intestine without perforation or abscess without bleeding; Z79.899 Other long term (current) drug therapy; Z87.891 Personal history of nicotine dependence; Z95.1 Presence of aortocoronary bypass graft
CPT/HCPCS: 45380; 82948; 99152; 99153; J2250; J3010; J7030; J7060; Z7512; A4620

== ENCOUNTER 2022-12-11 05:03 | Outpatient (CLI) | payer BC ==
[~2022-12-11 05:03] MED LIST changes: +ALPR-624 PO; +CLOP75TA34 PO; +EMPA25TA PO; +FLUT15.87; +GABA600T13; +GLUC1CAP69; +GLYB5TAB7 PO; -LEVO750P7 IV; +LOSA100T57 PO; +MESA0.37 PO; +NITR0.4T51 SL; +TRAM50TA2 PO; +UBID100C16 PO; -VANC1FRO2 IV
[2022-12-11 08:20] LABS: BASOPHILS % (AUTO) 0.5 % (0-1); EOSINOPHILS # (AUTO) 0.3 X10'3 (0-0.9); EOSINOPHILS % (AUTO) 2.5 % (0-6); HEMATOCRIT 53.8 % (42.0-52.0); HEMOGLOBIN 17.3 g/dl (14.0-17.9); LYMPHOCYTES # (AUTO) 1.7 X10'3 (1.1-4.8); LYMPHOCYTES % (AUTO) 17.2 % (21-51); MEAN CORPUSCULAR HEMOGLOBIN 25.2 PG (27.0-31.0); MEAN CORPUSCULAR HGB CONC 32.2 g/dL (33.0-36.5); MEAN CORPUSCULAR VOLUME 78.3 FL (78-98); MONOCYTES # (AUTO) 0.7 X10'3 (0-0.9); MONOCYTES % (AUTO) 6.8 % (2-12); NEUTROPHILS # (AUTO) 7.4 X10'3 (1.8-7.7); PLATELET COUNT 214 X10'3 (140-440); RED BLOOD COUNT 6.87 X10'6 (4.70-6.10); RED CELL DISTRIBUTION WIDTH 17.3 % (11.5-14.5); WHITE BLOOD COUNT 10.1 X10'3 (4.5-11.0)
[2022-12-11 08:31] LABS: ALANINE AMINOTRANSFERASE 43 U/L (12-78); ALBUMIN 4.1 G/DL (3.4-5.0); ALBUMIN/GLOBULIN RATIO 1.1 (1.1-1.5); ALKALINE PHOSPHATASE 58 IU/L (46-116); ANION GAP 6 (8-16); ASPARTATE AMINO TRANSFERASE 45 U/L (10-37); BILIRUBIN,TOTAL 0.4 MG/DL (0.1-1.0); BLOOD UREA NITROGEN 19 MG/DL (7-18); BUN/CREATININE RATIO 20.9 (5.4-32.0); CALCIUM 9.3 MG/DL (8.5-10.1); CHLORIDE 103 MMOL/L (99-107); CREATININE 0.91 MG/DL (0.60-1.10); GLUCOSE 96 MG/DL (70-104); POTASSIUM 3.9 MMOL/L (3.5-5.1); SODIUM 139 MMOL/L (135-145); TOTAL CARBON DIOXIDE 29.7 MMOL/L (24-32); eGFR 84 ML/MIN
[2022-12-11 08:36] LABS: HEMOGLOBIN A1C 7.3 % (4.5-6.2)
[2022-12-11 08:39] LABS: CHOL/HDL RATIO 10.6 (0.00-4.99); CHOLESTEROL 202 MG/DL (0-200); HDL CHOLESTEROL 19 MG/DL (35-60); LDL CHOLESTEROL 115 MG/DL (50-100); TRIGLYCERIDES 465 MG/DL (20-135)
[2022-12-11 08:40] LABS: CLARITY,URINE CLEAR (Clear); COLOR,URINE YELLOW (Yellow); GLUCOSE, URINE >=1000 mg/dl (Neg); KETONES,URINE NEGATIVE (Neg); LEUKOCYTE ESTERASE ,URINE NEGATIVE (Neg); NITRITES, URINE NEGATIVE (Neg); OCCULT BLOOD,URINE NEGATIVE (Neg); PROTEIN,URINE TRACE mg/dl (Neg); UROBILINOGEN,URINE 0.2 E.U/dL (0.2-1.0)
[2022-12-11 08:52] LABS: UA COLLECTION TYPE VOIDED
[2022-12-11 08:53] LABS: BACTERIA,URINE NONE SEEN /HPF (Neg); RBC,URINE NONE SEEN /HPF (0-2); SQUAMOUS EPITHELIAL CELL,UR FEW /LPF (FEW); WBC,URINE NONE SEEN /HPF (0-4)
== END 2022-12-11 23:59 | disposition home or self-care (01) ==
LOC: LAB 05:03
PROVIDERS: ATTEND Family Medicine
DX: E11.9 Type 2 diabetes mellitus without complications (principal); I10 Essential (primary) hypertension; E03.9 Hypothyroidism, unspecified; E78.5 Hyperlipidemia, unspecified
CPT/HCPCS: 36415; 80053; 80061; 81001; 82043; 82570; 83036; 84439; 84443; 85025

== ENCOUNTER 2023-02-27 05:06 | Outpatient (CLI) | payer BC ==
[~2023-02-27 05:06] MED LIST changes: -LOSA100T57 PO; +LOSA100T58 PO
== END 2023-02-27 23:59 | disposition home or self-care (01) ==
LOC: CARD DIAG 05:06
PROVIDERS: ATTEND Internal Medicine Cardiovascular Disease
DX: I08.0 Rheumatic disorders of both mitral and aortic valves (principal); R07.9 Chest pain, unspecified
CPT/HCPCS: 93306

== ENCOUNTER 2023-04-21 08:06 | Outpatient (CLI) | payer BC ==
[2023-04-21 09:04] LABS: CLARITY,URINE CLEAR (Clear); COLOR,URINE YELLOW (Yellow); GLUCOSE, URINE >=1000 mg/dl (Neg); KETONES,URINE NEGATIVE (Neg); LEUKOCYTE ESTERASE ,URINE NEGATIVE (Neg); NITRITES, URINE NEGATIVE (Neg); OCCULT BLOOD,URINE NEGATIVE (Neg); PROTEIN,URINE 30 mg/dl (Neg); UROBILINOGEN,URINE 0.2 E.U/dL (0.2-1.0)
[2023-04-21 09:06] LABS: BASOPHILS % (AUTO) 0.3 % (0-1); EOSINOPHILS # (AUTO) 0.1 X10'3 (0-0.9); EOSINOPHILS % (AUTO) 1.2 % (0-6); HEMATOCRIT 53.1 % (42.0-52.0); HEMOGLOBIN 17.1 g/dl (14.0-17.9); LYMPHOCYTES # (AUTO) 1.1 X10'3 (1.1-4.8); LYMPHOCYTES % (AUTO) 12.3 % (21-51); MEAN CORPUSCULAR HEMOGLOBIN 25.4 PG (27.0-31.0); MEAN CORPUSCULAR HGB CONC 32.3 g/dL (33.0-36.5); MEAN CORPUSCULAR VOLUME 78.6 FL (78-98); MEAN PLATELET VOLUME 8.5 FL (7.4-10.4); MONOCYTES # (AUTO) 0.6 X10'3 (0-0.9); NEUTROPHILS # (AUTO) 7.2 X10'3 (1.8-7.7); NEUTROPHILS % (AUTO) 79.2 % (42-75); PLATELET COUNT 187 X10'3 (140-440); RED BLOOD COUNT 6.75 X10'6 (4.70-6.10); RED CELL DISTRIBUTION WIDTH 16.6 % (11.5-14.5)
[2023-04-21 09:12] LABS: UA COLLECTION TYPE CLN CATCH MIDSTREAM
[2023-04-21 09:19] LABS: HEMOGLOBIN A1C 6.7 % (4.5-6.2)
[2023-04-21 09:20] LABS: BACTERIA,URINE NONE SEEN /HPF (Neg); RBC,URINE NONE SEEN /HPF (0-2); SQUAMOUS EPITHELIAL CELL,UR FEW /LPF (FEW); WBC,URINE 0-4 /HPF (0-4)
[2023-04-21 09:48] LABS: ALANINE AMINOTRANSFERASE 43 U/L (12-78); ALBUMIN/GLOBULIN RATIO 1.1 (1.1-1.5); ALKALINE PHOSPHATASE 54 IU/L (46-116); ANION GAP 14 (8-16); ASPARTATE AMINO TRANSFERASE 27 U/L (10-37); BILIRUBIN,TOTAL 0.6 MG/DL (0.1-1.0); BLOOD UREA NITROGEN 16 MG/DL (7-18); BUN/CREATININE RATIO 16.3 (10.0-20.0); CHLORIDE 104 MMOL/L (99-107); CHOLESTEROL 159 MG/DL (0-200); CREATININE 0.98 MG/DL (0.60-1.10); GLUCOSE 99 MG/DL (70-104); HDL CHOLESTEROL 20 MG/DL (35-60); LDL CHOLESTEROL 94 MG/DL (50-100); POTASSIUM 3.6 MMOL/L (3.5-5.1); SODIUM 142 MMOL/L (135-145); TOTAL PROTEIN 7.6 G/DL (6.4-8.2); TRIGLYCERIDES 314 MG/DL (20-135); eGFR 77 ML/MIN
[2023-04-21 09:57] LABS: CALCIUM 8.9 MG/DL (8.5-10.1)
== END 2023-04-21 23:59 | disposition home or self-care (01) ==
LOC: LAB 08:06
PROVIDERS: ATTEND Family Medicine
DX: Z00.01 Encounter for general adult medical examination with abnormal findings (principal); E11.9 Type 2 diabetes mellitus without complications; E78.5 Hyperlipidemia, unspecified
CPT/HCPCS: 36415; 80053; 80061; 81001; 82043; 83036; 84402; 84403; 84439; 84443; 85025